=== PATIENT | female | born 1940 | race Caucasian/White ===

== ENCOUNTER 2020-03-17 08:03 | Outpatient (CLI) | payer OTHER, SELFPAY ==
--- NOTE | ~2020-03-17 | XR_ITS ---
EXAMINATION: XR chest 2V EXAM DATE: 03/17/2020 08:25 INDICATION: Shortness of breath. TECHNIQUE: Frontal and lateral projections of the chest obtained and reviewed. There is no prior rohini dy for comparison. FINDINGS: Right middle lobe granuloma. The lungs are otherwise clear. There are no pleural effusion s. The cardiomediastinal silhouette is within normal limits. There is no pneumothorax suspected. P atient has diffuse idiopathic skeletal hyperostosis (DISH). IMPRESSION: No acute cardiopulmonary findings. Reviewed, dictated and finalized at location B.
== END 2020-03-17 08:04 | disposition home or self-care (01) ==
LOC: ANHIMG 08:13
PROVIDERS: PCP Family Medicine; Visit Provider Family Medicine
DX: R06.02 Shortness of breath (principal)
CPT/HCPCS: 71046

== ENCOUNTER 2021-05-06 08:35 | Outpatient (CLI) | payer OTHER, SELFPAY ==
[2021-05-06 09:04] LABS: Anion Gap 8 mmol/L (8-16); Blood Urea Nitrogen 13 mg/dL (7-17); Carbon Dioxide 27 mmol/L (22-30); Chloride 103 mmol/L (98-107); Estimated Glomerular Filt Rate 60; Glucose 112 mg/dL (65-110); Potassium 4.3 mmol/L (3.4-5.0); Sodium 138 mmol/L (137-145)
== END 2021-05-06 08:36 | disposition home or self-care (01) ==
LOC: ANHSURGERY 08:40
PROVIDERS: Anesthesiology; PCP Family Medicine; Visit Provider Surgery
DX: Z79.899 Other long term (current) drug therapy (principal); Z01.818 Encounter for other preprocedural examination
CPT/HCPCS: 36415; 80048

== ENCOUNTER 2021-05-12 01:12 | Day surgery (SDC) | payer OTHER, SELFPAY ==
[2021-05-03 15:22] VITALS: BMI 29.3
--- NOTE | 2021-05-11 13:56 | WPDANESEPPF ---
Anes - Initial Pre Proc Eval Procedure: Operation Date: 05/12/21 10:30 Proposed Procedures p Umbilical Hernia Repair with Mesh - Alexis Rodas MD Date/Time: 05/11/21 13:56 Surgeon: Alexis Rodas MD Pre Op Diagnosis: Umbilical Hernia Patient Data Age: 80 Gender: F Height: 1.55 m Weight: 70.45 kg Allergies Allergy/AdvReac Type Severity Reaction Status Date / Time No Known Allergies Allergy Verified 05/12/21 08:37 Home Medications Medication Instructions Recorded Confirmed Type magnesium 200 mg tablet 200 mg PO DAILY 12/01/20 05/12/21 History cholecalciferol (vitamin D3) 1,250 mcg PO DAILY 05/03/21 05/12/21 History lisinopril-hydrochlorothiazide 1 tablet DAILY 05/03/21 05/12/21 History rosuvastatin 10 mg HS 05/03/21 05/12/21 History onzurxtgwkuu-kvn-cmsz-FA-vit K 1 tab-cap PO DAILY 05/12/21 05/12/21 History [Multi For Her] Patient hx anesthesia problems: none Family hx anesthesia problems: none PMFSH Past Medical History Medical History Combined hyperlipidemia Essential hypertension H/O vaginal delivery x4 Umbilical hernia without obstruction and without gangrene Vitamin D deficiency Surgical History Surgical History S/P cholecystectomy (~1979) Family History Family History Mother Family history of dementia Hypertension Father Hypertension Social History Social History Social History: Retired, . 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 Smoking status: Never smoker Second hand tobacco smoke exposure: No Alcohol intake: current Drinks per week: 3 Substance use: never Substance use type: does not use Living arrangements: with family Spiritual care concerns: No Anes - Eval Final PreProcedure Day of Procedure 05/11/21 13:56 Patient weight: overweight Heart: regular rate and rhythm Lungs: clear to auscultation and normal air movement Airway: Mallampati scale class II Neurological: alert and oriented Last oral intake: >/= 8 hours ASA classification: II Emergent: no Anesthetic plan: proceed Anesthesia type and monitoring: general GIVS and LMA Informed Consent: The patient's anesthetic plan and its attendant risks and benefits were discussed with the patient/family/POA. Questions were solicited and answers provided to the satisfaction of the patient/family/POA.
[2021-05-12] VITALS (7 sets, daily range): BP systolic 117–141; BP diastolic 58–65; PULSE 77–90; RESP 12–20; TEMP 36.3–37.1; O2SAT 98–100
[2021-05-12] MEDS: ACETAMINOPHEN 500 MG TABLET 1000 MG PO (08:49)
[2021-05-12] MEDS: LACTATED RINGERS 1,000 ML 30 ML IV CONT (08:58)
[2021-05-12] MEDS: KETOROLAC 15 MG/ML VIAL (*BKC) IV PUSH (09:00)
--- NOTE | 2021-05-12 10:09 | WPDHPUPDATE1 ---
History and Physical Update Update Date/Time: 05/12/21 10:09 History and Physical has been reviewed, including an updated exam of the patient. There are NO changes in the patient's condition. Risks, benefits, and alternatives have been discussed and questions answered. Patient agrees to proceed with procedure.
[2021-05-12] MEDS: ceFAZolin 2 GM/D5W 50 ML 2 GM/50 ML BAG IVPB (10:18)
--- NOTE | 2021-05-12 11:47 | SUR.PHASEI ---
DR. MORAN AWARE OF PATIENT'S ABNORMAL HEART RHYTHMS. NO SOB. NORMAL HR, BP.
--- NOTE | 2021-05-12 11:47 | W.PM.PROC2 ---
Procedure Note - Detailed Date of Procedure 05/12/21 Pre-op Diagnosis Umbilical Hernia Post-op Diagnosis same Procedure Performed Umbilical hernia repair with 6.6 cm Parietex underlay mesh Surgeon Alexis Rodas MD Associate Teacher Jennie STEWARTA Anesthesia MAC and local (1% lidocaine with epinephrine) Indications Patient has a sizable bulge at the umbilicus which is occasionally painful. She was found to have an umbilical hernia in the office in is taken to surgery now for repair. Findings Umbilical hernia with chronically incarcerated omentum. Defect was about 2 cm. Description of Procedure Patient was taken to surgery and IV sedation was administered. Prep and drape was carried out. The proposed incision was marked along the upper margin of the umbilicus. Local was infiltrated in the area of the anticipated incision and in the deeper subcutaneous tissues. Incision was made dissection was carried down to the hernia sac. The sac was quite large. It was dissected free from the surrounding subcutaneous and the umbilical skin was dissected off the sac. I dissected down to the neck of the hernia sac. Additional local was infiltrated into the neck of the hernia sac as well as to the surrounding fascia. I then divided the hernia sac at its neck and removed the hernia sac. This was discarded. Some of the more chronically incarcerated omentum was then divided using the cautery and this was discarded as well. The remaining omentum was able to be reduced but with some difficulty. Eventually it was completely reduced. I undermined the subcutaneous all around the edges of the hernia defect in anticipation of placement of transfascial sutures. I then infiltrated additional local into the fascia all around the hernia defect. A 6.6 cm Parietex [place] tribe was chosen. It was placed in the defect and centered symmetrically. Cranial and caudal transfascial sutures were then placed. These were placed in such a fashion as to draw the edges of the hernia defect towards 1 another. I then placed right and left lateral transfascial sutures. These were all 0 Ethibond suture. Finally I closed the hernia defect with izjjzi-ks-ysysm mattress sutures of 0 Ethibond. Each of these incorporated a bit of mesh as well. More local was infiltrated all around the area of the repair. I then sutured the umbilical skin to the fascia. The left lateral aspect of the umbilical skin was quite distended from the hernia and was a potential space after repair. I sutured this to some of the subcutaneous trying to obliterate as much space as possible. Once the subcutaneous was adequately closed, I then loosely approximated the skin with interrupted 3 0 and 4 0 Vicryl subcuticular suture. Finally the skin was closed with a running 4-0 Monocryl skin suture. The wound was dressed with Exofin surgical adhesive. Patient was awakened and taken to recovery in good condition. Sponge and needle counts were correct x2. Implants 6.6 cm Parietex [place] tribe Estimated Blood Loss -5.0 Drains No Packing No Pathology none sent Complications No immediate complications Condition stable Disposition PACU
== END 2021-05-12 13:10 | disposition home or self-care (01) ==
PROVIDERS: PCP Family Medicine; Visit Provider Surgery
PROC: (CPT 49585; principal; 2021-05-12 10:30)
DX: K42.9 Umbilical hernia without obstruction or gangrene (principal); E78.2 Mixed hyperlipidemia; I10 Essential (primary) hypertension; E55.9 Vitamin D deficiency, unspecified
CPT/HCPCS: 49585; 36415; 80048; A9270; C1781; J0690; J1100; J1885; J2405; J2704; J3010; J7120

== ENCOUNTER 2023-04-27 14:48 | Outpatient (CLI) | payer OTHER, SELFPAY ==
[2023-04-27 18:32] LABS: Potassium 3.8 mmol/L (3.4-5.0)
[2023-04-27 18:34] LABS: Alanine Aminotransferase 20 U/L (6-35); Albumin Level 3.9 g/dL (3.5-5.1); Alkaline Phosphatase 68 U/L (38-126); Anion Gap 9 mmol/L (8-16); Aspartate Amino Transferase 26 U/L (14-36); Bilirubin,Total 0.5 mg/dL (0.2-1.3); Blood Urea Nitrogen 21 mg/dL (7-17); Calcium 9.8 mg/dL (8.4-10.2); Carbon Dioxide 23 mmol/L (22-30); Chloride 100 mmol/L (98-107); Estimated Glomerular Filt Rate 48; Glucose 97 mg/dL (65-110); Sodium 132 mmol/L (137-145)
== END 2023-04-27 14:49 | disposition home or self-care (01) ==
LOC: ANHGOSHLAB 14:49
PROVIDERS: PCP Family Medicine; Visit Provider Nurse Practitioner Family
DX: Z00.00 Encounter for general adult medical examination without abnormal findings (principal); I10 Essential (primary) hypertension; R63.4 Abnormal weight loss; R63.0 Anorexia
CPT/HCPCS: 36415; 80053

== ENCOUNTER 2023-05-04 14:35 | Outpatient (CLI) | payer OTHER, SELFPAY ==
--- NOTE | ~2023-05-04 | CT_ITS ---
EXAMINATION: CT abdomen w con DATE: 05/04/2023 15:05 INDICATION: Abnormal weight loss. TECHNIQUE: Computed tomography (CT) of the abdomen was performed with 100 mL Omnipaque 350 intravenou s contrast. Automated exposure control and iterative reconstruction technique were employed. The dose -length product was 232.34 mGy-cm. COMPARISON: None. FINDINGS: The visualized portions of the lung bases demonstrate mild atelectasis. A calcified right l juliet nodule and calcified right hilar lymph nodes are consistent with old granulomatous disease. No pl eural effusion. The heart size is normal. There are coronary artery calcifications. No pericardial ef fusion. There is a 5 mm cyst in the liver. There are changes of cholecystectomy. The spleen, pancreas , adrenal glands, and kidneys are normal. Partially visualized is wall thickening of the ascending co karly with surrounding fat stranding. There is mild ileocolic lymphadenopathy. The largest node measure s 11 x 11 mm. There is no free intraperitoneal fluid. There is severe lumbar spondylosis. IMPRESSION: 1. Partially visualized wall thickening of the ascending colon suspicious for primary malignancy. Pel vis CT with contrast is recommended. 2. Mild ileocolic lymphadenopathy suspicious for metastatic disease. Reviewed, dictated and finalized at location A. IMPRESSION: 1. Partially visualized wall thickening of the ascending colon suspicious for p rimary malignancy. Pelvis CT with contrast is recommended. 2. Mild ileocolic lymphadenopathy suspicious for metastatic disease.
== END 2023-05-04 14:36 | disposition home or self-care (01) ==
PROVIDERS: PCP Family Medicine; Visit Provider Nurse Practitioner Family
DX: R63.4 Abnormal weight loss (principal); R63.0 Anorexia
CPT/HCPCS: 74160; Q9967

== ENCOUNTER 2023-06-01 11:20 | Inpatient (IN) | payer OTHER, SELFPAY ==
[2023-06-01] VITALS (13 sets, daily range): BP systolic 94–107; BP diastolic 55–85; PULSE 80–103; RESP 16–18; TEMP 36.2–36.6; O2SAT 99–100; BMI 23.6
--- NOTE | ~2023-06-01 | CT_ITS ---
EXAMINATION: CT diagnostic chest w con DATE: 06/03/2023 16:20 INDICATION: Suspected colon cancer, rule out metastases TECHNIQUE: Computed tomography (CT) of the chest was performed with 75 mL Omnipaque-350 intravenous c ontrast. Additional 3D reconstructions utilizing coronal maximum intensity projection (MIP) were perf ormed. Automated exposure control and iterative reconstruction technique were employed. The dose-jojo th product was 187.87 mGy-cm. COMPARISON: CT abdomen pelvis dated 06/01/2023 FINDINGS: Large calcified nodule right lower lobe and calcified right hilar lymph nodes consistent with old gra nulomatous disease. Scattered mild discoid atelectasis at the lingula and bilateral lower lobes. 2-3 mm pleural-based nodule in the right upper lobe. Additional 2 x 4 mm nodule at the junction of the li ngula and left upper lobe. No other suspicious pulmonary nodules, pneumonia, pulmonary edema or pleur al effusion. Heart size is normal. Atherosclerotic coronary artery calcification. No pericardial effu lu. Thoracic aorta is normal in caliber with no dissection. Small sliding-type hiatal hernia. No pa thologically enlarged thoracic lymphadenopathy. Cholecystectomy clips at the gallbladder fossa. Short segment of dilated small bowel seen in the visualized upper abdomen consistent with previously noted bowel obstruction at the level of the ileocecal valve. Mild thoracic dextrocurvature with mild spond ylosis. There are bridging osteophytes at multiple levels in the spine, consistent with diffuse idiop athic skeletal hyperostosis (DISH). IMPRESSION: 1. A couple <4 mm pulmonary nodules most likely sequela of old granulomatous disease along with calci fied right lower lobe nodule and calcified right hilar lymph nodes. No other lesions suspicious for m etastatic disease. Reviewed, dictated and finalized at location A. IMPRESSION: 1. A couple <4 mm pulmonary nodules most likely sequela of old granulomatous di sease along with calcified right lower lobe nodule and calcified right hilar ly mph nodes. No other lesions suspicious for metastatic disease.
--- NOTE | ~2023-06-01 | CT_ITS ---
CT of the Abdomen and Pelvis: Indication: Nausea, vomiting, diarrhea Technique: 2.5 mm axial scans were obtained through the abdomen and pelvis following intravenous adm inistration of 100 cc of Omnipaque 350. Dose reduction technique was used on this scan by utilizing a utomated exposure control and iterative reconstruction technique. The dose-length product (DLP) was 1 627.47 mGy-cm. COMPARISON: 05/04/2023 Findings: Scans through the lung bases are unremarkable. The liver, spleen, pancreas, adrenals and kidneys are within normal limits. Cholecystectomy clips are present. There are atherosclerotic calcifications of the aorta. No lymphadenopathy. There is masslike wall thickening which appears to be at the ileocecal valve/cecum. There is diffuse dilatation of small bowel proximal to this lesion. There is moderate stool in the distal large bowel. There are several shotty adjacent lymph nodes just superior to the lesion. Images through the pelvis were performed. Urinary bladder unremarkable. No adnexal mass evident. No a scites. Impression: Masslike wall thickening which appears to be at the cecum/ileocecal valve region, suspicious for oscar ocarcinoma, most likely of colonic origin. Associated at least partial small bowel obstruction. Shotty lymph nodes just superior to the lesion, suspicious for small local metastatic lymph nodes. Reviewed, dictated and finalized at location . 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 Associated at least partial small bowel obstruction. Shotty lymph nodes just superior to the lesion, suspicious for small local meta static lymph nodes.
[2023-06-01 12:28] LABS: Basophils Percent Auto 0.3 % (0.2-1.2); Eosinophils Percent Auto 0.1 % (0-4.4); Hematocrit 37.2 % (37.0-47.0); Hemoglobin 12.3 g/dL (12.0-15.0); Immature Granulocyte Absolute 0.04 K/mm3 (0.00-0.031); Immature Granulocyte Percent A 0.4 % (0-0.5); Lymphocytes Absolute Auto 1.82 K/mm3 (0.9-3.2); Lymphocytes Percent Auto 18.8 % (18.3-44.2); Mean Corpuscular HGB Conc 33.1 g/dl (32-36); Mean Corpuscular Hemoglobin 28.9 pg (26-34); Mean Corpuscular Volume 87.5 fl (80-100); Mean Platelet Volume 9.1 fl (7.4-10.4); Monocytes Absolute Auto 0.9 K/mm3 (0.1-0.6); Monocytes Percent Auto 9.2 % (2.6-8.5); Neutrophils Absolute Auto 6.9 K/mm3 (1.3-6.7); Neutrophils Percent Auto 71.2 % (45.5-73.1); Platelet Count Result 430 k/mm3 (150-375); Red Blood Count 4.25 M/mm3 (4.2-5.4); Red Cell Distribution Width 16.3 % (11.5-14.5); White Blood Count 9.7 K/mm3 (4.5-10.0)
[2023-06-01 12:37] LABS: Alanine Aminotransferase 26 U/L (6-35); Albumin Level 4.2 g/dL (3.5-5.1); Alkaline Phosphatase 80 U/L (38-126); Anion Gap 12 mmol/L (8-16); Aspartate Amino Transferase 31 U/L (14-36); Bilirubin,Total 0.6 mg/dL (0.2-1.3); Blood Urea Nitrogen 23 mg/dL (7-17); Calcium 9.3 mg/dL (8.4-10.2); Carbon Dioxide 25 mmol/L (22-30); Chloride 96 mmol/L (98-107); Estimated Glomerular Filt Rate 60; Glucose 102 mg/dL (65-110); Lipase 66 U/L (23-300); Potassium 3.5 mmol/L (3.4-5.0); Sodium 133 mmol/L (137-145)
--- NOTE | 2023-06-01 13:51 | ED.NAVMDI ---
HPI - Nausea/Vomiting/Diarrhea General Chief complaint: Nausea/Vomiting/Diarrhea Stated complaint: nausea and vomiting Time Seen by Provider: 06/01/23 13:12 Source: patient Mode of arrival: ambulatory Limitations: no limitations History of Present Illness HPI Narrative: 82-year-old female history significant for recent abnormal CT of the abdomen showing a liver mass presents the emergency room today with her and daughter with complaints of nausea and vomiting. Per the patient has been she has been vomiting for 3 weeks and unable to keep food down. Patient states she is able to keep water down. Denies any other symptoms at this time. Denies chest pain, dizziness, lightheadedness, back pain, dysuria, urinary frequency, abdominal pain. Per the patient's they were sent to [facility] [place] have not followed up with anybody regarding this mass yet. But states they who do [place] believe at [facility] for this issue. Related Data Home Medications Medication Instructions Recorded Confirmed magnesium 200 mg tablet 200 mg PO DAILY 12/01/20 06/01/23 cholecalciferol (vitamin D3) 1,250 1,250 mcg PO DAILY 05/03/21 06/01/23 mcg (50,000 unit) capsule ntzbbpjbo-ang-dozi fumarate 18 1 tab-cap PO DAILY 05/12/21 06/01/23 mg-FA 600 mcg-vit K 40 mcg capsule (Multi For Her) vit A 300 mcg-C 200 mg-E 27 1 tablet PO HS 06/03/21 06/01/23 mg-lutein 2 mg and minerals tablet (Healthy Eyes) Allergies Allergy/AdvReac Type Severity Reaction Status Date / Time No Known Allergies Allergy Verified 05/10/23 09:03 Review of Systems Review of Systems: All systems reviewed & are unremarkable except as noted in HPI and below PMFSH Past Medical History Medical History Abnormal CT of the abdomen Combined hyperlipidemia Elevated platelet count Essential hypertension H/O vaginal delivery x4 No appetite Umbilical hernia without obstruction and without gangrene Vitamin D deficiency Weight loss, unintentional Surgical History Surgical History H/O umbilical hernia repair Umbilical hernia repair with 6.6 cm Parietex underlay mesh S/P cholecystectomy (~1979) Family History Family History Mother Family history of dementia Hypertension Father Hypertension Social History Social History Social History: Retired, . 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 Smoking status: Never smoker Second hand tobacco smoke exposure: No Alcohol intake: current Drinks per week: 3 Substance use: never Substance use type: does not use Lack of Transportation: No Lack of Food: Never True Current Housing: I Have Housing Concerned About Future Housing: No Difficulty Paying Gas/Electric Bills: No Difficulty Paying for Meds: No Currently Unemployed: No Education: High School Diploma/GED Difficulty w/ Childcare or Family Care: No Living arrangements: with family Spiritual care concerns: No Exam Const: General: cooperative, healthy appearing, comfortable, no acute distress and well developed Orientation/consciousness: patient oriented x3 HENMT: Head: normal to inspection Eyes: General: appearance normal, both eyes and all related structures Resp: Effort & Inspection: normal respiratory effort and able to speak in complete sentences Auscultation: clear to auscultation bilaterally Cardio: Rate: regular rate Rhythm: regular rhythm Heart sounds: S1 normal heart sound present and S2 normal heart sound present GI: Inspection: normal to inspection GI Palp: Yes Soft to palpation and No Tenderness to palpation present (GI) Neuro: Gen
[2023-06-01 15:29] LABS: Add Urine Microscopic? YES; Appearance Urine Clear (Clear); Bacteria Urine None Seen /hpf; Bilirubin Urine Negative (Negative); Blood Urine Negative (Negative); Color Urine Yellow (Yellow); Glucose Urine UA Negative (Negative); Ketones Urine 2+ mg/dL (Negative); Leukocyte Esterase Ur Negative LEU/UL (Negative); Need Manual Microscopic Reviewed; Nitrate Urine Negative (Negative); Protein Urine Trace mg/dL (Negative); RBC Urine 0-2 /hpf (0-2); Specific Grav Ur 1.074 (1.001-1.035); Squamous Epithelial Cell Urine Few /hpf (Few); WBC Urine 0-5 /hpf; pH Urine 5.5 (5.0-9.0)
[2023-06-01] MEDS: PANTOPRAZOLE SODIUM IV 40 MG VIAL IV PUSH (15:39)
--- NOTE | 2023-06-01 16:14 | WPDGICN ---
Assessment and Plan Assessment and plan (1) Abnormal CT of the abdomen: Code(s): R93.5 - Abnormal findings on diagnostic imaging of other abdominal regions, including retroperitoneum Status: Acute Assessment and Plan: CT here today shows: Findings:? Scans through the lung bases are unremarkable. The liver, spleen, pancreas, adrenals and kidneys are within normal limits. Cholecystectomy clips are present. There are atherosclerotic calcifications of the aorta.? No lymphadenopathy. There is masslike wall thickening which appears to be at the ileocecal valve/cecum. There is diffuse dilatation of small bowel proximal to this lesion. There is moderate stool in the distal large bowel. There are several shotty adjacent lymph nodes just superior to the lesion. Images through the pelvis were performed. Urinary bladder unremarkable. No adnexal mass evident. No ascites. 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 Associated at least partial small bowel obstruction. Shotty lymph nodes just superior to the lesion, suspicious for small local metastatic lymph nodes. (2) Weight loss, unintentional: Code(s): R63.4 - Abnormal weight loss Status: Acute Assessment and Plan: she has gradually lost her appetite and because of some nausea has not eaten much in the last week to 10 days. She is able to hold down liquids and boost. (3) Nausea and vomiting: Code(s): R11.2 - Nausea with vomiting, unspecified Status: Acute Assessment and Plan: This began about 10 days ago. Plan She has been admitted and will be placed on liquid diet. We will gradually prep her for colonoscopy to be done on Sunday by Dr. Pettit. GI Consult Note Consult date/time: 06/01/23 16:14 HPI: Loly Duncan is a 82 year old female who presented to the emergency room today with complaints of not being able to eat. She has not been able to get any solid food down for least a week. He has had episodes of vomiting. She can drink liquids but nothing solid. She also has lost about 20 lb since November of this year. She denies abdominal pain. She has had no change in bowel habits, other than having some loose stools just a last couple days. She had CT scan last month showing abnormality in the cecum and ileocecal valve area. Suspecting with malignancy she had been referred to [facility] but had not seen anybody yet. The and then decided to have going to [facility] they want to find somebody here. She had an appointment with our office yesterday but did not show up. she has never had a colonoscopy. Review of Systems Review of Systems: All systems reviewed & are unremarkable except as noted in HPI and below PMFSH Past Medical History Medical History Abnormal CT of the abdomen Combined hyperlipidemia Elevated platelet count Essential hypertension H/O vaginal delivery x4 No appetite Umbilical hernia without obstruction and without gangrene Vitamin D deficiency Weight loss, unintentional Surgical History Surgical History H/O umbilical hernia repair Umbilical hernia repair with 6.6 cm Parietex underlay mesh S/P cholecystectomy (~1979) Family History Family History Mother Family history of dementia Hypertension Father Hypertension Social History Social History Social History: Retired, . 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 Smoking status: Never smoker Second hand tobacco smoke exposure: No Alcohol intake: current Drinks per week: 3 Substance use: never Substance use type: does n
[2023-06-01] MEDS: LACTATED RINGERS 1,000 ML 125 ML IV CONT (17:16)
--- NOTE | 2023-06-01 18:31 | ADMGEN ---
This patient, Loly Duncan, was admitted to Medical Room 260-01 at 1642. Patient/family oriented to hospital policies and general routines including ID bracelet, bed and alarms, visiting hours, pain management, procedures, bathroom and other care routines, personal items, smoking policy, room service/diet, and visiting hours. Information on how to activate the Rapid Response Team has been discussed. Patient/Family are encouraged to report perceived risks to care and to ask questions if they do not understand what they are told or what they should do.
--- NOTE | 2023-06-01 19:42 | PM.IMHP ---
H&P: HPI History of Present Illness Date/Time: 06/01/23 19:42 Chief Complaint: Nausea and Vomiting Narrative: 82 y/o F presents here with persistent nausea with occasional vomiting with PMH of HTN, HLD, and Vitamin D Deficiency. Patient reports she has been persistently nauseous for greater than 1 month, but less than 3 months - unclear start time. Describes poor appetite, nausea with eating, and occasional emesis. Has only been able to tolerate very small meals and has on average can keep most down. However, she reported to the GI corporate health consultant that her PO intake has worsened in the last week. No report of this during my history. No blood in vomit. No dark tarry stools. Reports bowel movements have been normal in consistency, last bowel movement this morning. +Fatigue, +Weakness. Per chart review, patient weighed 73 kgs in November of this year, currently weighs 55 kgs. No complaints at wellness visit on 12/12/22. Patient then saw primary on 04/27/23, at that visit she reported that for the previous 3-4 months she has been having pain in her stomach, poor appetite, and unintentional weight loss. CT scan was ordered of patient's abdomen at this visit, CT showed a partially visualized wall thickening of the ascending colon, suspicious for primary malignancy. No previous colonoscopy. Referred to Oncology ([facility]) and GI. Patient has GI appointment yesterday which was cancelled. Review of Systems Review of Systems: All systems reviewed & are unremarkable except as noted in HPI and below PMFSH Past Medical History Medical History Abnormal CT of the abdomen Combined hyperlipidemia Elevated platelet count Essential hypertension H/O vaginal delivery x4 No appetite Umbilical hernia without obstruction and without gangrene Vitamin D deficiency Weight loss, unintentional Surgical History Surgical History H/O umbilical hernia repair Umbilical hernia repair with 6.6 cm Parietex underlay mesh S/P cholecystectomy (~1979) Family History Family History Mother Family history of dementia Hypertension Father Hypertension Social History Social History (Updated 06/01/23 @ 20:31 by Dot Salomon APRN) Social History: Retired, . Lives at home with her . 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 Smoking status: Never smoker Second hand tobacco smoke exposure: No Alcohol intake: current Alcohol use details: Occasional, at holidays. Substance use: never Substance use type: does not use Lack of Transportation: No Lack of Food: Never True Current Housing: I Have Housing Concerned About Future Housing: No Difficulty Paying Gas/Electric Bills: No Difficulty Paying for Meds: No Currently Unemployed: No Education: High School Diploma/GED Difficulty w/ Childcare or Family Care: No Living arrangements: with family Occupation/Education: retired Spiritual care concerns: No Meds Home Medications and Allergies Home Medications Medication Instructions Recorded Confirmed Type magnesium 200 mg tablet 200 mg PO DAILY 12/01/20 06/01/23 History cholecalciferol (vitamin D3) 1,250 1,250 mcg PO DAILY 05/03/21 06/01/23 History mcg (50,000 unit) capsule nzrxbiocp-uas-qdgn fumarate 18 1 tab-cap PO DAILY 05/12/21 06/01/23 History mg-FA 600 mcg-vit K 40 mcg capsule (Multi For Her) vit A 300 mcg-C 200 mg-E 27 1 tablet PO HS 06/03/21 06/01/23 History mg-lutein 2 mg and minerals tablet (Healthy Eyes) lisinopril 20 1 tablet PO DAILY #30 tabs 01/29/23 06/01/23 Rx mg-hydrochlorothiazide 12.5 mg tablet rosuvastatin 10 mg tablet 10 mg PO HS #30 tabs 01/29/23 06/01/23 Rx Sleep Aid (diphenhydramine) 25 mg PO HS PRN Sleep 06/01/23 06/01/23 History Allergies Aller
[2023-06-01] MEDS: OPTI-GEN TAB 1 TABLET PO (23:22)
[2023-06-01] MEDS: diphenhydrAMINE HCl CAP 25 MG CAPSULE PO (23:22)
[2023-06-01] MEDS: ROSUVASTATIN 10 MG TABLET PO (23:22)
[2023-06-02] VITALS: BP 102/52; PULSE 75; RESP 20; TEMP 36.8; O2SAT 99
[2023-06-02] MEDS: LACTATED RINGERS 1,000 ML 125 ML IV CONT ×3 (01:26→15:17)
[2023-06-02 04:00] VITALS: BP 104/60; PULSE 72; RESP 20; TEMP 36.8; O2SAT 100
[2023-06-02 05:55] LABS: Basophils Absolute Auto 0.1 K/mm3 (0.0-0.1); Basophils Percent Auto 0.9 % (0.2-1.2); Eosinophils Absolute Auto 0.1 K/mm3 (0-0.3); Eosinophils Percent Auto 0.9 % (0-4.4); Hematocrit 31.6 % (37.0-47.0); Hemoglobin 10.3 g/dL (12.0-15.0); Immature Granulocyte Absolute 0.04 K/mm3 (0.00-0.031); Immature Granulocyte Percent A 0.5 % (0-0.5); Lymphocytes Absolute Auto 1.63 K/mm3 (0.9-3.2); Lymphocytes Percent Auto 21.8 % (18.3-44.2); Mean Corpuscular HGB Conc 32.6 g/dl (32-36); Mean Corpuscular Hemoglobin 29.1 pg (26-34); Mean Corpuscular Volume 89.3 fl (80-100); Mean Platelet Volume 9.4 fl (7.4-10.4); Monocytes Absolute Auto 0.8 K/mm3 (0.1-0.6); Neutrophils Absolute Auto 4.9 K/mm3 (1.3-6.7); Neutrophils Percent Auto 64.9 % (45.5-73.1); Platelet Count Result 316 k/mm3 (150-375); Red Blood Count 3.54 M/mm3 (4.2-5.4); Red Cell Distribution Width 16.1 % (11.5-14.5); White Blood Count 7.5 K/mm3 (4.5-10.0)
[2023-06-02 06:07] LABS: Anion Gap 8 mmol/L (8-16); Blood Urea Nitrogen 17 mg/dL (7-17); Calcium 8.8 mg/dL (8.4-10.2); Carbon Dioxide 26 mmol/L (22-30); Chloride 101 mmol/L (98-107); Estimated CRCL calculation 36 ml/min; Estimated Glomerular Filt Rate > 60; Glucose 72 mg/dL (65-110); Potassium 3.7 mmol/L (3.4-5.0); Sodium 135 mmol/L (137-145)
[2023-06-02] MEDS: PANTOPRAZOLE SODIUM IV 40 MG VIAL IV PUSH (08:01)
[2023-06-02] MEDS: MAGNESIUM OXIDE 200 MG TABLET PO (08:01)
[2023-06-02] MEDS: lisinopriL 20 MG TABLET PO (08:01)
[2023-06-02] MEDS: hydroCHLOROthiazide 12.5 MG CAPSULE PO (08:01)
[2023-06-02] MEDS: THERAPEUTIC MULTIVITAMINS/MINERALS TAB (*BKC) 1 TABLET PO (08:01)
--- NOTE | 2023-06-02 08:43 | WPDGIPROGNO ---
Progress Note: A&P Assessment and Plan (1) Abnormal CT of the abdomen: Code(s): R93.5 - Abnormal findings on diagnostic imaging of other abdominal regions, including retroperitoneum Status: Acute Assessment and Plan: CT here today shows: Findings:? Scans through the lung bases are unremarkable. The liver, spleen, pancreas, adrenals and kidneys are within normal limits. Cholecystectomy clips are present. There are atherosclerotic calcifications of the aorta.? No lymphadenopathy. There is masslike wall thickening which appears to be at the ileocecal valve/cecum. There is diffuse dilatation of small bowel proximal to this lesion. There is moderate stool in the distal large bowel. There are several shotty adjacent lymph nodes just superior to the lesion. Images through the pelvis were performed. Urinary bladder unremarkable. No adnexal mass evident. No ascites. 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 Associated at least partial small bowel obstruction. Shotty lymph nodes just superior to the lesion, suspicious for small local metastatic lymph nodes. (2) Weight loss, unintentional: Code(s): R63.4 - Abnormal weight loss Status: Acute Assessment and Plan: she has gradually lost her appetite and because of some nausea has not eaten much in the last week to 10 days. She is able to hold down liquids and boost. (3) Nausea and vomiting: Code(s): R11.2 - Nausea with vomiting, unspecified Status: Acute Assessment and Plan: This began about 10 days ago. Plan She has been admitted and will be placed on liquid diet. We will gradually prep her for colonoscopy to be done on Sunday by Dr. Pettit. Subjective Date/time seen: 06/02/23 08:43 she is tolerating liquids. She has only had some water in gel so far but is willing to try supplements or pudding today. I discussed with her and her son that we will begin her bowel prep this afternoon. Dr. Pettit will be doing her procedure Sunday morning as I will be out of town. Exam Const: General: cooperative, healthy appearing and thin Nutritional Appearance: thin Orientation/consciousness: patient oriented x3 HENMT: Head: normal to inspection Ears: hearing grossly normal bilaterally Mouth: Yes Normal oral and palatal mucosa present Eyes: General: appearance normal, both eyes and all related structures Neck: Neck: normal visual inspection Chest: Chest palpation & inspection: normal inspection of the chest Resp: Effort & Inspection: normal respiratory effort Auscultation: clear to auscultation bilaterally Cardio: Rate: regular rate Rhythm: regular rhythm GI: Inspection: normal to inspection Auscultation: normal bowel sounds Skin: General skin exam: normal color and no jaundice Neuro: General: patient oriented x3 Speech: normal speech Objective Data Vital Signs Vital Signs: Vital Signs - 24 hr 06/01/23 11:45 06/01/23 14:51 06/01/23 13:48 Temperature 36.2 C L 36.5 C Pulse Rate 103 H 84 Respiratory Rate 16 17 Blood Pressure 100/64 Pulse Oximetry 100 100 Oxygen Delivery Room Air 06/01/23 14:03 06/01/23 14:37 06/01/23 15:05 Temperature Pulse Rate 90 84 84 Respiratory Rate 16 Blood Pressure Pulse Oximetry 100 99 100 Oxygen Delivery 06/01/23 15:09 06/01/23 15:15 06/01/23 15:48 Temperature Pulse Rate 90 84 98 Respiratory Rate 18 Blood Pressure 101/74 Pulse Oximetry 100 100 Oxygen Delivery 06/01/23 16:36 06/01/23 17:11 06/01/23 16:55 Temperature 36.2 C L 36.6 C Pulse Rate 91 80 Respiratory Rate 16 18 Blood Pressure 107/85 102/55 L Pulse Oximetry 100 100 Oxygen Delivery Room Air 06/01/23 20:26 06/01/23 20:00 06/02/23 00:00 Temperature 36.5 C 36.8 C Pulse Rate 83 83 75 Respiratory Rate 18 18 20 Blood Pressure 94/56 L 10
--- NOTE | 2023-06-02 10:32 | PC.NURSE ---
spoke with about vit D dose. stated when he goes back home he will look at the bottle and let staff know due to unsure the exact dose now.
--- NOTE | 2023-06-02 11:27 | PM.IMPN ---
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 Associated at least partial small bowel obstruction. Shotty lymph nodes just superior to the lesion, suspicious for small local metastatic lymph nodes. Patient has been evaluated by GI and General surgery. She will undergo colonoscopy in 2 days and be on a liquid diet until then. (2) Weight loss, unintentional: Code(s): R63.4 - Abnormal weight loss Status: Acute Assessment and Plan: 30 lb weight loss and no appetite recently with associated findings of concern for colonic mass. Full liquid diet with dietary supplements until after colonoscopy (3) Nausea and vomiting: Code(s): R11.2 - Nausea with vomiting, unspecified Status: Acute Assessment and Plan: ER visit that led to admission was due to nausea and vomiting. Patient denies nausea at this time. She is tolerating full liquid diet. (4) Essential hypertension: Code(s): I10 - Essential (primary) hypertension Status: Chronic Assessment and Plan: Blood pressures have been soft. Patient is on IV fluids 125 per hour. Will hold lisinopril/ HCTZ for now. (5) No appetite: Code(s): R63.0 - Anorexia Status: Acute Assessment and Plan: See 1 and 2 Time Spent With Patient Time with patient: 25 - 35 minutes Subjective Date/time seen: 06/02/23 11:27 Interval history: From Surgery consultation note: This is an 82-year-old woman who presented to the emergency department on 06/01/2023 with reports of nausea and vomiting.? Patient states that she has not had any bowel issues and states that her bowels have been moving.? She also states that she does not see any blood in her stool or complain of black tarry stools.? She has not had an appetite and has been losing weight.? She denies any bloating associated with this.? She was seen in her PCP office on 04/27/2023 for weight loss.? She had lost about 30 lb unintentionally.? Her PCPs note says that she has had some abdominal pain for 3-4 months.? When asked her symptoms today she says she is not experiencing any abdominal pain.? A CT abdomen with contrast was obtained on 05/04/2023 by her PCP and this showed evidence of partial visualization of thickening of the ascending colon and mild ileocolic lymphadenopathy suspicious for primary malignancy.? She was also noted to have a 5 mm cyst in the liver without any definite signs of distant metastases.? Her PCPs office discuss the CT results and was in the process of arranging oncology and GI referral.? She presented back to the emergency department yesterday with ongoing worsening symptoms of poor appetite.? CT in the emergency department showed evidence of masslike wall thickening at the cecum/ileocecal valve region suspicious for adenocarcinoma.? There were signs of at least partial small bowel obstruction and enlarged lymph nodes just superior to the lesion.? No evidence of liver metastases.? Patient was admitted for further treatment and is currently on a liquid diet.? GI has seen the patient and is planning for colonoscopy on Sunday.? Patient has never had a colonoscopy before.? She does believe that her mother had colon cancer. Patient denies any symptoms at this time. Patient notes some memory problems and recent weight loss/decreased appetite. Family adds that patient was vomiting solid foods but tolerating liquids. Review of Systems Review of Systems: All systems reviewed & are unremarkable except as noted in HPI and below Exam Narrative: GENERAL: Generally well appearing, alert and oriented but forgetful, in no apparent distress. She is pleasant and conversant in full sentences. HEENT: Pupils are equally
--- NOTE | 2023-06-02 12:42 | PM.CNGS ---
Assessment and Plan Assessment and plan (1) Abnormal CT of the abdomen: Code(s): R93.5 - Abnormal findings on diagnostic imaging of other abdominal regions, including retroperitoneum Status: Acute Assessment and Plan: I reviewed the CT and discussed the findings with the patient and her family. She has evidence of a mass at the cecum which on imaging appears to be causing at least a partial small bowel obstruction. I interrogated patient thoroughly about any signs of obstruction, but she denies bloating, nausea, vomiting. She states that she just does not feel like eating and does not have an appetite. She has been having bowel movements. I agree with further evaluation by GI with colonoscopy. Will await those results to discuss further treatment options. If she is tolerating a diet and does not have findings suspicious for bowel obstruction, then further intervention could be delayed until after reviewing the biopsy results. I discussed that this is likely colon cancer but there does not appear to be any clear evidence of distant metastases. Will check CEA level and CT chest tomorrow for further workup. Patient may be a surgical candidate for right hemicolectomy, but timing of this will depend partially on the further workup and biopsy results. Will continue to follow along with patient. (2) Weight loss, unintentional: Code(s): R63.4 - Abnormal weight loss Status: Acute (3) Essential hypertension: Code(s): I10 - Essential (primary) hypertension Status: Chronic History of Present Illness Consult details Consult date: 06/02/23 Reason for consult: other (Cecal mass) Requesting physician: Patty Ricardo APRN Narrative: This is an 82-year-old woman who I am asked to see for a suspected colon mass on CT. She presented to the emergency department on 06/01/2023 with reports of nausea and vomiting. Patient states that she has not had any bowel issues and states that her bowels have been moving. She also states that she does not see any blood in her stool or complain of black tarry stools. She has not had an appetite and has been losing weight. She denies any bloating associated with this. She was seen in her PCP office on 04/27/2023 for weight loss. She had lost about 30 lb unintentionally. Her PCPs note says that she has had some abdominal pain for 3-4 months. When asked her symptoms today she says she is not experiencing any abdominal pain. A CT abdomen with contrast was obtained on 05/04/2023 by her PCP and this showed evidence of partial visualization of thickening of the ascending colon and mild ileocolic lymphadenopathy suspicious for primary malignancy. She was also noted to have a 5 mm cyst in the liver without any definite signs of distant metastases. Her PCPs office discuss the CT results and was in the process of arranging oncology and GI referral. She presented back to the emergency department yesterday with ongoing worsening symptoms of poor appetite. CT in the emergency department showed evidence of masslike wall thickening at the cecum/ileocecal valve region suspicious for adenocarcinoma. There were signs of at least partial small bowel obstruction and enlarged lymph nodes just superior to the lesion. No evidence of liver metastases. Patient was admitted for further treatment and is currently on a liquid diet. GI has seen the patient and is planning for colonoscopy on Sunday. Patient has never had a colonoscopy before. She does believe that her mother had colon cancer. Review of Systems Review of Systems: All systems reviewed & are unremarkable except as noted in HPI and below Constitutional: Constitutional: Reports as per HPI, Reports fatigue, Reports poor appetite and Reports weight loss Eyes: Eyes: Denies change in vision ENT: Denies hearing loss, Denies neck pain and Denies sore throat Cardiovascular: Cardiovascular: Denies chest pain and Denies dyspnea Respiratory: Resp
[2023-06-02 14:00] VITALS: BP 104/60; PULSE 74; RESP 16; TEMP 36.4; O2SAT 100
[2023-06-02] MEDS: MAGNESIUM CITRATE 300 ML BTL 180 ML PO (15:13)
[2023-06-02 20:00] VITALS: PULSE 74; RESP 16; O2SAT 100
[2023-06-02 20:54] VITALS: BP 127/63; PULSE 82; RESP 16; TEMP 36.4; O2SAT 100
[2023-06-02] MEDS: OPTI-GEN TAB 1 TABLET PO (20:55)
[2023-06-02] MEDS: traZODone HCL 50 MG TABLET PO (20:56)
[2023-06-02] MEDS: ROSUVASTATIN 10 MG TABLET PO (20:56)
[2023-06-03] MEDS: LACTATED RINGERS 1,000 ML 125 ML IV CONT ×2 (03:10→21:51)
[2023-06-03 05:21] LABS: Hematocrit 29.8 % (37.0-47.0); Hemoglobin 10.1 g/dL (12.0-15.0); Mean Corpuscular HGB Conc 33.9 g/dl (32-36); Mean Corpuscular Hemoglobin 29.7 pg (26-34); Mean Corpuscular Volume 87.6 fl (80-100); Mean Platelet Volume 9.3 fl (7.4-10.4); Platelet Count Result 298 k/mm3 (150-375); Red Cell Distribution Width 16.3 % (11.5-14.5); White Blood Count 7.3 K/mm3 (4.5-10.0)
[2023-06-03 05:33] VITALS: BP 108/54; PULSE 73; RESP 16; TEMP 36.9; O2SAT 98
[2023-06-03 05:34] LABS: Anion Gap 3 mmol/L (8-16); Blood Urea Nitrogen 12 mg/dL (7-17); Calcium 8.6 mg/dL (8.4-10.2); Carbon Dioxide 32 mmol/L (22-30); Chloride 101 mmol/L (98-107); Estimated CRCL calculation 36 ml/min; Estimated Glomerular Filt Rate > 60; Glucose 86 mg/dL (65-110); Potassium 3.1 mmol/L (3.4-5.0); Sodium 136 mmol/L (137-145)
[2023-06-03 06:02] LABS: Carcinoembryonic Antigen 4.1 ng/mL (0.0-3.0)
[2023-06-03] MEDS: MAGNESIUM OXIDE 200 MG TABLET PO (08:30)
[2023-06-03] MEDS: THERAPEUTIC MULTIVITAMINS/MINERALS TAB (*BKC) 1 TABLET PO (08:30)
[2023-06-03] MEDS: POTASSIUM CHLORIDE 20 MEQ ER TABLET 40 MEQ PO (08:30)
[2023-06-03] MEDS: PANTOPRAZOLE SODIUM IV 40 MG VIAL IV PUSH (08:30)
[2023-06-03] MEDS: BISACODYL 5 MG TABLET EC 10 MG PO ×3 (12:02→21:59)
--- NOTE | 2023-06-03 12:03 | PM.PNGS ---
Progress Note: A&P Assessment and Plan (1) Abnormal CT of the abdomen: Code(s): R93.5 - Abnormal findings on diagnostic imaging of other abdominal regions, including retroperitoneum Status: Acute Assessment and Plan: Awaiting further workup with colonoscopy and CT chest. Will determine surgery based on these findings. Discussed proceeding during this hospitalization vs discharging and planning in the next couple weeks. Much of this will be based on colonoscopy findings. (2) Colonic mass: Code(s): K63.89 - Other specified diseases of intestine Status: Acute (3) Weight loss, unintentional: Code(s): R63.4 - Abnormal weight loss Status: Acute (4) Essential hypertension: Code(s): I10 - Essential (primary) hypertension Status: Chronic Subjective Subjective Date/Time Seen: 06/03/23 12:03 Interval history: Tolerating liquids. No bloating or nausea. Bowels moving. Denies abdominal pain. Exam GI: Inspection: non-distended GI Palp: Yes Soft to palpation, No Tenderness to palpation present (GI) and No Guarding due to palpation present (GI) Auscultation: normal bowel sounds Objective Data Vital Signs Vital Signs: Vital Signs - 24 hr 06/02/23 14:00 06/02/23 20:00 06/02/23 20:54 Temperature 36.4 C L 36.4 C Pulse Rate 74 74 82 Respiratory Rate 16 16 16 Blood Pressure 104/60 127/63 Pulse Oximetry 100 100 100 Oxygen Delivery Room Air 06/03/23 05:33 06/03/23 08:00 Temperature 36.9 C Pulse Rate 73 Respiratory Rate 16 Blood Pressure 108/54 L Pulse Oximetry 98 Oxygen Delivery Room Air Intake/Output Intake/Output: Intake & Output 05/31/23 06/01/23 06/02/23 06/03/23 23:59 23:59 23:59 23:59 Intake Total 5100 410 Output Total 50 Balance -50 5100 410 Meds/Results Medications: Active Medications Generic Name Dose Route Start Last Admin Trade Name Freq PRN Reason Stop Dose Admin Acetaminophen 650 mg 06/01/23 20:56 Acetaminophen 325 Mg Tablet PO Q4H PRN Mild Pain (1-3) or Fever Bisacodyl 10 mg 06/03/23 12:00 06/03/23 12:02 Bisacodyl 5 Mg Tablet Ec PO 06/03/23 21:01 10 mg 1200,1500,2100 REGINO Administration Hydrochlorothiazide 12.5 mg 06/02/23 09:00 06/02/23 08:01 Hydrochlorothiazide 12.5 Mg Capsule PO 12.5 mg QAM REGINO Administration Lactated Ringer's 1,000 mls @ 125 mls/hr 06/01/23 15:25 06/03/23 11:18 Lr - Lactated Ringers Iv IV CONT 0 mls/hr .Q8H REGINO Infusion Lisinopril 20 mg 06/02/23 09:00 06/02/23 08:01 Lisinopril 20 Mg Tablet PO 20 mg QAM REGINO Administration Magnesium Oxide 200 mg 06/02/23 09:00 06/03/23 08:30 Magnesium Oxide 200 Mg Tablet PO 200 mg DAILY REGINO Administration Morphine Sulfate 2 mg 06/01/23 15:25 Morphine Sulfate (*Crx) 2 Mg/Ml Inj IV PUSH Q2H PRN Pain Rated 7-10 Multivitamins/Calcium 1 tablet 06/02/23 09:00 06/03/23 08:30 Therapeutic Multivitamins/Minerals Tab (*Bkc) PO 1 tablet DAILY REGINO Administration Multivitamins/Minerals 1 tablet 06/01/23 21:00 06/02/23 20:55 Opti-Gen Tab PO 1 tablet HS REGINO Administration Ondansetron HCl 4 mg 06/01/23 15:25 Ondansetron Inj 4 Mg/2 Ml Vial IV PUSH Q4H PRN Nausea Pantoprazole Sodium 40 mg 06/01/23 15:30 06/03/23 08:30 Pantoprazole Sodium Iv 40 Mg Vial IV PUSH 40 mg QAM REGINO Administration Polyethylene Glycol 238 gm 06/03/23 14:00 Polyethylene Glycol 3350 238 Gm Bottle PO 06/03/23 14:01 ONCE ONE Rosuvastatin Calcium 10 mg 06/01/23 21:00 06/02/23 20:56 Rosuvastatin 10 Mg Tablet PO 10 mg HS REGINO Administration Trazodone HCl 50 mg 06/02/23 21:00 06/02/23 20:56 Trazodone Hcl 50 Mg Tablet PO 50 mg HS REGINO Administration Radiology Results: ITS Impressions Abdomen/Pelvis CT 06/01/23 14:40 Impression: Masslike wall thickening which appears to be at the cecum/ileocecal valve region, suspicious f
[2023-06-03] MEDS: POTASSIUM CHLORIDE INJ 40 MEQ in SODIUM CHLORIDE 0.9% IV 500 ML 130 MEQ IVPB (12:31)
--- NOTE | 2023-06-03 12:33 | PM.IMPN ---
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 Associated at least partial small bowel obstruction. Shotty lymph nodes just superior to the lesion, suspicious for small local metastatic lymph nodes. Patient has been evaluated by GI and General surgery. She will undergo colonoscopy in 2 days and be on a liquid diet until then. 06/03: bowel prep today and colonoscopy tomorrow. (2) Weight loss, unintentional: Code(s): R63.4 - Abnormal weight loss Status: Acute Assessment and Plan: 30 lb weight loss and no appetite recently with associated findings of concern for colonic mass. Full liquid diet with dietary supplements until after colonoscopy (3) Nausea and vomiting: Code(s): R11.2 - Nausea with vomiting, unspecified Status: Acute Assessment and Plan: ER visit that led to admission was due to nausea and vomiting. Patient denies nausea at this time. She is tolerating full liquid diet. (4) Essential hypertension: Code(s): I10 - Essential (primary) hypertension Status: Chronic Assessment and Plan: Blood pressures have been soft. Patient is on IV fluids 125 per hour. Will hold lisinopril/ HCTZ for now. 06/03: Blood pressure reviewed. Continue IV fluids and hold home antihypertensives. (5) No appetite: Code(s): R63.0 - Anorexia Status: Acute Assessment and Plan: See 1 and 2 Plan Clear liquid diet today Bowel prep this evening. Colonoscopy tomorrow. Continue IV fluids and IV potassium replacement. New IV established by this provider in left hand today. Decision on surgical intervention will happen after colonoscopy. Time Spent With Patient Time: Had to establish IV access as nursing was unable to do so Time with patient: Greater than 35 minutes Subjective Date/time seen: 06/03/23 12:33 Interval history: Patient reports passing stool x3 without difficulty. She denies nausea or vomiting. She is able to tolerate clear liquid diet with supplements. Plan is for colonoscopy tomorrow. Patient denies any complaints at all. Nursing staff advised that patient lost IV access and numerous nurses had looked for additional access without success. I established IV in left hand with 22 gauge so patient could resume her IV fluids. Review of Systems Review of Systems: All systems reviewed & are unremarkable except as noted in HPI and below Exam Narrative: GENERAL: Generally well appearing, alert and oriented but forgetful, in no apparent distress. She is pleasant and conversant in full sentences. HEENT: Pupils are equally round and briskly reactive to light. Extraocular muscles are intact. Oral mucous membranes are moist without lesions. NECK: The patient has no noted JVD. No adenopathy is appreciated. CHEST/LUNGS: Lungs are clear bilaterally without rhonchi, rales, or wheezes. There is no subcutaneous air appreciated. There is no tenderness to the chest wall. HEART: The patient has a regular rate and rhythm. No murmurs, rubs, or gallops are appreciated. Distal pulses are 2+. No carotid bruits appreciated. ABDOMEN: The patient's abdomen is soft, nontender, and nondistended. Bowel sounds are positive. No peritoneal signs. EXTREMITIES: The patient has no peripheral edema. There is no focal long bone tenderness or deformity. Scattered bruises to bilateral upper extremities from failed IV attempts. Mild swelling to the left upper arm from IV fluid infiltration SKIN: The patient's skin is warm and dry, without rashes or lesions. PSYCHIATRIC: The patient has normal mental status and has an appropriate affect. Forgetfulness noted. NEUROLOGIC: There are no gross deficits to the cranial nerves.
[2023-06-03] MEDS: polyethylene glycoL 3350 238 GM BOTTLE PO (13:28)
[2023-06-03 14:00] VITALS: BP 135/74; PULSE 85; RESP 16; TEMP 36.9; O2SAT 92
[2023-06-03 19:43] VITALS: BP 120/77; PULSE 86; RESP 18; TEMP 36.4; O2SAT 95
[2023-06-03] MEDS: traZODone HCL 50 MG TABLET PO (21:54)
[2023-06-03] MEDS: ROSUVASTATIN 10 MG TABLET PO (21:54)
[2023-06-03] MEDS: OPTI-GEN TAB 1 TABLET PO (21:54)
[2023-06-04] VITALS (8 sets, daily range): BP systolic 76–188; BP diastolic 46–68; PULSE 64–101; RESP 16–24; TEMP 36.2–36.9; O2SAT 97–100; BMI 23.6
[2023-06-04] MEDS: LACTATED RINGERS 1,000 ML 125 ML IV CONT ×2 (06:10→20:01)
--- NOTE | 2023-06-04 06:43 | PC.NURSE ---
I reviewed the License RN's documentation and agree with the findings.
[2023-06-04] MEDS: ACETAMINOPHEN 325 MG TABLET 650 MG PO (06:48)
[2023-06-04] MEDS: MAGNESIUM CITRATE 300 ML BTL PO (08:10)
[2023-06-04] MEDS: PANTOPRAZOLE SODIUM IV 40 MG VIAL IV PUSH (08:10)
--- NOTE | 2023-06-04 11:42 | PM.PNGS ---
Progress Note: A&P Assessment and Plan (1) Abnormal CT of the abdomen: Code(s): R93.5 - Abnormal findings on diagnostic imaging of other abdominal regions, including retroperitoneum Status: Acute Assessment and Plan: CT chest showed no evidence of metastatic disease. Awaiting colonoscopy today for further workup. We will decide further plan for surgery depending on colonoscopy results. (2) Colonic mass: Code(s): K63.89 - Other specified diseases of intestine Status: Acute (3) Weight loss, unintentional: Code(s): R63.4 - Abnormal weight loss Status: Acute (4) Essential hypertension: Code(s): I10 - Essential (primary) hypertension Status: Chronic Plan I have discussed the patient's case and plan of care with Dr. East. Subjective Subjective Date/Time Seen: 06/04/23 10:42 Patient reports: no new complaints, flatus, bowel movement and vomiting (One episode of vomiting last night) Interval history: This is an 82-year-old woman who was admitted for CT evidence of possible colon mass near the cecum with partial small bowel obstruction secondary to cecal mass. Chart reviewed. patient doing well today. Was able the tolerate the bowel prep, but did have an episode of vomiting last night. Plan for colonoscopy today. No other new complaints at this time. Review of Systems Review of Systems: All systems reviewed & are unremarkable except as noted in HPI and below Exam Const: General: alert; No acute distress GI: Inspection: non-distended GI Palp: Yes Soft to palpation, No Tenderness to palpation present (GI), No Guarding due to palpation present (GI) and No Rebound tenderness present Auscultation: normal bowel sounds Objective Data Vital Signs Vital Signs: Vital Signs - 24 hr 06/03/23 14:00 06/03/23 19:43 06/03/23 20:00 Temperature 98.4 F 97.5 F L Pulse Rate 85 86 Respiratory Rate 16 18 Blood Pressure 135/74 120/77 Pulse Oximetry 92 95 Oxygen Delivery Room Air 06/04/23 04:40 Temperature 97.2 F L Pulse Rate 84 Respiratory Rate 18 Blood Pressure 112/68 Pulse Oximetry 100 Oxygen Delivery Intake/Output Intake/Output: Intake & Output 06/01/23 06/02/23 06/03/23 06/04/23 23:59 23:59 23:59 23:59 Intake Total 5100 2350 1120 Output Total 50 Balance -50 5100 2350 1120 Meds/Results Medications: Active Medications Generic Name Dose Route Start Last Admin Trade Name Freq PRN Reason Stop Dose Admin Acetaminophen 650 mg 06/01/23 20:56 06/04/23 06:48 Acetaminophen 325 Mg Tablet PO 650 mg Q4H PRN Administration Mild Pain (1-3) or Fever Hydrochlorothiazide 12.5 mg 06/02/23 09:00 06/02/23 08:01 Hydrochlorothiazide 12.5 Mg Capsule PO 12.5 mg QAM REGINO Administration Lactated Ringer's 1,000 mls @ 125 mls/hr 06/01/23 15:25 06/04/23 06:10 Lr - Lactated Ringers Iv IV CONT 125 mls/hr .Q8H REGINO Administration Lisinopril 20 mg 06/02/23 09:00 06/02/23 08:01 Lisinopril 20 Mg Tablet PO 20 mg QAM REGINO Administration Magnesium Oxide 200 mg 06/02/23 09:00 06/03/23 08:30 Magnesium Oxide 200 Mg Tablet PO 200 mg DAILY REGINO Administration Morphine Sulfate 2 mg 06/01/23 15:25 Morphine Sulfate (*Crx) 2 Mg/Ml Inj IV PUSH Q2H PRN Pain Rated 7-10 Multivitamins/Calcium 1 tablet 06/02/23 09:00 06/03/23 08:30 Therapeutic Multivitamins/Minerals Tab (*Bkc) PO 1 tablet DAILY REGINO Administration Multivitamins/Minerals 1 tablet 06/01/23 21:00 06/03/23 21:54 Opti-Gen Tab PO 1 tablet HS REGINO Administration Ondansetron HCl 4 mg 06/01/23 15:25 Ondansetron Inj 4 Mg/2 Ml Vial IV PUSH Q4H PRN Nausea Pantoprazole Sodium 40 mg 06/01/23 15:30 06/04/23 08:10 Pantoprazole Sodium Iv 40 Mg Vial IV PUSH 40 mg QAM REGINO Administration Rosuvastatin Calcium 10 mg 06/01/23 21:00 06/03/23 21:54 Rosuvastatin 10 Mg Tablet PO 10 mg HS REGINO Admini
--- NOTE | 2023-06-04 12:26 | PC.NURSE ---
Addendum entered by Donna Blair RN 06/04/23 12:27: To GI lab per robbie IV left wrist. Report given to Jennifer BRISENO. Original Note: To GI Lab per [ ], IV [ ]. Report given to [ ].
[2023-06-04] MEDS: LACTATED RINGERS 1,000 ML 150 ML IV CONT (12:44)
--- NOTE | 2023-06-04 13:37 | WPDANESEPPF ---
Anes - Initial Pre Proc Eval Procedure: Operation Date: 06/04/23 14:15 Proposed Procedures p Screening Colonoscopy - Demetris Smith MD Date/Time: 06/04/23 13:37 Surgeon: Maureen Lux MD Pre Op Diagnosis: Partial Small Bowel Obstruction Patient Data Age: 82 Gender: F Height: 1.55 m Weight: 56.6 kg Last Vital Signs Temp 97.7 F 06/04/23 12:41 Pulse 78 06/04/23 12:41 Resp 16 06/04/23 12:41 BP 188/63 H 06/04/23 12:41 Pulse Ox 99 06/04/23 12:41 O2 Del Method Room Air 06/04/23 12:41 Allergies Allergy/AdvReac Type Severity Reaction Status Date / Time No Known Allergies Allergy Verified 06/04/23 12:39 Home Medications Medication Instructions Recorded Confirmed Type magnesium 200 mg tablet 200 mg PO DAILY 12/01/20 06/01/23 History cholecalciferol (vitamin D3) 1,250 1,250 mcg PO DAILY 05/03/21 06/01/23 History mcg (50,000 unit) capsule [id number] fumarate 18 1 tab-cap PO DAILY 05/12/21 06/01/23 History mg-FA 600 mcg-vit K 40 mcg capsule (Multi For Her) vit A 300 mcg-C 200 mg-E 27 1 tablet PO HS 06/03/21 06/01/23 History mg-lutein 2 mg and minerals tablet (Healthy Eyes) lisinopril 20 1 tablet PO DAILY #30 tabs 01/29/23 06/01/23 Rx mg-hydrochlorothiazide 12.5 mg tablet rosuvastatin 10 mg tablet 10 mg PO HS #30 tabs 01/29/23 06/01/23 Rx Sleep Aid (diphenhydramine) 25 mg PO HS PRN Sleep 06/01/23 06/01/23 History Patient hx anesthesia problems: none Family hx anesthesia problems: none Results Review: All pre-operative results and documents have been reviewed as part of the pre-operative evaluation. FORMERLY [facility] Past Medical History Medical History Abnormal CT of the abdomen Combined hyperlipidemia Elevated platelet count Essential hypertension H/O vaginal delivery x4 No appetite Umbilical hernia without obstruction and without gangrene Vitamin D deficiency Weight loss, unintentional Surgical History Surgical History H/O umbilical hernia repair Umbilical hernia repair with 6.6 cm Parietex underlay mesh S/P cholecystectomy (~1979) Family History Family History (Updated 06/02/23 @ 12:50 by Boby East DO) Mother Family history of dementia Hypertension Carcinoma of colon Father Hypertension Social History Social History (Updated 06/01/23 @ 20:31 by Dot Salomon, REGULO) Social History: Retired, . Lives at home with her . 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 Smoking status: Never smoker Second hand tobacco smoke exposure: No Alcohol intake: current Alcohol use details: Occasional, at holidays. Substance use: never Substance use type: does not use Lack of Transportation: No Lack of Food: Never True Current Housing: I Have Housing Concerned About Future Housing: No Difficulty Paying Gas/Electric Bills: No Difficulty Paying for Meds: No Currently Unemployed: No Education: High School Diploma/GED Difficulty w/ Childcare or Family Care: No Living arrangements: with family Occupation/Education: retired Spiritual care concerns: No Anes - Eval Final PreProcedure Day of Procedure 06/04/23 13:37 Patient weight: normal Heart: regular rate and rhythm Lungs: clear to auscultation Airway: Mallampati scale class II Neurological: alert and oriented Last oral intake: >/= 8 hours ASA classification: III Emergent: no Anesthetic plan: proceed Anesthesia type and monitoring: general GIVS and standard monitoring Results Review: All pre-operative results and documents have been reviewed as part of the pre-operative evaluation. Informed Consent: The patient's anesthetic plan and its attendant risks and benefits were discussed with the patient/family/POA. Questions were solicited and answers provided to the satis
--- NOTE | 2023-06-04 15:11 | PM.IMPN ---
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 Associated at least partial small bowel obstruction. Shotty lymph nodes just superior to the lesion, suspicious for small local metastatic lymph nodes. Patient has been evaluated by GI and General surgery. She will undergo colonoscopy in 2 days and be on a liquid diet until then. 06/03: bowel prep today and colonoscopy tomorrow. 06/04: colonoscopy reports malignant-appearing masses in the ascending colon and cecum, Oncology to be notified by GI and surgery already on the case (2) Weight loss, unintentional: Code(s): R63.4 - Abnormal weight loss Status: Acute Assessment and Plan: 30 lb weight loss and no appetite recently with associated findings of concern for colonic mass. Full liquid diet with dietary supplements until after colonoscopy, clear liquid after colonoscopy (3) Nausea and vomiting: Code(s): R11.2 - Nausea with vomiting, unspecified Status: Acute Assessment and Plan: ER visit that led to admission was due to nausea and vomiting. Patient denies nausea at this time. She is tolerating full liquid diet. 06/04: One episode vomiting overnight, tolerated bowel prep (4) Essential hypertension: Code(s): I10 - Essential (primary) hypertension Status: Chronic Assessment and Plan: Blood pressures have been soft. Patient is on IV fluids 125 per hour. Will hold lisinopril/ HCTZ for now. 06/04: Blood pressure reviewed. Continue IV fluids and hold home antihypertensives. (5) No appetite: Code(s): R63.0 - Anorexia Status: Acute Assessment and Plan: See 1 and 2 Plan colonoscopy completed. Clear liquid diet to follow. Continue IV fluids IV/PO potassium replacement PRN Decision on surgical intervention will happen after colonoscopy. Time Spent With Patient Time with patient: 25 - 35 minutes Subjective Date/time seen: 06/04/23 15:11 Interval history: Patient reported an episode of vomiting overnight. She was able to tolerate bowel prep. Patient underwent colonoscopy or multiple biopsies were taken, 2 polyps removed and a large malignant-appearing mass was noted. Gastroenterology notes that he will notify Oncology and surgery is already on the case. Before procedure patient had no pain, no real complaints. Review of Systems Review of Systems: All systems reviewed & are unremarkable except as noted in HPI and below Exam Narrative: GENERAL: Generally well appearing, alert and oriented but forgetful, in no apparent distress. She is pleasant and conversant in full sentences. HEENT: Pupils are equally round and briskly reactive to light. Extraocular muscles are intact. Oral mucous membranes are moist without lesions. NECK: The patient has no noted JVD. No adenopathy is appreciated. CHEST/LUNGS: Lungs are clear bilaterally without rhonchi, rales, or wheezes. There is no subcutaneous air appreciated. There is no tenderness to the chest wall. HEART: The patient has a regular rate and rhythm. No murmurs, rubs, or gallops are appreciated. Distal pulses are 2+. No carotid bruits appreciated. ABDOMEN: The patient's abdomen is soft, nontender, and nondistended. Bowel sounds are positive. No peritoneal signs. EXTREMITIES: The patient has no peripheral edema. There is no focal long bone tenderness or deformity. Scattered bruises to bilateral upper extremities from failed IV attempts. Mild swelling to the left upper arm from IV fluid infiltration SKIN: The patient's skin is warm and dry, without rashes or lesions. PSYCHIATRIC: The patient has normal mental status and has an appropriate affect. Forgetfulness noted. NEUROLOGIC: There are no gross
[2023-06-04] MEDS: ONDANSETRON INJ 4 MG/2 ML VIAL IV PUSH (15:12)
--- NOTE | 2023-06-04 15:22 | PC.NURSE ---
Returned from GI Lab. Report received from Dena BRISENO.
[2023-06-04] MEDS: THERAPEUTIC MULTIVITAMINS/MINERALS TAB (*BKC) 1 TABLET PO (16:36)
[2023-06-04] MEDS: MAGNESIUM OXIDE 200 MG TABLET PO (16:37)
--- NOTE | 2023-06-04 19:01 | PDONCCN ---
HPI - Date of Consult Date/Time: 06/04/23 19:01 Requesting Physician: Maureen Lux MD Primary Care Provider: Denia Kincaid MD - Consult Narrative Reason for consult: Colon mass Narrative: Loly Duncan is a 82 year old female with family history of colon cancer in the mother came into the hospital with lower abdominal pain off and on for more than 1 month duration along with some nausea. She has irregular bowel movement without tentative diarrhea and constipation without any melena hematochezia. She never had previous colonoscopy done. CT scan was performed that showed thickening of the ascending colon with shotty lymph node just superior to the lesion. There was at least partial small-bowel obstruction. No evidence of liver metastasis. CEA came back slightly elevated at 4.1. CT chest showed less than 4 mm pulmonary nodules likely oral granulomatous disease. Colonoscopy done on June 04 showed malignant appearing colonic mass at the cecum. Pathology is pending. Review of Systems - Review of Systems All systems reviewed & are unremarkable except as noted in [facility] and [facility] Medical History: Medical History (Last Reviewed 06/01/23 @ 20:30 by Dot Salomon APRN) Abnormal CT of the abdomen Combined hyperlipidemia Elevated platelet count Essential hypertension H/O vaginal delivery x4 No appetite Umbilical hernia without obstruction and without gangrene Vitamin D deficiency Weight loss, unintentional Surgical History: Surgical History (Last Reviewed 06/01/23 @ 20:30 by Dot Salomon APRN) H/O umbilical hernia repair Umbilical hernia repair with 6.6 cm Parietex underlay mesh S/P cholecystectomy Onset Date: ~1979 Family History: Family History (Last Updated 06/02/23 @ 12:50 by Boby East DO) Mother Family history of dementia Hypertension Carcinoma of colon Father Hypertension - Social History Social History: Social History (Last Updated 06/01/23 @ 20:31 by Dot Salomon APRN) Alcohol Use: Alcohol intake: current Alcohol use details: Occasional, at holidays. Substance Use: Substance use: never Substance use type: does not use Others: Spiritual care concerns: No Living Arrangements: Living arrangements: with family Oppucation/Education: Occupation/Education: retired Smoking Status: Smoking status: Never smoker Second hand tobacco smoke exposure: No Social Determinants of Health: Has the Lack of Transportation Kept You From Medical Appointments or From Getting Medications?: No Within the Past 12 Months, Were You Worried Whether Your Food Would Run Out Before You Got Money to Buy More?: Never True What is Your Housing Situation Today?: I Have Housing Are You Worried That in the Next 2 Months, You May Not Have Your Own Housing to Live In?: No Do You Have Trouble Paying Your Heating Or Electricity Bill?: No Do You Have Trouble Paying For Medicines?: No Are You Currently Unemployed and Looking for Work?: No Highest Level of Education Completed: High School Diploma/GED Do You Have Trouble With Childcare or the Care of a Family Member?: No Exam - Vital Signs Vital Signs - 24 hr 06/03/23 19:43 06/03/23 20:00 06/04/23 04:40 Temperature 36.4 C L 36.2 C L Pulse Rate 86 84 Respiratory Rate 18 18 Blood Pressure 120/77 112/68 Pulse Oximetry 95 100 Oxygen Delivery Room Air 06/04/23 12:41 06/04/23 14:16 06/04/23 14:26 Temperature 36.5 C Pulse Rate 78 69 64 Respiratory Rate 16 24 H 19 Blood Pressure 188/63 H 76/46 L 85/54 L Pulse Oximetry 99 98 98 Oxygen Delivery Room Air Room Air Room Air 06/04/23 14:36 06/04/23 14:56 06/04/23 11:46 Temperature Pulse Rate 66 65 78 Respiratory Rate 18 20 21 H Blood Pressure 99/61 L 113/52 L 87/59 L Pulse Oximetry 98 97 98 Oxygen Delivery Room Air Room Air Room Air - Exam HEENT: [place]
[2023-06-04] MEDS: OPTI-GEN TAB 1 TABLET PO (20:06)
[2023-06-04] MEDS: traZODone HCL 50 MG TABLET PO (20:06)
[2023-06-04] MEDS: ROSUVASTATIN 10 MG TABLET PO (20:06)
[2023-06-05] MEDS: LACTATED RINGERS 1,000 ML 125 ML IV CONT ×2 (04:30→13:04)
[2023-06-05 05:04] VITALS: BP 98/50; PULSE 87; RESP 20; TEMP 36.3; O2SAT 97
--- NOTE | 2023-06-05 06:06 | PC.NURSE ---
I reviewed the License Pending RN's documentation and agree with the findings.
--- NOTE | 2023-06-05 08:07 | WPDANESPN ---
Anes - Prog Note Post-Op Date/Time: 06/05/23 08:07 Cardiovascular status: normal Respiratory status: normal Airway patency: baseline Mental status: baseline Post-Op hydration status: normal Vital Signs: Last Vital Signs Temp 36.3 C L 06/05/23 05:04 Pulse 87 06/05/23 05:04 Resp 20 06/05/23 05:04 BP 98/50 L 06/05/23 05:04 Pulse Ox 97 06/05/23 05:04 O2 Del Method Room Air 06/04/23 20:00 Pain Score (VAS): 09/26 I/O: Intake & Output 06/04/23 06/05/23 06/05/23 23:59 07:59 15:59 Intake Total 1100 1240 Output Total 1 Balance 1100 1239 Laboratory Tests 06/03/23 04:58 06/03/23 04:58 Post-procedural complaints: none Patient Feedback: Patient satisfied with anesthetic care.
[2023-06-05] MEDS: THERAPEUTIC MULTIVITAMINS/MINERALS TAB (*BKC) 1 TABLET PO (08:23)
[2023-06-05] MEDS: PANTOPRAZOLE SODIUM IV 40 MG VIAL IV PUSH (08:23)
[2023-06-05] MEDS: MAGNESIUM OXIDE 200 MG TABLET PO (08:23)
--- NOTE | 2023-06-05 08:55 | P.CDI_ITS ---
CDI Query Clarification Request BMI 23.6 Nutritional Diagnostic Statement Severe malnutrition related to chronic nausea, vomiting, loss of appetite as evidenced by -26% weight loss/ 6 months; intakes < 50% needs > 1 month. Please refer to the comprehensive nutrition assessment for further information. Please clarify severity of protein calorie malnutrition if known: * Mild * Moderate * Severe * Other/Unspecified <Liza Hartley RN - Last Filed: 06/05/23 09:05> Clarified Diagnosis Clarified Diagnosis: Severe protein calorie malnutrition Severe malnutrition related to chronic nausea, vomiting, loss of appetite as evidenced by -26% weight loss/ 6 months; intakes < 50% needs > 1 month. <Edmund Garland APRN - Last Filed: 06/05/23 09:16>
--- NOTE | 2023-06-05 10:08 | PM.PNGS ---
Progress Note: A&P Assessment and Plan (1) Abnormal CT of the abdomen: Code(s): R93.5 - Abnormal findings on diagnostic imaging of other abdominal regions, including retroperitoneum Status: Acute Assessment and Plan: Colonoscopy shows a large malignant-appearing cecal mass. Biopsies pending. No evidence of distant metastatic disease on workup. Discussed options of proceeding with surgery during this hospitalization versus coming back as an outpatient. Patient did have some vomiting after the colonoscopy, but the mass did not appear to be completely obstructing. Patient wishes to proceed with surgery during this hospitalization. Discussed this with Dr. East and we will work on planning surgery depending on the surgery schedule. Continue clear liquids (2) Colonic mass: Code(s): K63.89 - Other specified diseases of intestine Status: Acute Assessment and Plan: Large malignant appearing mass on colonoscopy, biopsies pending (3) Weight loss, unintentional: Code(s): R63.4 - Abnormal weight loss Status: Acute (4) Essential hypertension: Code(s): I10 - Essential (primary) hypertension Status: Chronic Plan I have discussed the patient's case and plan of care with Dr. East. Subjective Subjective Date/Time Seen: 06/05/23 09:08 Patient reports: nausea and vomiting Interval history: Patient seen this morning. She had a colonoscopy yesterday and shortly after returning to her room from the colonoscopy, she had multiple episodes of vomiting. Through the night and this morning, she has not had any more nausea or vomiting. She has had some clear liquids this morning without vomiting. Does not have much of an appetite. No abdominal pain today. Patient does have some confusion in regards to events from yesterday, and defers answers to her daughter. Review of Systems Review of Systems: ROS unchanged Exam Const: General: No acute distress Orientation/consciousness: patient oriented x3 GI: Inspection: non-distended GI Palp: Yes Soft to palpation, No Tenderness to palpation present (GI), No Guarding due to palpation present (GI) and No Rebound tenderness present Auscultation: normal bowel sounds Objective Data Vital Signs Vital Signs: Vital Signs - 24 hr 06/04/23 12:41 06/04/23 14:16 06/04/23 14:26 Temperature 97.7 F Pulse Rate 78 69 64 Respiratory Rate 16 24 H 19 Blood Pressure 188/63 H 76/46 L 85/54 L Pulse Oximetry 99 98 98 Oxygen Delivery Room Air Room Air Room Air 06/04/23 14:36 06/04/23 14:56 06/04/23 11:46 Temperature Pulse Rate 66 65 78 Respiratory Rate 18 20 21 H Blood Pressure 99/61 L 113/52 L 87/59 L Pulse Oximetry 98 97 98 Oxygen Delivery Room Air Room Air Room Air 06/04/23 20:47 06/04/23 20:00 06/05/23 05:04 Temperature 98.4 F 97.3 F L Pulse Rate 101 H 87 Respiratory Rate 18 20 Blood Pressure 92/58 L 98/50 L Pulse Oximetry 99 97 Oxygen Delivery Room Air Intake/Output Intake/Output: Intake & Output 06/02/23 06/03/23 06/04/23 06/05/23 23:59 23:59 23:59 23:59 Intake Total 5100 2350 2420 1720 Output Total 600 1 Balance 5100 2350 1820 1719 Meds/Results Medications: Active Medications Generic Name Dose Route Start Last Admin Trade Name Hanyq PRN Reason Stop Dose Admin Acetaminophen 650 mg 06/01/23 20:56 06/04/23 06:48 Acetaminophen 325 Mg Tablet PO 650 mg Q4H PRN Administration Mild Pain (1-3) or Fever Lactated Ringer's 1,000 mls @ 125 mls/hr 06/01/23 15:25 06/05/23 04:32 Lr - Lactated Ringers Iv IV CONT Not Given .Q8H REGINO Lisinopril 20 mg 06/02/23 09:00 06/02/23 08:01 Lisinopril 20 Mg Tablet PO 20 mg QAM REGINO Administration Magnesium Oxide 200 mg 06/02/23 09:00 06/05/23 08:23 Magnesium Oxide 200 Mg Tablet PO 200 mg DAILY REGINO Administration Morphine Sulfate 2 mg 06/01/23 15:25 Morphine Sulfate (*Crx) 2 Mg/Ml Inj IV PUSH Q
--- NOTE | 2023-06-05 10:40 | PM.IMPN ---
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 Associated at least partial small bowel obstruction. Shotty lymph nodes just superior to the lesion, suspicious for small local metastatic lymph nodes. Patient has been evaluated by GI and General surgery. She will undergo colonoscopy in 2 days and be on a liquid diet until then. 06/03: bowel prep today and colonoscopy tomorrow. 06/04: colonoscopy reports malignant-appearing masses in the ascending colon and cecum, Oncology to be notified by GI and surgery already on the case 06/05: patient plans to stay for surgical intervention (2) Weight loss, unintentional: Code(s): R63.4 - Abnormal weight loss Status: Acute Assessment and Plan: 30 lb weight loss and no appetite recently with associated findings of concern for colonic mass. Full liquid diet with dietary supplements until after colonoscopy, clear liquid after colonoscopy (3) Nausea and vomiting: Code(s): R11.2 - Nausea with vomiting, unspecified Status: Acute Assessment and Plan: ER visit that led to admission was due to nausea and vomiting. Patient denies nausea at this time. She is tolerating full liquid diet. 06/04: One episode vomiting overnight, tolerated bowel prep (4) Essential hypertension: Code(s): I10 - Essential (primary) hypertension Status: Chronic Assessment and Plan: Blood pressures have been soft. Patient is on IV fluids 125 per hour. Will hold lisinopril/ HCTZ for now. 06/05: Blood pressure reviewed. Continue IV fluids and hold home antihypertensives. (5) No appetite: Code(s): R63.0 - Anorexia Status: Acute Assessment and Plan: See 1 and 2 Plan patient plans to stay for surgical mass removal, blood pressure borderline low. IV fluids continue and antihypertensives from home are on hold Time Spent With Patient Time with patient: 25 - 35 minutes Subjective Date/time seen: 06/05/23 10:40 Interval history: Discussion with surgery, patient now planning to stay for right hemicolectomy due to presumed adenocarcinoma mass of the cecum and ascending colon. On a clear liquid diet currently, schedule is being reviewed for available OR time. Patient denies any new or worsening symptoms Review of Systems Review of Systems: All systems reviewed & are unremarkable except as noted in HPI and below Exam Narrative: GENERAL: Generally well appearing, alert and oriented but mildly forgetful, in no apparent distress. She is pleasant and conversant in full sentences. HEENT: Pupils are equally round and briskly reactive to light. Extraocular muscles are intact. Oral mucous membranes are moist without lesions. NECK: The patient has no noted JVD. No adenopathy is appreciated. CHEST/LUNGS: Lungs are clear bilaterally without rhonchi, rales, or wheezes. There is no subcutaneous air appreciated. There is no tenderness to the chest wall. HEART: The patient has a regular rate and rhythm. No murmurs, rubs, or gallops are appreciated. Distal pulses are 2+. No carotid bruits appreciated. ABDOMEN: The patient's abdomen is soft, nontender, and nondistended. Bowel sounds are positive. No peritoneal signs. EXTREMITIES: The patient has no peripheral edema. There is no focal long bone tenderness or deformity. Scattered bruises to bilateral upper extremities from failed IV attempts. SKIN: The patient's skin is warm and dry, without rashes or lesions. PSYCHIATRIC: The patient has normal mental status and has an appropriate affect. Forgetfulness noted. NEUROLOGIC: There are no gross deficits to the cranial nerves. Patient ambulates with steady gait. Objective Data Vital Signs Vital Signs: Taylor
[2023-06-05] MEDS: ACETAMINOPHEN 325 MG TABLET 650 MG PO (12:24)
--- NOTE | 2023-06-05 13:39 | WPDGIPROGNO ---
Progress Note: A&P Assessment and Plan (1) Colon cancer: Code(s): C18.9 - Malignant neoplasm of colon, unspecified Status: Acute Assessment and Plan: diagnosed yesterday, reviewed biopsies surgery soon oncology on board (2) Nausea and vomiting: Code(s): R11.2 - Nausea with vomiting, unspecified Status: Acute Assessment and Plan: resolved, tolerating liquid diet (3) Weight loss, unintentional: Code(s): R63.4 - Abnormal weight loss Status: Acute Subjective Date/time seen: 06/05/23 13:39 Interval history: colonoscopy found mass in right colon she denies any more nausea and tolerating liquid diet Review of Systems Review of Systems: All systems reviewed & are unremarkable except as noted in HPI and below Exam Const: General: comfortable and no acute distress HENMT: Face/Nose/Sinus: Normal nares present Eyes: General: appearance normal, both eyes and all related structures Neck: Neck: no JVD Resp: Auscultation: clear to auscultation bilaterally Cardio: Rate: regular rate Rhythm: regular rhythm GI: Inspection: non-distended GI Palp: Yes Soft to palpation and No Guarding due to palpation present (GI) Auscultation: normal bowel sounds Skin: General skin exam: normal color Neuro: Speech: normal speech Motor exam (neuro): 5/5 motor strength present throughout Extrem: General: normal to inspection Psych: Mental Status: mental status grossly normal Objective Data Vital Signs Vital Signs: Vital Signs - 24 hr 06/04/23 14:16 06/04/23 14:26 06/04/23 14:36 Temperature Pulse Rate 69 64 66 Respiratory Rate 24 H 19 18 Blood Pressure 76/46 L 85/54 L 99/61 L Pulse Oximetry 98 98 98 Oxygen Delivery Room Air Room Air Room Air 06/04/23 14:56 06/04/23 20:47 06/04/23 20:00 Temperature 98.4 F Pulse Rate 65 101 H Respiratory Rate 20 18 Blood Pressure 113/52 L 92/58 L Pulse Oximetry 97 99 Oxygen Delivery Room Air Room Air 06/05/23 05:04 06/05/23 08:25 Temperature 97.3 F L Pulse Rate 87 Respiratory Rate 20 Blood Pressure 98/50 L Pulse Oximetry 97 Oxygen Delivery Room Air Intake/Output Intake/Output: Intake & Output 09/16/23 06/03/23 06/04/23 06/05/23 23:59 23:59 23:59 23:59 Intake Total 5100 2350 2420 2480 Output Total 600 1 Balance 5100 2350 1820 2479 Meds/Results Medications: Active Medications Generic Name Dose Route Start Last Admin Trade Name Freq PRN Reason Stop Dose Admin Acetaminophen 650 mg 06/01/23 20:56 06/05/23 12:24 Acetaminophen 325 Mg Tablet PO 650 mg Q4H PRN Administration Mild Pain (1-3) or Fever Lactated Ringer's 1,000 mls @ 125 mls/hr 06/01/23 15:25 06/05/23 13:04 Lr - Lactated Ringers Iv IV CONT 125 mls/hr .Q8H REGINO Administration Magnesium Oxide 200 mg 06/02/23 09:00 06/05/23 08:23 Magnesium Oxide 200 Mg Tablet PO 200 mg DAILY REGINO Administration Morphine Sulfate 2 mg 06/01/23 15:25 Morphine Sulfate (*Crx) 2 Mg/Ml Inj IV PUSH Q2H PRN Pain Rated 7-10 Multivitamins/Calcium 1 tablet 06/02/23 09:00 06/05/23 08:23 Therapeutic Multivitamins/Minerals Tab (*Bkc) PO 1 tablet DAILY REGINO Administration Multivitamins/Minerals 1 tablet 06/01/23 21:00 06/04/23 20:06 Opti-Gen Tab PO 1 tablet HS REGINO Administration Ondansetron HCl 4 mg 06/01/23 15:25 06/04/23 15:12 Ondansetron Inj 4 Mg/2 Ml Vial IV PUSH 4 mg Q4H PRN Administration Nausea Pantoprazole Sodium 40 mg 06/01/23 15:30 06/05/23 08:23 Pantoprazole Sodium Iv 40 Mg Vial IV PUSH 40 mg QAM REGINO Administration Rosuvastatin Calcium 10 mg 06/01/23 21:00 06/04/23 20:06 Rosuvastatin 10 Mg Tablet PO 10 mg HS REGINO Administration Trazodone HCl 50 mg 06/02/23 21:00 06/04/23 20:06 Trazodone Hcl 50 Mg Tablet PO 50 mg HS REGINO Administration Radiology Results: ITS Impressions Abdomen/Pelvis CT 06/01/23 14:40 Impression:
[2023-06-05 14:00] VITALS: BP 98/52; PULSE 74; RESP 20; TEMP 36.6; O2SAT 100
--- NOTE | 2023-06-05 19:52 | PC.NURSE ---
ADDED DAUGHTER ALEX TO CONTACT LIST [phone]
[2023-06-05 20:27] VITALS: BP 107/59; PULSE 73; RESP 18; TEMP 36.3; O2SAT 100
[2023-06-05] MEDS: traZODone HCL 50 MG TABLET PO (20:28)
[2023-06-05] MEDS: ROSUVASTATIN 10 MG TABLET PO (20:28)
[2023-06-05] MEDS: OPTI-GEN TAB 1 TABLET PO (20:28)
[2023-06-05] MEDS: LACTATED RINGERS 1,000 ML 75 ML IV CONT (20:31)
[2023-06-06 05:23] VITALS: BP 114/48; PULSE 83; RESP 18; TEMP 36.8; O2SAT 99
--- NOTE | 2023-06-06 08:09 | PM.IMPN ---
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 Associated at least partial small bowel obstruction. Shotty lymph nodes just superior to the lesion, suspicious for small local metastatic lymph nodes. Patient has been evaluated by GI and General surgery. She will undergo colonoscopy in 2 days and be on a liquid diet until then. 06/03: bowel prep today and colonoscopy tomorrow. 06/04: colonoscopy reports malignant-appearing masses in the ascending colon and cecum, Oncology to be notified by GI and surgery already on the case 06/05: patient plans to stay for surgical intervention (2) Weight loss, unintentional: Code(s): R63.4 - Abnormal weight loss Status: Acute Assessment and Plan: 30 lb weight loss and no appetite recently with associated findings of concern for colonic mass. Full liquid diet with dietary supplements until after colonoscopy, clear liquid after colonoscopy (3) Nausea and vomiting: Code(s): R11.2 - Nausea with vomiting, unspecified Status: Acute Assessment and Plan: ER visit that led to admission was due to nausea and vomiting. Patient denies nausea at this time. She is tolerating full liquid diet. (4) Essential hypertension: Code(s): I10 - Essential (primary) hypertension Status: Chronic Assessment and Plan: Blood pressures have been soft. Will hold lisinopril/ HCTZ for now. Blood pressure reviewed. Plan Right hemicolectomy with Dr Booth scheduled 06/07 at 0900 Subjective Date/time seen: 06/06/23 08:09 Interval history: HPI obtained from the chart, 82 y/o F presents here with persistent nausea with occasional vomiting with PMH of HTN, HLD, and Vitamin D Deficiency. Patient reports she has been persistently nauseous for greater than 1 month, but less than 3 months - unclear start time.? Describes poor appetite, nausea with eating, and occasional emesis.? Has only been able to tolerate very small meals and has on average can keep most down. However, she reported to the GI architecture consultant that her PO intake has worsened in the last week. No report of this during my history. No blood in vomit. No dark tarry stools. Reports bowel movements have been normal in consistency, last bowel movement this morning. +Fatigue, +Weakness.? Per chart review, patient weighed 73 kgs in November of this year, currently weighs 55 kgs. No complaints at wellness visit on 12/12/22. Patient then saw primary on 04/27/23,? at that visit she reported that for the previous 3-4 months she has been having pain in her stomach, poor appetite, and unintentional weight loss. ? CT scan was ordered of patient's abdomen at this visit, CT showed? a partially visualized wall thickening of the ascending colon, suspicious for primary malignancy. No previous colonoscopy. Referred to Oncology ([facility]) and GI. Patient has GI appointment yesterday which was cancelled. Interval history: 06/06: Patient is seen today at bedside with her . She is anticipating surgery tomorrow. She denies pain, n/v at this time. No complaints currently. Plan for OR tomorrow at 0900. Review of Systems Review of Systems: All systems reviewed & are unremarkable except as noted in HPI and below Exam Narrative: General: well appearing, well developed, well nourished, appears stated age. HEENT: normocephalic, atraumatic. Mucous membranes moist. EOMI, PERRLA, bilateral sclera anicteric, no conjunctival injection. Neck supple without JVD, lymphadenopathy, or bruit. Respiratory: clear to auscultation bilaterally. No rales/rhonic/wheezes. Cardiovascular: Regular rate and rhythm, normal S1-S2 upon auscultation. No murmurs, rubs, or clicks. PMI is nondisplace
[2023-06-06 08:31] LABS: Basophils Percent Auto 0.4 % (0.2-1.2); Eosinophils Absolute Auto 0.1 K/mm3 (0-0.3); Eosinophils Percent Auto 1.6 % (0-4.4); Hematocrit 32.4 % (37.0-47.0); Hemoglobin 10.4 g/dL (12.0-15.0); Immature Granulocyte Absolute 0.04 K/mm3 (0.00-0.031); Immature Granulocyte Percent A 0.5 % (0-0.5); Lymphocytes Absolute Auto 1.44 K/mm3 (0.9-3.2); Lymphocytes Percent Auto 19.5 % (18.3-44.2); Mean Corpuscular HGB Conc 32.1 g/dl (32-36); Mean Corpuscular Hemoglobin 29.4 pg (26-34); Mean Corpuscular Volume 91.5 fl (80-100); Mean Platelet Volume 9.9 fl (7.4-10.4); Monocytes Absolute Auto 0.6 K/mm3 (0.1-0.6); Monocytes Percent Auto 7.4 % (2.6-8.5); Neutrophils Absolute Auto 5.2 K/mm3 (1.3-6.7); Neutrophils Percent Auto 70.6 % (45.5-73.1); Platelet Count Result 254 k/mm3 (150-375); Red Blood Count 3.54 M/mm3 (4.2-5.4); Red Cell Distribution Width 16.9 % (11.5-14.5); White Blood Count 7.4 K/mm3 (4.5-10.0)
[2023-06-06] MEDS: PANTOPRAZOLE SODIUM IV 40 MG VIAL IV PUSH (08:34)
[2023-06-06] MEDS: MAGNESIUM OXIDE 200 MG TABLET PO (08:34)
[2023-06-06] MEDS: THERAPEUTIC MULTIVITAMINS/MINERALS TAB (*BKC) 1 TABLET PO (08:34)
[2023-06-06 08:53] LABS: Alanine Aminotransferase 20 U/L (6-35); Albumin Level 2.8 g/dL (3.5-5.1); Alkaline Phosphatase 71 U/L (38-126); Anion Gap 2 mmol/L (8-16); Aspartate Amino Transferase 28 U/L (14-36); Bilirubin,Total 0.4 mg/dL (0.2-1.3); Blood Urea Nitrogen 14 mg/dL (7-17); Calcium 8.4 mg/dL (8.4-10.2); Carbon Dioxide 28 mmol/L (22-30); Chloride 105 mmol/L (98-107); Estimated CRCL calculation 36 ml/min; Estimated Glomerular Filt Rate > 60; Glucose 96 mg/dL (65-110); Magnesium 2.4 mg/dL (1.6-2.3); Potassium 3.5 mmol/L (3.4-5.0); Sodium 135 mmol/L (137-145)
[2023-06-06] MEDS: LACTATED RINGERS 1,000 ML 75 ML IV CONT (10:04)
[2023-06-06 14:00] VITALS: BP 129/74; PULSE 77; RESP 18; TEMP 36.6; O2SAT 99
--- NOTE | 2023-06-06 14:08 | PM.PNGS ---
Progress Note: A&P Assessment and Plan (1) Colonic mass: Code(s): K63.89 - Other specified diseases of intestine Status: Acute Assessment and Plan: Large malignant appearing cecal mass on colonoscopy. No evidence of distant metastatic disease on workup. Plan to proceed with robotic assisted right hemicolectomy tomorrow by Dr. East Continue clear liquids today and prepare for surgery (2) Weight loss, unintentional: Code(s): R63.4 - Abnormal weight loss Status: Acute (3) Essential hypertension: Code(s): I10 - Essential (primary) hypertension Status: Chronic Plan I have discussed the patient's case and plan of care with Dr. East. Subjective Subjective Date/Time Seen: 06/06/23 09:08 Patient reports: no new complaints, tolerating liquids well, flatus, bowel movement and afebrile Interval history: Patient doing well today. No more nausea or vomiting. Denies any abdominal pain. Tolerating clear liquids. No acute events overnight. Exam Const: General: alert; No acute distress Orientation/consciousness: patient oriented x3 GI: Inspection: non-distended GI Palp: Yes Soft to palpation, No Tenderness to palpation present (GI) and No Guarding due to palpation present (GI) Auscultation: normal bowel sounds Objective Data Vital Signs Vital Signs: Vital Signs - 24 hr 06/05/23 20:27 06/05/23 20:00 06/06/23 05:23 Temperature 97.4 F L 98.3 F Pulse Rate 73 83 Respiratory Rate 18 18 Blood Pressure 107/59 L 114/48 L Pulse Oximetry 100 99 Oxygen Delivery Room Air 06/06/23 08:30 Temperature Pulse Rate Respiratory Rate Blood Pressure Pulse Oximetry Oxygen Delivery Room Air Intake/Output Intake/Output: Intake & Output 06/03/23 06/04/23 06/05/23 06/06/23 23:59 23:59 23:59 23:59 Intake Total 2350 2420 3720 1902 Output Total 600 2 Balance 2350 1820 3718 1902 Meds/Results Medications: Active Medications Generic Name Dose Route Start Last Admin Trade Name Freq PRN Reason Stop Dose Admin Acetaminophen 650 mg 06/01/23 20:56 06/05/23 12:24 Acetaminophen 325 Mg Tablet PO 650 mg Q4H PRN Administration Mild Pain (1-3) or Fever Erythromycin 1,000 mg 06/06/23 20:00 Erythromycin 250 Mg Tablet PO 06/07/23 00:01 DAILY@0000,1999,2099 [facility] Magnesium Oxide 200 mg 06/02/23 09:00 06/06/23 08:34 Magnesium Oxide 200 Mg Tablet PO 200 mg DAILY REGINO Administration Morphine Sulfate 2 mg 06/01/23 15:25 Morphine Sulfate (*Crx) 2 Mg/Ml Inj IV PUSH Q2H PRN Pain Rated 7-10 Multivitamins/Calcium 1 tablet 06/02/23 09:00 06/06/23 08:34 Therapeutic Multivitamins/Minerals Tab (*Bkc) PO 1 tablet DAILY REGINO Administration Multivitamins/Minerals 1 tablet 06/01/23 21:00 06/05/23 20:28 Opti-Gen Tab PO 1 tablet HS REGINO Administration Neomycin Sulfate 1,000 mg 06/06/23 20:00 Neomycin Sulfate 500 Mg Tab PO 06/07/23 00:01 DAILY@0000,1999,2099 [facility] Ondansetron HCl 4 mg 06/01/23 15:25 06/04/23 15:12 Ondansetron Inj 4 Mg/2 Ml Vial IV PUSH 4 mg Q4H PRN Administration Nausea Pantoprazole Sodium 40 mg 06/01/23 15:30 06/06/23 08:34 Pantoprazole Sodium Iv 40 Mg Vial IV PUSH 40 mg QAM REGINO Administration Rosuvastatin Calcium 10 mg 06/01/23 21:00 06/05/23 20:28 Rosuvastatin 10 Mg Tablet PO 10 mg HS REGINO Administration Trazodone HCl 50 mg 06/02/23 21:00 06/05/23 20:28 Trazodone Hcl 50 Mg Tablet PO 50 mg HS REGINO Administration Radiology Results: ITS Impressions Abdomen/Pelvis CT 06/01/23 14:40 Impression: Masslike wall thickening which appears to be at the cecum/ileocecal valve region, suspicious for adenocarcinoma, most likely of colonic origin. Associated at least partial small bowel obstruction. Shotty lymph nodes just superior to the lesion, suspicious for small local metastatic lymph nodes. Chest CT 06/03/23 16:42 IMPRESSI
[2023-06-06] MEDS: NEOMYCIN SULFATE 500 MG TAB 1000 MG PO ×2 (20:06→21:02)
[2023-06-06] MEDS: ERYTHROMYCIN 250 MG TABLET 1000 MG PO ×2 (20:06→21:03)
[2023-06-06] MEDS: traZODone HCL 50 MG TABLET PO (20:07)
[2023-06-06] MEDS: OPTI-GEN TAB 1 TABLET PO (20:07)
[2023-06-06] MEDS: ROSUVASTATIN 10 MG TABLET PO (20:07)
[2023-06-06 20:16] VITALS: BP 122/84; PULSE 91; RESP 17; TEMP 36.7; O2SAT 99
[2023-06-07] VITALS (12 sets, daily range): BP systolic 96–131; BP diastolic 53–74; PULSE 75–92; RESP 14–17; TEMP 36.4–36.8; O2SAT 96–100
[2023-06-07] MEDS: NEOMYCIN SULFATE 500 MG TAB 1000 MG PO (00:17)
[2023-06-07] MEDS: ERYTHROMYCIN 250 MG TABLET 1000 MG PO (00:17)
[2023-06-07] MEDS: LACTATED RINGERS 1,000 ML 75 ML IV CONT (00:19)
--- NOTE | 2023-06-07 06:06 | ECG_ITS ---
Measurements Intervals [place] Rate: 83 P: 47 UT: 136 QRS: -37 QRSD: 88 T: 75 QT: 376 QTc: 443 Interpretive Statements SINUS RHYTHM LEFT AXIS DEVIATION LOW QRS VOLTAGE IN PRECORDIAL LEADS BORDERLINE R WAVE PROGRESSION, ANTERIOR LEADS INFERIOR INFARCT, AGE INDETERMINATE BORDERLINE ST-T WAVE ABNORMALITY- HIGH LATERAL LEADS ABNORMAL ECG NO PREVIOUS ECG AVAILABLE FOR COMPARISON Electronically Signed On 06-07-2023 6:43:54 CDT by Todd Fang D.O.
[2023-06-07] MEDS: ONDANSETRON INJ 4 MG/2 ML VIAL IV PUSH (06:12)
--- NOTE | 2023-06-07 06:27 | PC.NURSE ---
Kwasi RN in pre-op aware that patient had about a 300ml emesis around midnight and 400mls this AM around 0600. He will let Cassandra RN her nurse for today in pre-op know and will make a note on the chart to notify anesthesia. Aware we did notify Dr. Nobles and no new orders at this time.
--- NOTE | 2023-06-07 06:38 | PC.NURSE ---
On 06/06/23-06/07/2023, the RN license pending, Ramon Alejo, provided care and completed [facility] documentation on this patient. I have reviewed the RN's documentation and agree with the findings.
[2023-06-07 06:45] LABS: Basophils Percent Auto 0.4 % (0.2-1.2); Eosinophils Absolute Auto 0.1 K/mm3 (0-0.3); Eosinophils Percent Auto 0.9 % (0-4.4); Hematocrit 33.4 % (37.0-47.0); Hemoglobin 10.9 g/dL (12.0-15.0); Immature Granulocyte Absolute 0.03 K/mm3 (0.00-0.031); Immature Granulocyte Percent A 0.4 % (0-0.5); Lymphocytes Absolute Auto 1.31 K/mm3 (0.9-3.2); Lymphocytes Percent Auto 16.1 % (18.3-44.2); Mean Corpuscular HGB Conc 32.6 g/dl (32-36); Mean Corpuscular Hemoglobin 29.2 pg (26-34); Mean Corpuscular Volume 89.5 fl (80-100); Mean Platelet Volume 10.1 fl (7.4-10.4); Monocytes Absolute Auto 0.6 K/mm3 (0.1-0.6); Monocytes Percent Auto 7.7 % (2.6-8.5); Neutrophils Absolute Auto 6.1 K/mm3 (1.3-6.7); Neutrophils Percent Auto 74.5 % (45.5-73.1); Platelet Count Result 311 k/mm3 (150-375); Red Blood Count 3.73 M/mm3 (4.2-5.4); Red Cell Distribution Width 16.4 % (11.5-14.5); White Blood Count 8.1 K/mm3 (4.5-10.0)
[2023-06-07 06:52] LABS: INR 1.2; Prothrombin Time 15.6 Seconds (11.1-14.7)
[2023-06-07 06:53] LABS: Partial Thromboplastin Time 31.5 SECONDS (22.3-36.8)
[2023-06-07 06:54] LABS: Alanine Aminotransferase 38 U/L (6-35); Albumin Level 2.8 g/dL (3.5-5.1); Alkaline Phosphatase 74 U/L (38-126); Anion Gap 3 mmol/L (8-16); Aspartate Amino Transferase 70 U/L (14-36); Bilirubin,Total 0.5 mg/dL (0.2-1.3); Blood Urea Nitrogen 11 mg/dL (7-17); Calcium 8.4 mg/dL (8.4-10.2); Carbon Dioxide 27 mmol/L (22-30); Chloride 106 mmol/L (98-107); Estimated CRCL calculation 40 ml/min; Estimated Glomerular Filt Rate > 60; Glucose 102 mg/dL (65-110); Magnesium 2.3 mg/dL (1.6-2.3); Phosphorus 3.6 mg/dL (2.5-4.5); Potassium 3.4 mmol/L (3.4-5.0); Sodium 136 mmol/L (137-145)
--- NOTE | 2023-06-07 07:30 | PC.NURSE ---
To OR per bed, IV right arm. Report given to Cassandra BRISENO.
--- NOTE | 2023-06-07 07:41 | PM.IMPN ---
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 Associated at least partial small bowel obstruction. Shotty lymph nodes just superior to the lesion, suspicious for small local metastatic lymph nodes. Patient has been evaluated by GI and General surgery. She will undergo colonoscopy in 2 days and be on a liquid diet until then. 06/03: bowel prep today and colonoscopy tomorrow. 06/04: colonoscopy reports malignant-appearing masses in the ascending colon and cecum, Oncology to be notified by GI and surgery already on the case 06/05: patient plans to stay for surgical intervention POD 0 for laparoscopic right hemicolectomy Clear liquid diet tonight with ensures DVT prophylaxis per surgery, currently SCD and lovenox Activity up to the chair as tolerated Incentive spirometry. Pain control with scheduled Tylenol, prn oxycodone 2.5-5mg Q 4 hours, with morphine 2-4 mg for breakthrough for pain. (2) Essential hypertension: Code(s): I10 - Essential (primary) hypertension Status: Chronic Assessment and Plan: Blood pressures have been soft. Will hold lisinopril/ HCTZ for now. Blood pressure reviewed. Plan POD [address]omy with Dr Booth Subjective Date/time seen: 06/07/23 07:41 Interval history: HPI obtained from the chart, 82 y/o F presents here with persistent nausea with occasional vomiting with PMH of HTN, HLD, and Vitamin D Deficiency. Patient reports she has been persistently nauseous for greater than 1 month, but less than 3 months - unclear start time.? Describes poor appetite, nausea with eating, and occasional emesis.? Has only been able to tolerate very small meals and has on average can keep most down. However, she reported to the GI wound care center consultant that her PO intake has worsened in the last week. No report of this during my history. No blood in vomit. No dark tarry stools. Reports bowel movements have been normal in consistency, last bowel movement this morning. +Fatigue, +Weakness.? Per chart review, patient weighed 73 kgs in November of this year, currently weighs 55 kgs. No complaints at wellness visit on 12/12/22. Patient then saw primary on 04/27/23,? at that visit she reported that for the previous 3-4 months she has been having pain in her stomach, poor appetite, and unintentional weight loss. ? CT scan was ordered of patient's abdomen at this visit, CT showed? a partially visualized wall thickening of the ascending colon, suspicious for primary malignancy. No previous colonoscopy. Referred to Oncology (Dionic[facility]) and GI. Patient has GI appointment yesterday which was cancelled. Interval history: 06/06: Patient is seen today at bedside with her . She is anticipating surgery tomorrow. She denies pain, n/v at this time. No complaints currently. Plan for OR tomorrow at 0900. 06/07: To OR with Dr Booth for laparoscopic right hemicolectomy with ileocolic anastomosis. Review of Systems Review of Systems: All systems reviewed & are unremarkable except as noted in HPI and below Exam Narrative: General: well appearing, well developed, well nourished, appears stated age. HEENT: normocephalic, atraumatic. Mucous membranes moist. EOMI, PERRLA, bilateral sclera anicteric, no conjunctival injection. Neck supple without JVD, lymphadenopathy, or bruit. Respiratory: clear to auscultation bilaterally. No rales/rhonic/wheezes. Cardiovascular: Regular rate and rhythm, normal S1-S2 upon auscultation. No murmurs, rubs, or clicks. PMI is nondisplaced, capillary re-fill less than 3 second. Abdomen: Soft, flat, no pulsatile masses, non-distended and non-tender. No rebound, no guarding. No CVA tenderness, no hepatosplenomegaly. Bowel sounds pres
[2023-06-07] MEDS: LACTATED RINGERS 1,000 ML 30 ML IV CONT ×2 (08:00→13:23)
[2023-06-07] MEDS: ACETAMINOPHEN 500 MG TABLET 1000 MG PO ×2 (08:00→18:49)
[2023-06-07] MEDS: KETOROLAC 15 MG/ML VIAL (*BKC) IV PUSH (08:18)
--- NOTE | 2023-06-07 09:04 | WPDANESEPPF ---
Anes - Initial Pre Proc Eval Procedure: Operation Date: 06/04/23 14:15 Proposed Procedures p Screening Colonoscopy - Demetris Smith MD Operation Date: 06/07/23 09:00 Proposed Procedures p Robotic Assisted Right Hemicolectomy - Boby East DO Date/Time: 06/07/23 09:04 Surgeon: Maureen Lux MD Pre Op Diagnosis: Partial Small Bowel Obstruction Patient Data Age: 82 Gender: F Height: 1.55 m Weight: 56.6 kg Last Vital Signs Temp 36.7 C 06/07/23 08:14 Pulse 76 06/07/23 08:14 Resp 16 06/07/23 08:14 BP 113/74 06/07/23 08:14 Pulse Ox 96 06/07/23 08:14 O2 Del Method Room Air 06/07/23 08:14 Allergies Allergy/AdvReac Type Severity Reaction Status Date / Time No Known Allergies Allergy Verified 06/07/23 08:09 Home Medications Medication Instructions Recorded Confirmed Type magnesium 200 mg tablet 200 mg PO DAILY 12/01/20 06/01/23 History cholecalciferol (vitamin D3) 1,250 1,250 mcg PO DAILY 05/03/21 06/01/23 History mcg (50,000 unit) capsule [id number] fumarate 18 1 tab-cap PO DAILY 05/12/21 06/01/23 History mg-FA 600 mcg-vit K 40 mcg capsule (Multi For Her) vit A 300 mcg-C 200 mg-E 27 1 tablet PO HS 06/03/21 06/01/23 History mg-lutein 2 mg and minerals tablet (Healthy Eyes) lisinopril 20 1 tablet PO DAILY #30 tabs 01/29/23 06/01/23 Rx mg-hydrochlorothiazide 12.5 mg tablet rosuvastatin 10 mg tablet 10 mg PO HS #30 tabs 01/29/23 06/01/23 Rx Sleep Aid (diphenhydramine) 25 mg PO HS PRN Sleep 06/01/23 06/01/23 History Laboratory Tests 06/07/23 05:53 WBC 8.1 K/mm3 (4.5-10.0) RBC 3.73 L M/mm3 (4.2-5.4) Hgb 10.9 L g/dL (12.0-15.0) Hct 33.4 L % (37.0-47.0) MCV 89.5 fl (80-100) MCH 29.2 pg (26-34) MCHC 32.6 g/dl (32-36) RDW 16.4 H % (11.5-14.5) Plt Count 311 k/mm3 (150-375) MPV 10.1 fl (7.4-10.4) Immature Gran % (Auto) 0.4 % (0-0.5) Neut % (Auto) 74.5 H % (45.5-73.1) Lymph % (Auto) 16.1 L % (18.3-44.2) [place] % (Auto) 7.7 % (2.6-8.5) Eos % (Auto) 0.9 % (0-4.4) Baso % (Auto) 0.4 % (0.2-1.2) Lymph # (Auto) 1.31 K/mm3 (0.9-3.2) [place] # (Auto) 0.6 K/mm3 (0.1-0.6) Eos # (Auto) 0.1 K/mm3 (0-0.3) Baso # (Auto) 0.0 K/mm3 (0.0-0.1) Abs Immat Gran (auto) 0.03 K/mm3 (0.00-0.031) Absolute Neuts (auto) 6.1 K/mm3 (1.3-6.7) Absolute Nucleated RBC 0.0 K/mm3 (0.0-0.012) Nucleated RBC % 0.0 % (0.0-0.2) PT 15.6 H Seconds (11.1-14.7) INR 1.2 APTT 31.5 SECONDS (22.3-36.8) Sodium 136 L mmol/L (137-145) Potassium 3.4 mmol/L (3.4-5.0) Chloride 106 mmol/L (98-107) Carbon Dioxide 27 mmol/L (22-30) Anion Gap 3 L mmol/L (8-16) BUN 11 mg/dL (7-17) Creatinine 0.70 mg/dL (0.7-1.0) Estim Creat Clear Calc 40 ml/min Estimated GFR > 60 (59 - ) Glucose 102 mg/dL (65-110) Calcium 8.4 mg/dL (8.4-10.2) Phosphorus 3.6 mg/dL (2.5-4.5) Magnesium 2.3 mg/dL (1.6-2.3) Total Bilirubin 0.5 mg/dL (0.2-1.3) AST 70 H U/L (14-36) ALT 38 H U/L (6-35) Alkaline Phosphatase 74 U/L (38-126) Total Protein 6.0 L g/dL (6.3-8.2) Albumin 2.8 L g/dL (3.5-5.1) Blood Type A Positive Antibody Screen Negative Patient hx anesthesia problems: none Family hx anesthesia problems: none Results Review: All pre-operative results and documents have been reviewed as part of the pre-operative evaluation. [facility] Past Medical History Medical History Abnormal CT of the abdomen Colon cancer Combined hyperlipidemia Elevated platelet count Essential hypertension H/O vaginal delivery x4 No appetite Umbilical hernia without obstruction and without gangrene Vitamin D deficiency Weight loss, unintentional Surgical History Surgical History (Reviewed
--- NOTE | 2023-06-07 09:35 | WPDHPUPDATE1 ---
History and Physical Update Update Date/Time: 06/07/23 09:35 History and Physical has been reviewed, including an updated exam of the patient. There are NO changes in the patient's condition. Risks, benefits, and alternatives have been discussed and questions answered. Patient agrees to proceed with procedure.
[2023-06-07] MEDS: ceFAZolin 2 GM/D5W 50 ML 2 GM/50 ML BAG IVPB (10:08)
[2023-06-07] MEDS: metroNIDAZOLE 500 MG/ISO 100ML 500 MG/100 ML BAG 100 MG IVPB (10:25)
[2023-06-07] MEDS: BUPIVACAINE/EPINEPHRINE 0.5% 50 ML VIAL 30 ML INFILTRATE (11:02)
--- NOTE | 2023-06-07 11:24 | PCNFU ---
Nutrition Follow-Up Complete: Severe malnutrition related to chronic nausea, vomiting, loss of appetite as evidenced by -26% weight loss/6 months; intakes <50% needs >1 month. goal: Diet advancement Patient has limited progress towards goal. We will continue current goal. Pt current nutrition is NPO. Nutrition recommendation: advance diet as tolerated per MD orders Last recorded weight is 56.6 kg, up from 55 kg on admit . Bowel Motility:+Bm reported 06/05 Labs Reviewed:Na 136, Hct 33.4,Hgb 10.9 Meds Noted:Protonix, MVI, Crestor, Mag ox,LR Skin: WNL Additional Notes: Patient NPO for right hemicolectomy today. Recommending diet advancement as tolerated per MD orders with diet supplements on trays. Agree with diet orders at this time. Monitor diet order, plan of care, weights, labs Follow up in 5 days
[2023-06-07] MEDS: INDOCYANINE GREEN 25 MG VIAL WITH DILUENT 7.5 MG IV PUSH (12:13)
--- NOTE | 2023-06-07 13:30 | W.PM.PROC2 ---
Procedure Note - Detailed Date of Procedure 06/07/23 Pre-op Diagnosis Cecal mass, partial bowel obstruction Post-op Diagnosis Same Procedure Performed Laparoscopic right hemicolectomy with ileocolic anastomosis, da Sterling assisted Surgeon Boby East, DO Anesthesia General and Local (0.5% bupivacaine with epinephrine) Indications This is an 82-year-old woman who presented to the hospital with fatigue and weight loss. She was worked up in the emergency department and CT showed evidence of a mass in her cecum and ascending colon causing at least a partial small bowel obstruction. She was moving her bowels and was able to tolerate a bowel prep. She underwent colonoscopy on 06/04/2023 which showed evidence of a malignant-appearing mass in her cecum. Biopsies were concerning for adenocarcinoma. She had no evidence of distant metastases, therefore surgical resection was discussed. Decision was made to proceed with robotic assisted laparoscopic right hemicolectomy. Findings Laparoscopic right hemicolectomy was performed. The patient was found to have some slightly dilated small bowel. The mass was identified at the cecum. There were a couple slightly enlarged lymph nodes identified along the mesocolon but no other significant abnormalities seen. A high ligation of the ileocolic pedicle was performed. Right hemicolectomy was performed with a atlm-[id number] isoperistaltic stapled anastomosis. Indocyanine green was used to confirm adequate perfusion to the proximal and distal points of resection. Description of Procedure Procedure as well as risks, benefits, and alternatives were discussed with the patient.? Written consent was obtained and placed in chart prior to procedure.? Patient was brought back to surgical suite.? She was placed supine on operating table.? Time-out was done to confirm patient and procedure.? She was then intubated by the anesthesia department.? Her abdomen was prepped and draped in sterile fashion using chlorhexidine prep.? An 8 mm incision was made in the left upper quadrant and a 5 mm Optiview trocar was advanced through the abdominal layers under direct visualization.? Once inside the abdominal cavity, carbon dioxide insufflation was used to create a pneumoperitoneum.? Camera was inserted in the abdomen was inspected.? The patient was placed in 5 degree Trendelenburg and 10? rotated left. An 8 mm incision was made in the suprapubic region in midline and an 8 mm trocar was inserted under direct visualization another 8 mm incision was made in the umbilical region just inferior into the left of the umbilicus and an 8 mm trocar was inserted under direct visualization.? A 12 mm incision was made in the left lateral abdomen and a 12 mm trocar was inserted under direct visualization.? An 8 mm incision was made in the left lower quadrant and an 8 mm assist port was placed under direct visualization.? The 5 mm port was then removed and exchanged for an 8 mm port.? The robotic arms were then brought up to the patient's bedside and secured to the ports.? The camera and instruments were then inserted.? I then moved over to the robotic console and took control of the camera and instruments.? Thorough inspection was made around the abdominal cavity.? The omentum was then reflected cephalad over the transverse colon.? The area near the ileocecal valve was grasped and retracted anterior and laterally to tent up the ileocolic pedicle.? Scissors with electrocautery were then used to perform the medial to lateral dissection.? I entered into the avascular plane just inferior to the ileocolic pedicle and carefully dissected cephalad to identify the duodenum.? Once the duodenum was identified and then continued sweeping the retroperitoneal structures posteriorly and then isolated the ileocolic pedicle.? A high ligation of the ileocolic vessels was then performed using the vessel sealer.? Hemostasis appeared adequate.? The medial to lateral dissection was then continued
--- NOTE | 2023-06-07 14:40 | PC.NURSE ---
Returned from OR per bed. Report received from Melisa BRISENO.
[2023-06-07] MEDS: oxyCODONE HCL (*CRX) 2.5 MG TAB IR PO (15:06)
[2023-06-07] MEDS: ROSUVASTATIN 10 MG TABLET PO (21:56)
[2023-06-07] MEDS: traZODone HCL 50 MG TABLET PO (21:56)
[2023-06-08] MEDS: ACETAMINOPHEN 500 MG TABLET 1000 MG PO ×5 (00:03→23:01)
[2023-06-08 00:12] VITALS: BP 100/55; PULSE 79; RESP 16; TEMP 36.7; O2SAT 98
[2023-06-08 05:35] VITALS: BP 112/65; PULSE 84; RESP 16; TEMP 36.4; O2SAT 96
[2023-06-08 06:02] LABS: Basophils Percent Auto 0.2 % (0.2-1.2); Hemoglobin 9.4 g/dL (12.0-15.0); Immature Granulocyte Absolute 0.05 K/mm3 (0.00-0.031); Immature Granulocyte Percent A 0.4 % (0-0.5); Lymphocytes Absolute Auto 0.81 K/mm3 (0.9-3.2); Lymphocytes Percent Auto 6.4 % (18.3-44.2); Mean Corpuscular HGB Conc 32.4 g/dl (32-36); Mean Corpuscular Hemoglobin 29.2 pg (26-34); Mean Corpuscular Volume 90.1 fl (80-100); Mean Platelet Volume 9.8 fl (7.4-10.4); Monocytes Absolute Auto 0.7 K/mm3 (0.1-0.6); Monocytes Percent Auto 5.6 % (2.6-8.5); Neutrophils Percent Auto 87.4 % (45.5-73.1); Platelet Count Result 274 k/mm3 (150-375); Red Blood Count 3.22 M/mm3 (4.2-5.4); Red Cell Distribution Width 16.6 % (11.5-14.5); White Blood Count 12.6 K/mm3 (4.5-10.0)
[2023-06-08 06:14] LABS: Anion Gap 4 mmol/L (8-16); Blood Urea Nitrogen 15 mg/dL (7-17); Calcium 7.9 mg/dL (8.4-10.2); Carbon Dioxide 25 mmol/L (22-30); Chloride 105 mmol/L (98-107); Estimated CRCL calculation 36 ml/min; Estimated Glomerular Filt Rate > 60; Glucose 143 mg/dL (65-110); Potassium 4.1 mmol/L (3.4-5.0); Sodium 134 mmol/L (137-145)
--- NOTE | 2023-06-08 07:59 | PM.IMPN ---
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 Associated at least partial small bowel obstruction. Shotty lymph nodes just superior to the lesion, suspicious for small local metastatic lymph nodes. Patient has been evaluated by GI and General surgery. She will undergo colonoscopy in 2 days and be on a liquid diet until then. 06/03: bowel prep today and colonoscopy tomorrow. 06/04: colonoscopy reports malignant-appearing masses in the ascending colon and cecum, Oncology to be notified by GI and surgery already on the case 06/05: patient plans to stay for surgical intervention POD 1 for laparoscopic right hemicolectomy Advanced to full liquid diet DVT prophylaxis per surgery, currently SCD and lovenox Activity up to the chair as tolerated Incentive spirometry. Pain control with scheduled Tylenol, prn oxycodone 2.5-5mg Q 4 hours, with morphine 2-4 mg for breakthrough for pain. (2) Essential hypertension: Code(s): I10 - Essential (primary) hypertension Status: Chronic Assessment and Plan: Blood pressures have been soft. Will hold lisinopril/ HCTZ for now. Blood pressure reviewed. Plan POD [address] Booth Subjective Date/time seen: 06/08/23 07:59 Interval history: HPI obtained from the chart, 82 y/o F presents here with persistent nausea with occasional vomiting with PMH of HTN, HLD, and Vitamin D Deficiency. Patient reports she has been persistently nauseous for greater than 1 month, but less than 3 months - unclear start time.? Describes poor appetite, nausea with eating, and occasional emesis.? Has only been able to tolerate very small meals and has on average can keep most down. However, she reported to the GI polymer materials consultant that her PO intake has worsened in the last week. No report of this during my history. No blood in vomit. No dark tarry stools. Reports bowel movements have been normal in consistency, last bowel movement this morning. +Fatigue, +Weakness.? Per chart review, patient weighed 73 kgs in November of this year, currently weighs 55 kgs. No complaints at wellness visit on 12/12/22. Patient then saw primary on 04/27/23,? at that visit she reported that for the previous 3-4 months she has been having pain in her stomach, poor appetite, and unintentional weight loss. ? CT scan was ordered of patient's abdomen at this visit, CT showed? a partially visualized wall thickening of the ascending colon, suspicious for primary malignancy. No previous colonoscopy. Referred to Oncology ([facility]) and GI. Patient has GI appointment yesterday which was cancelled. Interval history: 06/06: Patient is seen today at bedside with her . She is anticipating surgery tomorrow. She denies pain, n/v at this time. No complaints currently. Plan for OR tomorrow at 0900. 06/07: To OR with Dr Booth for laparoscopic right hemicolectomy with ileocolic anastomosis. 06/08: Patient seen today sitting up in chair having lunch. Multiple family members present at bedside. She appears well. She says she walks 3 laps around the unit today. She has some abdominal tenderness at her incisions but otherwise she does not have any real abdominal pain. She is taking her p.r.n. pain medication as needed and is helping to keep her pain tolerable. She is tolerating a clear liquid diet with no nausea or vomiting. She is not passing any gas yet. Awaiting to see if surgery will advance her diet for dinner tonight. Hopefully she will be able to tolerate regular food tomorrow, have return of bowel function, and possibly discharge in the next 1-2 days. Review of Systems Review of Systems: All systems reviewed & are unremarkable except as noted in HPI and b
--- NOTE | 2023-06-08 08:10 | P.PNAN_ITS ---
Anes - Prog Note Post-Op Date/Time: 06/08/23 08:10 Cardiovascular status: normal Respiratory status: normal Airway patency: baseline Mental status: baseline Post-Op hydration status: normal Vital Signs: Last Vital Signs Temp 36.4 C 06/08/23 05:35 Pulse 84 06/08/23 05:35 Resp 16 06/08/23 05:35 BP 112/65 06/08/23 05:35 Pulse Ox 96 06/08/23 05:35 O2 Del Method Room Air 06/07/23 19:54 O2 Flow Rate 6 06/07/23 13:50 Pain Score (VAS): 09/26 I/O: Intake & Output 06/07/23 06/08/23 06/08/23 23:59 07:59 15:59 Intake Total 360 350 Output Total 150 400 Balance 210 -50 Laboratory Tests 06/08/23 05:26 06/08/23 05:26 06/08/23 05:26 WBC 12.6 H RBC 3.22 L Hgb 9.4 L Hct 29.0 L MCV 90.1 MCH 29.2 MCHC 32.4 RDW 16.6 H Plt Count 274 MPV 9.8 Immature Gran % (Auto) 0.4 Neut % (Auto) 87.4 H Lymph % (Auto) 6.4 L [place] % (Auto) 5.6 Eos % (Auto) 0.0 Baso % (Auto) 0.2 Lymph # (Auto) 0.81 L [place] # (Auto) 0.7 H Eos # (Auto) 0.0 Baso # (Auto) 0.0 Abs Immat Gran (auto) 0.05 H Absolute Neuts (auto) 11.0 H Absolute Nucleated RBC 0.0 Nucleated RBC % 0.0 Sodium 134 L Potassium 4.1 Chloride 105 Carbon Dioxide 25 Anion Gap 4 L BUN 15 Creatinine 0.80 Estim Creat Clear Calc 36 Estimated GFR > 60 Glucose 143 H Calcium 7.9 L Post-procedural complaints: none Patient Feedback: Patient satisfied with anesthetic care.
[2023-06-08 08:12] VITALS: BP 129/97; PULSE 77; RESP 17; TEMP 36.1; O2SAT 100
[2023-06-08] MEDS: ENOXAPARIN 40 MG/0.4 ML SYRINGE SUB-Q (08:44)
[2023-06-08] MEDS: PANTOPRAZOLE 40 MG TABLET PO (08:44)
[2023-06-08 12:12] VITALS: BP 131/81; PULSE 71; RESP 16; TEMP 36.4; O2SAT 100
--- NOTE | 2023-06-08 16:33 | PM.PNGS ---
Progress Note: A&P Assessment and Plan (1) Colonic mass: Code(s): K63.89 - Other specified diseases of intestine Status: Acute Assessment and Plan: Advanced to full liquid diet today, await return of bowel function Increase activity Final pathology pending Subjective Subjective Date/Time Seen: 06/08/23 16:33 Interval history: Doing well on postop day 1. Passing flatus, but no BM yet. Pain controlled. Tolerating clear liquids. Exam GI: Inspection: non-distended and incision (Intact with glue) GI Palp: Yes Soft to palpation, Yes Tenderness to palpation present (GI) (Incisional) and No Guarding due to palpation present (GI) Auscultation: normal bowel sounds Objective Data Vital Signs Vital Signs: Vital Signs - 24 hr 06/07/23 16:45 06/07/23 19:54 06/07/23 20:44 Temperature 36.4 C L 36.4 C Pulse Rate 80 92 Respiratory Rate 16 16 Blood Pressure 101/58 L 96/63 L Pulse Oximetry 99 98 Oxygen Delivery Room Air 06/08/23 00:12 06/08/23 05:35 06/08/23 08:12 Temperature 36.7 C 36.4 C 36.1 C L Pulse Rate 79 84 77 Respiratory Rate 16 16 17 Blood Pressure 100/55 L 112/65 129/97 H Pulse Oximetry 98 96 100 Oxygen Delivery 06/08/23 08:20 06/08/23 12:12 Temperature 36.4 C Pulse Rate 71 Respiratory Rate 16 Blood Pressure 131/81 Pulse Oximetry 100 Oxygen Delivery Room Air Intake/Output Intake/Output: Intake & Output 06/05/23 06/06/23 06/07/23 06/08/23 23:59 23:59 23:59 23:59 Intake Total 3720 1992 810 470 Output Total 2 600 580 600 Balance 3718 1392 230 -130 Meds/Results Medications: Active Medications Generic Name Dose Route Start Last Admin Trade Name Freq PRN Reason Stop Dose Admin Acetaminophen 1,000 mg 06/07/23 18:00 06/08/23 12:00 Acetaminophen 500 Mg Tablet PO 1,000 mg Q6HR REGINO Administration Enoxaparin Sodium 40 mg 06/08/23 09:00 06/08/23 08:44 Enoxaparin 40 Mg/0.4 Ml Syringe SUB-Q 40 mg DAILY REGINO Administration Morphine Sulfate 2 mg 06/07/23 14:27 Morphine Sulfate (*Crx) 2 Mg/Ml Inj IV PUSH Q2H PRN Pain Rated 4-6 Morphine Sulfate 4 mg 06/07/23 14:27 Morphine Sulfate (*Crx) 4 Mg/Ml Inj IV PUSH Q2H PRN Pain Rated 7-10 Ondansetron HCl 4 mg 06/01/23 15:25 06/07/23 06:12 Ondansetron Inj 4 Mg/2 Ml Vial IV PUSH 4 mg Q4H PRN Administration Nausea Oxycodone HCl 2.5 mg 06/07/23 14:27 06/07/23 15:06 Oxycodone Hcl (*Crx) 2.5 Mg Tab Ir PO 2.5 mg Q4H PRN Administration Pain Rated 4-6 Oxycodone HCl 5 mg 06/07/23 14:27 Oxycodone Hcl (*Crx) 5 Mg Tab Ir PO Q4H PRN Pain Rated 7-10 Pantoprazole Sodium 40 mg 06/08/23 09:00 06/08/23 08:44 Pantoprazole 40 Mg Tablet PO 40 mg QAM REGINO Administration Rosuvastatin Calcium 10 mg 06/01/23 21:00 06/07/23 21:56 Rosuvastatin 10 Mg Tablet PO 10 mg HS REGINO Administration Trazodone HCl 50 mg 06/02/23 21:00 06/07/23 21:56 Trazodone Hcl 50 Mg Tablet PO 50 mg HS REGINO Administration Radiology Results: ITS Impressions Abdomen/Pelvis CT 06/01/23 14:40 Impression: Masslike wall thickening which appears to be at the cecum/ileocecal valve region, suspicious for adenocarcinoma, most likely of colonic origin. Associated at least partial small bowel obstruction. Shotty lymph nodes just superior to the lesion, suspicious for small local metastatic lymph nodes. Chest CT 06/03/23 16:42 IMPRESSION: 1. A couple <4 mm pulmonary nodules most likely sequela of old granulomatous disease along with calcified right lower lobe nodule and calcified right hilar lymph nodes. No other lesions suspicious for metastatic disease. Labs Labs: Laboratory Results - last 24 hr 06/08/23 05:26 WBC 12.6 H RBC 3.22 L Hgb 9.4 L Hct 29.0 L MCV 90.1 MCH 29.2 MCHC 32.4 RDW 16.6 H Plt Count 274 MPV 9.8 Immature Gran % (Auto) 0.4 Neut % (Auto) 87.4 H Lymph % (Auto) 6.4 L
[2023-06-08 20:20] VITALS: BP 140/69; PULSE 77; RESP 18; TEMP 36.6; O2SAT 98
[2023-06-08] MEDS: traZODone HCL 50 MG TABLET PO (21:48)
[2023-06-08] MEDS: ROSUVASTATIN 10 MG TABLET PO (21:48)
[2023-06-09 04:43] LABS: Hemoglobin 8.1 g/dL (12.0-15.0); Mean Corpuscular HGB Conc 33.8 g/dl (32-36); Mean Corpuscular Volume 88.9 fl (80-100); Platelet Count Result 244 k/mm3 (150-375); Red Cell Distribution Width 16.6 % (11.5-14.5); White Blood Count 12.3 K/mm3 (4.5-10.0)
[2023-06-09 04:59] LABS: Anion Gap 1 mmol/L (8-16); Blood Urea Nitrogen 14 mg/dL (7-17); Calcium 8.1 mg/dL (8.4-10.2); Carbon Dioxide 29 mmol/L (22-30); Chloride 107 mmol/L (98-107); Estimated CRCL calculation 36 ml/min; Estimated Glomerular Filt Rate > 60; Glucose 95 mg/dL (65-110); Potassium 3.8 mmol/L (3.4-5.0); Sodium 137 mmol/L (137-145)
[2023-06-09] MEDS: ACETAMINOPHEN 500 MG TABLET 1000 MG PO ×2 (05:46→12:14)
[2023-06-09 06:00] VITALS: BP 117/62; PULSE 87; RESP 18; TEMP 36.8; O2SAT 98
--- NOTE | 2023-06-09 07:22 | PM.IMPN ---
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 Associated at least partial small bowel obstruction. Shotty lymph nodes just superior to the lesion, suspicious for small local metastatic lymph nodes. Patient has been evaluated by GI and General surgery. She will undergo colonoscopy in 2 days and be on a liquid diet until then. 06/03: bowel prep today and colonoscopy tomorrow. 06/04: colonoscopy reports malignant-appearing masses in the ascending colon and cecum, Oncology to be notified by GI and surgery already on the case 06/05: patient plans to stay for surgical intervention POD 2 for laparoscopic right hemicolectomy Advanced to full liquid diet DVT prophylaxis per surgery, currently SCD and lovenox Activity up to the chair as tolerated Incentive spirometry. Pain control with scheduled Tylenol, prn oxycodone 2.5-5mg Q 4 hours, with morphine 2-4 mg for breakthrough for pain. 06/08 walked three laps around the nurses station. (2) Essential hypertension: Code(s): I10 - Essential (primary) hypertension Status: Chronic Assessment and Plan: Blood pressures have been soft. Will hold lisinopril/ HCTZ for now. Blood pressure reviewed. Plan POD [address] Booth Awaiting return of bowel function Advance diet when appropriate per surgery Subjective Date/time seen: 06/09/23 07:22 Interval history: HPI obtained from the chart, 82 y/o F presents here with persistent nausea with occasional vomiting with PMH of HTN, HLD, and Vitamin D Deficiency. Patient reports she has been persistently nauseous for greater than 1 month, but less than 3 months - unclear start time.? Describes poor appetite, nausea with eating, and occasional emesis.? Has only been able to tolerate very small meals and has on average can keep most down. However, she reported to the GI sales development consultant that her PO intake has worsened in the last week. No report of this during my history. No blood in vomit. No dark tarry stools. Reports bowel movements have been normal in consistency, last bowel movement this morning. +Fatigue, +Weakness.? Per chart review, patient weighed 73 kgs in November of this year, currently weighs 55 kgs. No complaints at wellness visit on 12/12/22. Patient then saw primary on 04/27/23,? at that visit she reported that for the previous 3-4 months she has been having pain in her stomach, poor appetite, and unintentional weight loss. ? CT scan was ordered of patient's abdomen at this visit, CT showed? a partially visualized wall thickening of the ascending colon, suspicious for primary malignancy. No previous colonoscopy. Referred to Oncology ([facility]) and GI. Patient has GI appointment yesterday which was cancelled. Interval history: 06/06: Patient is seen today at bedside with her . She is anticipating surgery tomorrow. She denies pain, n/v at this time. No complaints currently. Plan for OR tomorrow at 0900. 06/07: To OR with Dr Booth for laparoscopic right hemicolectomy with ileocolic anastomosis. 06/08: Patient seen today sitting up in chair having lunch. Multiple family members present at bedside. She appears well. She says she walks 3 laps around the unit today. She has some abdominal tenderness at her incisions but otherwise she does not have any real abdominal pain. She is taking her p.r.n. pain medication as needed and is helping to keep her pain tolerable. She is tolerating a clear liquid diet with no nausea or vomiting. She is not passing any gas yet. Awaiting to see if surgery will advance her diet for dinner tonight. Hopefully she will be able to tolerate regular food tomorrow after return of bowel function, and possibly discharge i
[2023-06-09] MEDS: ENOXAPARIN 40 MG/0.4 ML SYRINGE SUB-Q (08:03)
[2023-06-09] MEDS: PANTOPRAZOLE 40 MG TABLET PO (08:03)
[2023-06-09 13:40] VITALS: BP 111/51; PULSE 72; RESP 18; TEMP 36.9; O2SAT 100
--- NOTE | 2023-06-09 16:07 | PM.PNGS ---
Progress Note: A&P Assessment and Plan (1) Colon cancer: Qualifiers: Colon location: ascending Qualified Code(s): C18.2 - Malignant neoplasm of ascending colon Code(s): C18.9 - Malignant neoplasm of colon, unspecified Status: Acute Assessment and Plan: Doing great postop day 2. Patient would very much like to go home today. She has good family support. Okay to discharge on solid food. I did write some discharge instructions. She needs to follow-up with Dr. East in about 2 weeks. 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 Repeat CBC on Sunday. Subjective Subjective Date/Time Seen: 06/09/23 16:07 Post Op day: 2 Patient reports: no new complaints, feels better, tolerating liquids well, flatus, no bowel movement and afebrile Exam Const: General: comfortable and no acute distress Orientation/consciousness: patient oriented x3 GI: Inspection: non-distended, incision (Incisions all healing well) and no visible herniation GI Palp: Yes Soft to palpation, No Tenderness to palpation present (GI), No Guarding due to palpation present (GI), No Hernia present, No Palpable mass present, No Ascites present and No Rebound tenderness present Neuro: General: patient oriented x3 and no focal motor deficits Extrem: General: no calf tenderness and no edema Psych: Affect: normal affect Insight: Good insight present (Psych) Judgement: Good judgement present (Psych) Objective Data Vital Signs Vital Signs: Vital Signs - 24 hr 06/08/23 20:20 06/08/23 20:00 06/09/23 06:00 Temperature 36.6 C 36.8 C Pulse Rate 77 87 Respiratory Rate 18 18 Blood Pressure 140/69 117/62 Pulse Oximetry 98 98 Oxygen Delivery Room Air 06/09/23 08:10 06/09/23 13:40 Temperature 36.9 C Pulse Rate 72 Respiratory Rate 18 Blood Pressure 111/51 L Pulse Oximetry 100 Oxygen Delivery Room Air Intake/Output Intake/Output: Intake & Output 06/06/23 06/07/23 06/08/23 06/09/23 23:59 23:59 23:59 23:59 Intake Total 0353 213 4953 660 Output Total 683 176 5417 400 Balance 1392 230 -160 260 Meds/Results Medications: Active Medications Generic Name Dose Route Start Last Admin Trade Name Freq PRN Reason Stop Dose Admin Acetaminophen 1,000 mg 06/07/23 18:00 06/09/23 12:14 Acetaminophen 500 Mg Tablet PO 1,000 mg Q6HR REGINO Administration Enoxaparin Sodium 40 mg 06/08/23 09:00 06/09/23 08:03 Enoxaparin 40 Mg/0.4 Ml Syringe SUB-Q 40 mg DAILY REGINO Administration Morphine Sulfate 2 mg 06/07/23 14:27 Morphine Sulfate (*Crx) 2 Mg/Ml Inj IV PUSH Q2H PRN Pain Rated 4-6 Morphine Sulfate 4 mg 06/07/23 14:27 Morphine Sulfate (*Crx) 4 Mg/Ml Inj IV PUSH Q2H PRN Pain Rated 7-10 Ondansetron HCl 4 mg 06/01/23 15:25 06/07/23 06:12 Ondansetron Inj 4 Mg/2 Ml Vial IV PUSH 4 mg Q4H PRN Administration Nausea Oxycodone HCl 2.5 mg 06/07/23 14:27 06/07/23 15:06 Oxycodone Hcl (*Crx) 2.5 Mg Tab Ir PO 2.5 mg Q4H PRN Administration Pain Rated 4-6 Oxycodone HCl 5 mg 06/07/23 14:27 Oxycodone Hcl (*Crx) 5 Mg Tab Ir PO Q4H PRN Pain Rated 7-10 Pantoprazole Sodium 40 mg 06/08/23 09:00 06/09/23 08:03 Pantoprazole 40 Mg Tablet PO 40 mg QAM REGINO Administration Rosuvastatin Calcium 10 mg 06/01/23 21:00 06/08/23 21:48 Rosuvastatin 10 Mg Tablet PO 10 mg HS REGINO Administration Trazodone HCl 50 mg 06/02/23 21:00 06/08/23 21:48 Trazodone Hcl 50 Mg Tablet PO 50 mg HS REGINO Administration Radiology Results: ITS Impressions Abdomen/Pelvis CT 06/01/23 14:40 Impression: Masslike wall thickening which appears to be at the cecum/ileocecal valve region, suspicious for adenocarcinoma, most likely of colonic jared
--- NOTE | 2023-06-09 16:40 | PM.DS ---
DS: Admitting Diagnosis Discharge Date 06/09/23 Admitting Diagnosis nausea and vomiting DS: Discharge Diagnosis Discharge Diagnosis (1) Colonic mass: Code(s): K63.89 - Other specified diseases of intestine Status: Acute Assessment and Plan: Masslike wall thickening which appears to be at the cecum/ileocecal valve region, suspicious for adenocarcinoma, most likely of colonic origin. Associated at least partial small bowel obstruction. Shotty lymph nodes just superior to the lesion, suspicious for small local metastatic lymph nodes. Patient has been evaluated by GI and General surgery. She will undergo colonoscopy in 2 days and be on a liquid diet until then. 06/03: bowel prep today and colonoscopy tomorrow. 06/04: colonoscopy reports malignant-appearing masses in the ascending colon and cecum, Oncology to be notified by GI and surgery already on the case 06/05: patient plans to stay for surgical intervention POD 2 for laparoscopic right hemicolectomy Advanced to full liquid diet DVT prophylaxis per surgery, currently SCD and lovenox Activity up to the chair as tolerated Incentive spirometry. Pain control with scheduled Tylenol, prn oxycodone 2.5-5mg Q 4 hours, with morphine 2-4 mg for breakthrough for pain. 06/08 walked three laps around the nurses station. (2) Essential hypertension: Code(s): I10 - Essential (primary) hypertension Status: Chronic Assessment and Plan: Blood pressures have been soft. Will hold lisinopril/ HCTZ for now. Blood pressure reviewed. Plan POD [address] Booth Awaiting return of bowel function Advance diet when appropriate per surgery DS: Summary Hospital Course Hospital Course: Interval history: HPI obtained from the chart, 82 y/o F presents here with persistent nausea with occasional vomiting with PMH of HTN, HLD, and Vitamin D Deficiency. Patient reports she has been persistently nauseous for greater than 1 month, but less than 3 months - unclear start time.? Describes poor appetite, nausea with eating, and occasional emesis.? Has only been able to tolerate very small meals and has on average can keep most down. However, she reported to the GI consultant internship that her PO intake has worsened in the last week. No report of this during my history. No blood in vomit. No dark tarry stools. Reports bowel movements have been normal in consistency, last bowel movement this morning. +Fatigue, +Weakness.? Per chart review, patient weighed 73 kgs in November of this year, currently weighs 55 kgs. No complaints at wellness visit on 12/12/22. Patient then saw primary on 04/27/23,? at that visit she reported that for the previous 3-4 months she has been having pain in her stomach, poor appetite, and unintentional weight loss. ? CT scan was ordered of patient's abdomen at this visit, CT showed? a partially visualized wall thickening of the ascending colon, suspicious for primary malignancy. No previous colonoscopy. Referred to Oncology ([facility]) and GI. Patient has GI appointment yesterday which was cancelled. Interval history: 06/06: Patient is seen today at bedside with her . She is anticipating surgery tomorrow. She denies pain, n/v at this time. No complaints currently. Plan for OR tomorrow at 0900. 06/07: To OR with Dr Booth for laparoscopic right hemicolectomy with ileocolic anastomosis. 06/08:? Patient seen today sitting up in chair having lunch.? Multiple family members present at bedside.? She appears well.? She says she walks 3 laps around the unit today.? She has some abdominal tenderness at her incisions but otherwise she does not have any real abdominal pain.? She is taking her p.r.n. pain medication as needed and is helping to keep her pain tolerable.? She is tolerating a clear liquid diet with no nausea or vomiting.? She is not passing any gas yet.? Awaiting to see if surgery will advance her diet for dinner tonight.? Hopefully she will be
== END 2023-06-09 17:05 | disposition home or self-care (01) | DRG 329 ==
LOC: ANHED 16:38 → ANH2MED 17:04
PROVIDERS: Internal Medicine Gastroenterology; Preventive Medicine Aerospace Medicine; Surgery; Admitting Provider General Practice; Emergency Provider Nurse Practitioner Family; PCP Family Medicine; Visit Provider Nurse Practitioner Acute Care
PROC: 0DJD8ZZ Inspection of Lower Intestinal Tract, Via Natural or Artificial Opening Endoscopic (ICD-10-PCS; CPT 45378; principal; 2023-06-04 14:15)
PROC: 0DTF4ZZ Resection of Right Large Intestine, Percutaneous Endoscopic Approach (ICD-10-PCS; principal; 2023-06-07 09:00)
DX: C18.0 Malignant neoplasm of cecum (principal); E43 Unspecified severe protein-calorie malnutrition; C77.2 Secondary and unspecified malignant neoplasm of intra-abdominal lymph nodes; D50.0 Iron deficiency anemia secondary to blood loss (chronic); I10 Essential (primary) hypertension; E55.9 Vitamin D deficiency, unspecified; E78.2 Mixed hyperlipidemia; R63.4 Abnormal weight loss; R63.0 Anorexia; Z80.0 Family history of malignant neoplasm of digestive organs; Z68.23 Body mass index [BMI] 23.0-23.9, adult
CPT/HCPCS: 36415; 71260; 74177; 80048; 80053; 81001; 82378; 83690; 83735; 84100; 85025; 85027; 85610; 85730; 86850; 86900; 86901; 88305; 88309; 93005; 99285; A9270; C9113; J0330; J0690; J1100; J1170; J1650; J1836; J1885; J2001; J2371; J2405; J2704; J3010; J3480; J7040; J7120; Q9967

== ENCOUNTER 2023-06-12 08:26 | Outpatient (CLI) | payer OTHER, SELFPAY ==
[2023-06-12 09:34] LABS: Hematocrit 31.2 % (37.0-47.0); Hemoglobin 10.3 g/dL (12.0-15.0); Mean Corpuscular Hemoglobin 29.6 pg (26-34); Mean Corpuscular Volume 89.7 fl (80-100); Mean Platelet Volume 9.1 fl (7.4-10.4); Platelet Count Result 357 k/mm3 (150-375); Red Blood Count 3.48 M/mm3 (4.2-5.4); Red Cell Distribution Width 16.1 % (11.5-14.5); White Blood Count 7.2 K/mm3 (4.5-10.0)
== END 2023-06-12 08:27 | disposition home or self-care (01) ==
LOC: ANHLAB 08:27
PROVIDERS: PCP Family Medicine; Visit Provider Surgery
DX: D50.0 Iron deficiency anemia secondary to blood loss (chronic) (principal)
CPT/HCPCS: 36415; 85027

== ENCOUNTER 2023-07-28 10:01 | Inpatient (IN) | payer OTHER, SELFPAY ==
[2023-07-28] VITALS (10 sets, daily range): BP systolic 102–118; BP diastolic 43–82; PULSE 66–94; RESP 16–22; TEMP 36.4–36.9; O2SAT 99–100; BMI 23.8
--- NOTE | ~2023-07-28 | CT_ITS ---
EXAMINATION: CT chest abdomen pelvis w con DATE: 07/30/2023 13:27 INDICATION: Colon cancer with dysphagia. TECHNIQUE: Computed tomography (CT) of the chest, abdomen, and pelvis was performed with 100 L Omnipa que 350 intravenous contrast. Automated exposure control and iterative reconstruction technique were employed. The dose-length product was 387.92 mGy-cm. COMPARISON: CT abdomen and pelvis 06/01/2023 FINDINGS: CHEST CT: The visualized portions of the lung bases demonstrate mild atelectasis. A calcified right lung nodule and calcified right hilar lymph nodes are consistent with old granulomatous disease. No pleural effu lu. The heart size is normal. There are coronary artery calcifications. No pericardial effusion. Th ere is a 5 mm nodule in the thyroid, likely not clinically significant. Aortic atherosclerosis is not ed. There is a small sliding hiatal hernia. There are bridging endplate osteophytes at multiple level s in the spine, consistent with diffuse idiopathic skeletal hyperostosis (DISH). ABDOMEN/PELVIS CT: The liver is normal. There are changes of cholecystectomy. There is a 5 mm cyst in the spleen. The pa ncreas, adrenal glands, and kidneys are normal. There is a left inguinal hernia containing fat. There is liquid stool in the colon suggesting diarrhea. There are changes of right hemicolectomy. There is wall thickening of the distal ileum with mesenteric edema. There is wall thickening of the rectosigm oid. There is mucosal hyperemia in the colon. There is a left inguinal hernia containing fat. There a re no pathologically enlarged lymph nodes. There is no free intraperitoneal fluid. There is severe magi mbar spondylosis. IMPRESSION: 1. Enterocolitis. 2. Small sliding hiatal hernia. Reviewed, dictated and finalized at location A. UP HELPER
--- NOTE | ~2023-07-28 | XR_ITS ---
EXAM: XR abdomen/kub 1V DATE: 07/28/2023 17:16 HISTORY: persistant nausea, no appetite . COMPARISON: None available. FINDINGS: Clear lung bases. Normal bowel gas pattern. No organomegaly. Multiple suture lines over th e right abdomen. Cholecystectomy clips. Lumbar degenerative disc disease.. IMPRESSION: No radiographic evidence of obstruction or ileus. Reviewed, dictated and finalized at location K. OLOGY PHYSICIAN ASSISTANT
--- NOTE | 2023-07-28 10:51 | ED.WEAKNESS ---
HPI - Weakness General Chief complaint: Weakness Stated complaint: weakness/ on chemo Time Seen by Provider: 07/28/23 10:19 History of Present Illness HPI Narrative: Patient has diagnosis of colon cancer and was started on chemotherapy about a week ago, since then she has not had an appetite, will not eat or drink, and has become progressively weaker. Denies nausea or abdominal pain, she reports the reason she does not eat is because she just does not have an appetite. Related Data Home Medications Medication Instructions Recorded Confirmed magnesium 200 mg tablet 200 mg PO DAILY 12/01/20 07/20/23 cholecalciferol (vitamin D3) 1,250 1,250 mcg PO DAILY 05/03/21 07/20/23 mcg (50,000 unit) capsule [id number] fumarate 18 1 tab-cap PO DAILY 05/12/21 07/20/23 mg-FA 600 mcg-vit K 40 mcg capsule (Multi For Her) vit A 300 mcg-C 200 mg-E 27 1 tablet PO HS 06/03/21 07/20/23 mg-lutein 2 mg and minerals tablet (Healthy Eyes) Sleep Aid (diphenhydramine) 25 mg PO HS PRN Sleep 06/01/23 07/20/23 Allergies Allergy/AdvReac Type Severity Reaction Status Date / Time No Known Allergies Allergy Verified 07/20/23 08:53 Review of Systems Review of Systems: CONST: No fever. HEENT: No sore throat C/V: No chest pain RESP: No cough GI: No appetite : No dysuria. M/S: No joint pain. SKIN: No rash. 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 Essential hypertension Hyperlipidemia Vitamin D deficiency Surgical History Surgical History (Updated 07/28/23 @ 14:07 by Vivi Martin PA-C) History of bilateral cataract extraction History of cholecystectomy History of right hemicolectomy (06/07/23) History of umbilical hernia repair Umbilical hernia repair with 6.6 cm Parietex underlay mesh Family History Family History Mother Family history of dementia Hypertension Carcinoma of colon Father Hypertension Social History Social History (Updated 07/28/23 @ 14:07 by Vivi Martin PA-C) Social History: Surrogate medical decision maker: Code status: Full code. Smoking status: Never smoker Second hand tobacco smoke exposure: No Alcohol intake: current Alcohol use details: Occasional, at holidays. Substance use: never Substance use type: does not use Lack of Transportation: No Lack of Food: Never True Current Housing: I Have Housing Concerned About Future Housing: No Difficulty Paying Gas/Electric Bills: No Difficulty Paying for Meds: No Currently Unemployed: No Education: High School Diploma/GED Difficulty w/ Childcare or Family Care: No Living arrangements: with family Additional living arrangements comments: . Lives with spouse in [place]. 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 Occupation/Education: retired Spiritual care concerns: No Exam Narrative: EXAMINATION OF ORGAN SYSTEMS/BODY AREAS: Constitutional: Vital signs per nursing GENERAL: Appears tired HEAD: Normal with no signs of head trauma. EYES: EOMI, conjunctiva normal ENT: Hearing grossly intact LUNGS: Nonlabored breathing. HEART: [Regular rate and rhythm] ABD: [Soft], [nontender to palpation] EXT: Normal range of motion SKIN: [No rashes or lesions.] NEURO: [Alert and oriented x 3. No gross focal sensory or strength deficits.] PSYCH: Normal affect Course Vital Signs Vital signs: Vital Signs Temperature 97.6 F 07/28/23 10:08 Pulse Rate 66 07/28/23 10:08 Respiratory Rate 18 07/28/23 10:08 Blood Pressure 102/72 07/28/23 10:08 Pulse Oximetry 99 07/28/23 10:08 Oxygen Delivery Room Air 07/28/23 10:08 Temperature 97.6 F 1
[2023-07-28 11:00] LABS: Basophils Absolute Auto 0.1 K/mm3 (0.0-0.1); Basophils Percent Auto 0.9 % (0.2-1.2); Eosinophils Percent Auto 0.5 % (0-4.4); Hematocrit 37.8 % (37.0-47.0); Hemoglobin 12.5 g/dL (12.0-15.0); Immature Granulocyte Absolute 0.05 K/mm3 (0.00-0.031); Immature Granulocyte Percent A 0.7 % (0-0.5); Lymphocytes Absolute Auto 1.19 K/mm3 (0.9-3.2); Mean Corpuscular HGB Conc 33.1 g/dl (32-36); Mean Corpuscular Hemoglobin 30.6 pg (26-34); Mean Corpuscular Volume 92.4 fl (80-100); Mean Platelet Volume 8.8 fl (7.4-10.4); Neutrophils Absolute Auto 4.1 K/mm3 (1.3-6.7); Neutrophils Percent Auto 54.9 % (45.5-73.1); Platelet Count Result 392 k/mm3 (150-375); Red Blood Count 4.09 M/mm3 (4.2-5.4); Red Cell Distribution Width 15.3 % (11.5-14.5); White Blood Count 7.4 K/mm3 (4.5-10.0)
[2023-07-28] MEDS: LACTATED RINGERS 1,000 ML 999 ML IV CONT ×2 (11:06→13:51)
[2023-07-28 11:10] LABS: Alanine Aminotransferase 14 U/L (6-35); Albumin Level 3.1 g/dL (3.5-5.1); Alkaline Phosphatase 55 U/L (38-126); Anion Gap 15 mmol/L (8-16); Aspartate Amino Transferase 21 U/L (14-36); Bilirubin,Total 0.4 mg/dL (0.2-1.3); Blood Urea Nitrogen 22 mg/dL (7-17); Calcium 8.8 mg/dL (8.4-10.2); Carbon Dioxide 19 mmol/L (22-30); Chloride 99 mmol/L (98-107); Estimated CRCL calculation 36 ml/min; Estimated Glomerular Filt Rate > 60; Glucose 98 mg/dL (65-110); Potassium 3.1 mmol/L (3.4-5.0); Sodium 133 mmol/L (137-145)
[2023-07-28 11:26] LABS: Lipase 56 U/L (23-300)
[2023-07-28] MEDS: POTASSIUM CHLORIDE 20 MEQ PACKET (FOR LIQUID) 40 MEQ PO (11:49)
[2023-07-28 12:51] LABS: Appearance Urine Cloudy (Clear); Bacteria Urine None Seen /hpf; Bilirubin Urine Negative (Negative); Blood Urine Negative (Negative); Color Urine Dark Yellow (Yellow); Glucose Urine UA Negative (Negative); Ketones Urine 4+ mg/dL (Negative); Leukocyte Esterase Ur Negative LEU/UL (Negative); Need Manual Microscopic Reviewed; Nitrate Urine Negative (Negative); Protein Urine 1+ mg/dL (Negative); Squamous Epithelial Cell Urine Occasional /hpf (Few); WBC Urine 0-5 /hpf; pH Urine 5.5 (5.0-9.0)
[2023-07-28 12:52] LABS: Add Urine Microscopic? YES; Specific Grav Ur 1.037 (1.001-1.035)
--- NOTE | 2023-07-28 14:03 | PM.IMHP ---
H&P: HPI History of Present Illness Date/Time: 07/28/23 14:30 Chief Complaint: Generalized weakness. 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 Essential hypertension Hyperlipidemia Vitamin D deficiency Surgical History Surgical History (Updated 07/28/23 @ 14:07 by Vivi Martin PA-C) History of bilateral cataract extraction History of cholecystectomy History of right hemicolectomy (06/07/23) History of umbilical hernia repair Umbilical hernia repair with 6.6 cm Parietex underlay mesh Family History Family History Mother Family history of dementia Hypertension Carcinoma of colon Father Hypertension Social History Social History (Updated 07/28/23 @ 14:07 by Vivi Martin PA-C) Social History: Surrogate medical decision maker: Code status: Full code. Smoking status: Never smoker Second hand tobacco smoke exposure: No Alcohol intake: current Alcohol use details: Occasional, at holidays. Substance use: never Substance use type: does not use Lack of Transportation: No Lack of Food: Never True Current Housing: I Have Housing Concerned About Future Housing: No Difficulty Paying Gas/Electric Bills: No Difficulty Paying for Meds: No Currently Unemployed: No Education: High School Diploma/GED Difficulty w/ Childcare or Family Care: No Living arrangements: with family Additional living arrangements comments: . Lives with spouse in [place]. 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 Occupation/Education: retired Spiritual care concerns: No Meds Home Medications and Allergies Home Medications Medication Instructions Recorded Confirmed Type magnesium 200 mg tablet 200 mg PO DAILY 12/01/20 07/20/23 History cholecalciferol (vitamin D3) 1,250 1,250 mcg PO DAILY 05/03/21 07/20/23 History mcg (50,000 unit) capsule vebuoyyoh-[id number] fumarate 18 1 tab-cap PO DAILY 05/12/21 07/20/23 History mg-FA 600 mcg-vit K 40 mcg capsule (Multi For Her) vit A 300 mcg-C 200 mg-E 27 1 tablet PO HS 06/03/21 07/20/23 History mg-lutein 2 mg and minerals tablet (Healthy Eyes) rosuvastatin 10 mg tablet 10 mg PO HS #30 tabs 01/29/23 07/20/23 Rx Sleep Aid (diphenhydramine) 25 mg PO HS PRN Sleep 06/01/23 07/20/23 History ferrous sulfate 325 mg (65 mg 325 mg PO BID #60 tabs 06/09/23 07/20/23 Rx iron) tablet Allergies Allergy/AdvReac Type Severity Reaction Status Date / Time No Known Allergies Allergy Verified 07/20/23 08:53 Vital Signs Vital Signs - 24 hr 07/28/23 10:08 07/28/23 10:41 07/28/23 11:56 Temperature 97.6 F Pulse Rate 66 94 85 Respiratory Rate 18 22 H 22 H Blood Pressure 102/72 118/82 113/61 Pulse Oximetry 99 100 100 Oxygen Delivery Room Air 07/28/23 12:44 07/28/23 13:27 Temperature Pulse Rate 86 86 Respiratory Rate 20 16 Blood Pressure 102/60 105/64 Pulse Oximetry 100 100 Oxygen Delivery H&P: Results Labs Labs: Short CBC 07/28/23 Range/Units 10:53 WBC 7.4 (4.5-10.0) K/mm3 Hgb 12.5 (12.0-15.0) g/dL Hct 37.8 (37.0-47.0) % Plt Count 392 H (150-375) k/mm3 BMP 07/28/23 10:53 Sodium 133 L Potassium 3.1 L Chloride 99 Carbon Dioxide 19 L BUN 22 H Creatinine 0.80 Glucose 98 Calcium 8.8 Liver Function 07/28/23 Range/Units 10:53 Total Bilirubin 0.4 (0.2-1.3) mg/dL AST 21 (14-36) U/L ALT 14 (6-35) U/L Alkaline Phosphatase 55 (38-126) U/L Albumin 3.1 L (3.5-5.1) g/dL Urine 07/28/23 Range/Uni
--- NOTE | 2023-07-28 16:08 | ADMGEN ---
This patient, Loly Duncan, was admitted to Medical Room 341-01. Patient/family oriented to hospital policies and general routines including ID bracelet, bed and alarms, visiting hours, pain management, procedures, bathroom and other care routines, personal items, smoking policy, room service/diet, and visiting hours. Information on how to activate the Rapid Response Team has been discussed. Patient/Family are encouraged to report perceived risks to care and to ask questions if they do not understand what they are told or what they should do.
[2023-07-28] MEDS: ONDANSETRON INJ 4 MG/2 ML VIAL IV PUSH (16:46)
[2023-07-28] MEDS: DEXTROSE 5%/0.9% SOD CHL 1,000 ML 100 ML IV CONT (16:58)
[2023-07-28] MEDS: ENOXAPARIN 40 MG/0.4 ML SYRINGE SUB-Q (16:59)
[2023-07-28] MEDS: diphenhydrAMINE HCl CAP 25 MG CAPSULE PO (23:07)
[2023-07-29] MEDS: DEXTROSE 5%/0.9% SOD CHL 1,000 ML 100 ML IV CONT (03:03)
[2023-07-29 06:00] VITALS: BP 110/51; PULSE 73; RESP 16; TEMP 37.2; O2SAT 100
[2023-07-29 06:05] LABS: Basophils Absolute Auto 0.1 K/mm3 (0.0-0.1); Eosinophils Absolute Auto 0.1 K/mm3 (0-0.3); Eosinophils Percent Auto 0.9 % (0-4.4); Hematocrit 33.2 % (37.0-47.0); Hemoglobin 11.2 g/dL (12.0-15.0); Immature Granulocyte Absolute 0.04 K/mm3 (0.00-0.031); Immature Granulocyte Percent A 0.7 % (0-0.5); Lymphocytes Absolute Auto 0.86 K/mm3 (0.9-3.2); Lymphocytes Percent Auto 14.6 % (18.3-44.2); Mean Corpuscular HGB Conc 33.7 g/dl (32-36); Mean Corpuscular Hemoglobin 30.6 pg (26-34); Mean Corpuscular Volume 90.7 fl (80-100); Mean Platelet Volume 8.8 fl (7.4-10.4); Monocytes Absolute Auto 1.6 K/mm3 (0.1-0.6); Monocytes Percent Auto 26.4 % (2.6-8.5); Neutrophils Absolute Auto 3.3 K/mm3 (1.3-6.7); Neutrophils Percent Auto 56.4 % (45.5-73.1); Platelet Count Result 331 k/mm3 (150-375); Red Blood Count 3.66 M/mm3 (4.2-5.4); White Blood Count 5.9 K/mm3 (4.5-10.0)
[2023-07-29 06:17] LABS: Anion Gap 5 mmol/L (8-16); Blood Urea Nitrogen 16 mg/dL (7-17); Calcium 7.9 mg/dL (8.4-10.2); Carbon Dioxide 24 mmol/L (22-30); Chloride 105 mmol/L (98-107); Estimated CRCL calculation 40 ml/min; Estimated Glomerular Filt Rate > 60; Glucose 150 mg/dL (65-110); Potassium 3.1 mmol/L (3.4-5.0); Sodium 134 mmol/L (137-145)
[2023-07-29 07:39] LABS: Giant Platelets Present; Platelet Estimate Adequate (Adequate); Schistocytes None Seen (NORMAL)
[2023-07-29] MEDS: MAGNESIUM OXIDE 200 MG TABLET PO (08:27)
[2023-07-29] MEDS: FERROUS SULFATE 325 MG TABLET DR PO ×2 (08:27→17:00)
[2023-07-29] MEDS: ENOXAPARIN 40 MG/0.4 ML SYRINGE SUB-Q (08:27)
[2023-07-29] MEDS: ACETAMINOPHEN 325 MG TABLET 650 MG PO (08:35)
[2023-07-29] MEDS: POTASSIUM CHLORIDE INJ 40 MEQ in SODIUM CHLORIDE 0.9% IV 500 ML 130 MEQ IVPB (09:37)
[2023-07-29] MEDS: ONDANSETRON INJ 4 MG/2 ML VIAL IV PUSH (13:05)
[2023-07-29 14:00] VITALS: BP 115/73; PULSE 82; RESP 18; TEMP 36.8; O2SAT 100
--- NOTE | 2023-07-29 14:20 | PM.IMPN ---
Progress Note: A&P Assessment and Plan (1) Dehydration: Code(s): E86.0 - Dehydration Status: Acute Assessment and Plan: She endorses poor appetite with limited oral intake since receiving chemotherapy on 07/11/2023. Family members have encouraged her to drink protein shakes though she only consumes very small amounts. Concentrated urine with 4+ ketones. D5 normal saline for continued hydration. (2) Electrolyte abnormality: Code(s): E87.8 - Other disorders of electrolyte and fluid balance, not elsewhere classified Status: Acute Assessment and Plan: Sodium and potassium are low. Replace potassium and monitor. Continue IV fluid rehydration. (3) Colon cancer: Qualifiers: Colon location: ascending Qualified Code(s): C18.2 - Malignant neoplasm of ascending colon Code(s): C18.9 - Malignant neoplasm of colon, unspecified Status: Acute Assessment and Plan: She received her 1st chemotherapy infusion on 07/11/2023 at which time she was also started on oral chemotherapy pills. Both of these have been placed on hold per Dr. Greenberg given her profound weakness, fatigue, and lack of appetite/oral intake. (4) Malnutrition: Code(s): E46 - Unspecified protein-calorie malnutrition Status: Acute Assessment and Plan: Severe malnutrition diagnosed back in May 2023. Will get another dietary evaluation. Discussed with family that if patient cannot sustain life with her current diet and feeding tube will be the next step. She is on appetite stimulant, Megace Continue Megace 20 mg b.i.d.. Await further instruction from dietitian. Subjective Date/time seen: 07/29/23 14:20 Interval history: Discussed patient's nutrition status with both her daughter and at bedside. They understand the ramifications of not getting adequate nutrition. Patient does not have any complaints at this time. She does have follow-up appointment with Dr. Greenberg on Sunday. Exam Narrative: GENERAL: Comfortable, no acute distress, frail HENMT: moist mucous membranes EYES: EOM intact b/l NECK: no lymphadenopathy RESPIRATORY: clear to auscultation CARDIO: RRR GI: soft, nontender, bowel sounds present SKIN: no rashes EXTREMITIES: no edema, redness or tenderness Objective Data Vital Signs Vital Signs: Vital Signs - 24 hr 07/28/23 14:50 07/28/23 15:32 07/28/23 15:55 Temperature 98.0 F Pulse Rate 71 85 88 Respiratory Rate 19 16 16 Blood Pressure 112/65 109/66 103/53 L Pulse Oximetry 100 99 100 Oxygen Delivery 07/28/23 21:25 07/28/23 20:00 07/28/23 23:08 Temperature 98.5 F Pulse Rate 84 Respiratory Rate 16 Blood Pressure 104/43 L 112/62 Pulse Oximetry 100 Oxygen Delivery Room Air 07/29/23 06:00 Temperature 98.9 F Pulse Rate 73 Respiratory Rate 16 Blood Pressure 110/51 L Pulse Oximetry 100 Oxygen Delivery Intake/Output Intake/Output: Intake & Output 07/26/23 07/27/23 07/28/23 07/29/23 23:59 23:59 23:59 23:59 Intake Total 2400 1240 Output Total 50 400 Balance 2350 840 Meds/Results Medications: Active Medications Generic Name Dose Route Start Last Admin Trade Name Freq PRN Reason Stop Dose Admin Acetaminophen 650 mg 07/28/23 14:13 07/29/23 08:35 Acetaminophen 325 Mg Tablet PO 650 mg Q6H PRN Administration Mild Pain (1-3) or Fever Diphenhydramine HCl 25 mg 07/28/23 17:37 07/28/23 23:07 Diphenhydramine Hcl Cap 25 Mg Capsule PO 25 mg HS PRN Administration Sleep Enoxaparin Sodium 40 mg 07/28/23 14:35 07/29/23 08:27 Enoxaparin 40 Mg/0.4 Ml Syringe SUB-Q 40 mg DAILY REGINO Administration Ergocalciferol units 07/29/23 09:00 Ergocalciferol 50,000 Units Capsule PO DAILY REGINO Ferrous Sulfate 325 mg 07/29/23 09:00 07/29/23 08:27 Ferrous Sulfate [address] PO 08/28/23 08:59 325 mg BID REGINO Administration Dextrose/Sodium Chlo
[2023-07-29] MEDS: ONDANSETRON HCL ODT 4 MG TABLET PO (16:02)
--- NOTE | 2023-07-29 16:17 | PC.NURSE ---
No IV hospitalist aware
[2023-07-29] MEDS: MEGESTROL ACETATE (*CHEMO) 20 MG TABLET PO (17:00)
[2023-07-29 20:00] VITALS: PULSE 83; RESP 18; O2SAT 99
[2023-07-29 21:25] VITALS: BP 110/64; PULSE 83; RESP 18; TEMP 36.4; O2SAT 99
[2023-07-30 05:49] VITALS: BP 116/59; PULSE 81; RESP 18; TEMP 36.8; O2SAT 100
[2023-07-30 08:00] VITALS: O2SAT 100
[2023-07-30] MEDS: ERGOCALCIFEROL 50,000 UNITS CAPSULE 50000 UNITS PO (08:17)
[2023-07-30] MEDS: FERROUS SULFATE 325 MG TABLET DR PO ×2 (08:18→16:37)
[2023-07-30] MEDS: MEGESTROL ACETATE (*CHEMO) 20 MG TABLET PO ×2 (08:18→16:37)
[2023-07-30] MEDS: ENOXAPARIN 40 MG/0.4 ML SYRINGE SUB-Q (08:18)
[2023-07-30] MEDS: MAGNESIUM OXIDE 200 MG TABLET PO (08:18)
[2023-07-30 09:39] LABS: Anion Gap 9 mmol/L (8-16); Blood Urea Nitrogen 20 mg/dL (7-17); Calcium 8.3 mg/dL (8.4-10.2); Carbon Dioxide 19 mmol/L (22-30); Chloride 106 mmol/L (98-107); Estimated CRCL calculation 55 ml/min; Estimated Glomerular Filt Rate > 60; Glucose 91 mg/dL (65-110); Potassium 4.1 mmol/L (3.4-5.0); Sodium 134 mmol/L (137-145)
--- NOTE | 2023-07-30 13:09 | PM.IMPN ---
Progress Note: A&P Assessment and Plan (1) Dehydration: Code(s): E86.0 - Dehydration Status: Chronic Assessment and Plan: She endorses poor appetite with limited oral intake since receiving chemotherapy on 07/11/2023. Family members have encouraged her to drink protein shakes though she only consumes very small amounts. Concentrated urine with 4+ ketones. D5 normal saline discontinued and patient's labs stabilized. (2) Electrolyte abnormality: Code(s): E87.8 - Other disorders of electrolyte and fluid balance, not elsewhere classified Status: Acute Assessment and Plan: Sodium and potassium are low. Replace potassium and monitor. IV fluids discontinued. (3) Colon cancer: Qualifiers: Colon location: ascending Qualified Code(s): C18.2 - Malignant neoplasm of ascending colon Code(s): C18.9 - Malignant neoplasm of colon, unspecified Status: Acute Assessment and Plan: She received her 1st chemotherapy infusion on 07/11/2023 at which time she was also started on oral chemotherapy pills. Both of these have been placed on hold per Dr. Greenberg given her profound weakness, fatigue, and lack of appetite/oral intake. Oncology consulted. CT abdomen and pelvis ordered due to lack of appetite and revealed enterocolitis. Is likely related to patient's cancer due to her not having any abdominal pain, a white blood cell count or diarrhea. Oncology recommended GI consult due to nutrition status. (4) Malnutrition: Code(s): E46 - Unspecified protein-calorie malnutrition Status: Acute Assessment and Plan: Severe malnutrition diagnosed back in May 2023. Will get another dietary evaluation. Discussed with family that if patient cannot sustain life with her current diet and feeding tube will be the next step. She is on appetite stimulant, Megace Continue Megace 20 mg b.i.d.. Await further instruction from dietitian. Subjective Date/time seen: 07/30/23 13:09 Interval history: Patient has had a 50 lb weight loss since March. Discussed with dietary about options for the patient. Patient has been on appetite stimulants as well as appetite supplements. Oncology also saw patient recommended a GI consult. Patient may be considered for G-tube if she cannot keep up with her calorie intake. Patient family air discuss with how they would like to proceed. CT abdomen pelvis performed showing enterocolitis. This is likely due to cancer changes in the colon. Patient does not have a white count nor did she have any abdominal pain or diarrhea. Will await further instruction from GI. Exam Narrative: GENERAL: Comfortable, no acute distress, frail HENMT: moist mucous membranes EYES: EOM intact b/l NECK: no lymphadenopathy RESPIRATORY: clear to auscultation CARDIO: RRR GI: soft, nontender, bowel sounds present SKIN: no rashes EXTREMITIES: no edema, redness or tenderness Objective Data Vital Signs Vital Signs: Vital Signs - 24 hr 07/29/23 14:00 07/29/23 21:25 07/29/23 20:00 Temperature 98.2 F 97.6 F Pulse Rate 82 83 83 Respiratory Rate 18 18 18 Blood Pressure 115/73 110/64 Pulse Oximetry 100 99 99 Oxygen Delivery Room Air 07/30/23 05:49 07/30/23 08:00 Temperature 98.3 F Pulse Rate 81 Respiratory Rate 18 Blood Pressure 116/59 L Pulse Oximetry 100 100 Oxygen Delivery Room Air Intake/Output Intake/Output: Intake & Output 07/27/23 07/28/23 07/29/23 07/30/23 23:59 23:59 23:59 23:59 Intake Total 2400 1480 440 Output Total 50 500 Balance 2350 980 440 Meds/Results Medications: Active Medications Generic Name Dose Route Start Last Admin Trade Name Freq PRN Reason Stop Dose Admin Acetaminophen 650 mg 07/28/23 14:13 07/29/23 08:35 Acetaminophen 325 Mg Tablet PO 650 mg Q6H PRN Administration Mild Pain (1-3) or Fever Diphenhydramine HCl 25 mg 07/28/23 17:37
[2023-07-30 13:38] VITALS: BMI 21.2
[2023-07-30 14:00] VITALS: BP 103/52; PULSE 80; RESP 18; TEMP 36.8; O2SAT 100
--- NOTE | 2023-07-30 15:37 | WPDGICN ---
Assessment and Plan Assessment and plan (1) Nausea and vomiting: Code(s): R11.2 - Nausea with vomiting, unspecified Status: Acute Assessment and Plan: probably this is multifactorial from colon cancer with recent chemotherapy continue supportive care, fluids and encourage to eat, also supplements egd tomorrow to rule out any organic component (2) Dehydration: Code(s): E86.0 - Dehydration Status: Acute Assessment and Plan: treated now (3) Malnutrition: Code(s): E46 - Unspecified protein-calorie malnutrition Status: Acute (4) Adult failure to thrive: Code(s): R62.7 - Adult failure to thrive Status: Acute (5) Malignant neoplasm of right colon: Code(s): C18.2 - Malignant neoplasm of ascending colon Status: Acute Assessment and Plan: treatment by oncology she is post rt hemicolectomy (6) Weight loss, unintentional: Code(s): R63.4 - Abnormal weight loss Status: Acute GI Consult Note Consult date/time: 07/30/23 15:37 Reason for consult: nausea, vomiting, anorexia, colon cancer HPI: Loly Duncan is a 82 year old female who was diagnosed with 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 She underwent surgery and also followed up with oncology and started on treatment. She came to the emergency department via private vehicle from home for evaluation of weakness. She was started on a daily oral chemotherapy medication and is supposed to have IV infusions every 3 weeks with her 1st infusion being on 07/11/2023, since infusion with extreme fatigue, nausea, and poor appetite. The oral chemotherapy has been on hold but this did not make any difference and she has not been able to hold much of anything and eating less, family concerned. She has lost 40 lb in last 3 months. Blood work with sodium 133, potassium 3.1, carbon dioxide 19, BUN 22, total protein 6.0, 4+ ketones in urine.? She is being admitted in this setting for hydration and supportive care. Patient says that nausea improved since admission, still poor appetite, denies dysphagia. Review of Systems Constitutional: Constitutional: Reports fatigue, Reports lethargy and Reports weight loss Eyes: Eyes: Denies blurry vision ENT: Reports Normal hearing present Cardiovascular: Cardiovascular: Denies chest pain Respiratory: Respiratory: Denies cough Gastrointestinal: Gastrointestinal: Reports nausea and Reports vomiting Genitourinary: Genitourinary: Denies hematuria Musculoskeletal: Musculoskeletal: Denies neck pain Integumentary/Breasts: Skin/Breast: Denies rash Neurologic: Denies confusion Psychiatric: Psychiatric: Denies behavioral changes [facility] Past Medical History Medical History (Updated 07/30/23 @ 13:10 by Jossie Ruiz PA-C) Colon cancer 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 Essential hypertension Hyperlipidemia Vitamin D deficiency Surgical History Surgical History (Updated 07/28/23 @ 14:07 by Vivi Martin PA-C) History of bilateral cataract extraction History of cholecystectomy History of right hemicolectomy (06/07/23) History of umbilical hernia repair Umbilical hernia repair with 6.6 cm Parietex underlay mesh Family History Family History Mother Family history of dementia Hypertension Carcinoma of colon Father Hypertension Social History Social History (Updated 07/28/23 @ 14:07 by Vivi Martin PA-C) Social History: Surrogate medical decision maker: Code status: Full code. Smoking status: Never smoker Second hand tobacco smoke exposure: No Alcohol intake: unknown Alcohol use details: Occasional, at holidays. Substance use: never Substance use type: does not use Lack of Transportation: No Lack of Food: Kai
--- NOTE | 2023-07-30 17:29 | PDONCCN ---
HPI - Date of Consult Date/Time: 07/30/23 17:29 Requesting Physician: Chandan Pool MD Primary Care Provider: Denia Kincaid MD - Consult Narrative Reason for consult: Colon cancer Narrative: Loly Duncan is a 82 year old female with diagnosis of T3 N1 M0 stage III adenocarcinoma of colon status post right-sided hemicolectomy done on June 07, 2023. Patient started adjuvant chemotherapy with CAPOX regimen and received cycle 1 of chemotherapy with oxaliplatin on July 10. She was only able to tolerate Xeloda for 1 week duration and discontinued due to loss of appetite and significant amount of weight loss. She came into the hospital with tiredness and fatigue along with lethargic and poor oral intake. She is not able to keep the food down and has been dealing with some nausea vomiting. Denies any diarrhea. She has mild neuropathy. CT abdomen and pelvis was ordered that showed enterocolitis. She has lost significant amount of weight recently. 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 Essential hypertension Hyperlipidemia Vitamin D deficiency Surgical History: Surgical History (Last Updated 07/28/23 @ 14:07 by Vivi Martin PA-C) History of bilateral cataract extraction History of cholecystectomy History of right hemicolectomy Onset Date: 06/07/23 History of umbilical hernia repair Umbilical hernia repair with 6.6 cm Parietex underlay mesh Family History: Family History (Last Reviewed 07/28/23 @ 14:07 by Vivi Martin PA-C) Mother Family history of dementia Hypertension Carcinoma of colon Father Hypertension - Social History Social History: Social History (Last Updated 07/28/23 @ 14:07 by Vivi Martin PA-C) Alcohol Use: Alcohol intake: unknown Alcohol use details: Occasional, at holidays. Substance Use: Substance use: never Substance use type: does not use Others: Spiritual care concerns: No Living Arrangements: Living arrangements: with family Oppucation/Education: Occupation/Education: retired Smoking Status: Smoking status: Never smoker Second hand tobacco smoke exposure: No Social Determinants of Health: Has the Lack of Transportation Kept You From Medical Appointments or From Getting Medications?: No Within the Past 12 Months, Were You Worried Whether Your Food Would Run Out Before You Got Money to Buy More?: Never True What is Your Housing Situation Today?: I Have Housing Are You Worried That in the Next 2 Months, You May Not Have Your Own Housing to Live In?: No Do You Have Trouble Paying Your Heating Or Electricity Bill?: No Do You Have Trouble Paying For Medicines?: No Are You Currently Unemployed and Looking for Work?: No Highest Level of Education Completed: High School Diploma/GED Do You Have Trouble With Childcare or the Care of a Family Member?: No Exam - Vital Signs Vital Signs - 24 hr 07/29/23 21:25 07/29/23 20:00 07/30/23 05:49 Temperature 36.4 C 36.8 C Pulse Rate 83 83 81 Respiratory Rate 18 18 18 Blood Pressure 110/64 116/59 L Pulse Oximetry 99 99 100 Oxygen Delivery Room Air 07/30/23 08:00 07/30/23 14:00 Temperature 36.8 C Pulse Rate 80 Respiratory Rate 18 Blood Pressure 103/52 L Pulse Oximetry 100 100 Oxygen Delivery Room Air - Exam HEENT: EOMI, PERRLA Neck: supple Lungs: clear to auscultation, normal air movement Heart: no murmurs, gallops, or rubs, regular rhythm, regular rate Abdomen: abdomen soft, non-distended, normal bowel sounds Extremities: normal pulses
[2023-07-30 21:00] VITALS: BP 101/57; PULSE 84; RESP 21; TEMP 36.7; O2SAT 100
[2023-07-31] VITALS (7 sets, daily range): BP systolic 101–120; BP diastolic 61–71; PULSE 66–88; RESP 16–22; TEMP 36.2–36.8; O2SAT 90–100
[2023-07-31 05:32] LABS: Hematocrit 29.7 % (37.0-47.0); Hemoglobin 9.8 g/dL (12.0-15.0); Mean Corpuscular Hemoglobin 30.1 pg (26-34); Mean Corpuscular Volume 91.1 fl (80-100); Mean Platelet Volume 8.8 fl (7.4-10.4); Platelet Count Result 301 k/mm3 (150-375); Red Blood Count 3.26 M/mm3 (4.2-5.4); Red Cell Distribution Width 15.4 % (11.5-14.5); White Blood Count 7.6 K/mm3 (4.5-10.0)
[2023-07-31 05:43] LABS: Alanine Aminotransferase 12 U/L (6-35); Albumin Level 2.1 g/dL (3.5-5.1); Alkaline Phosphatase 45 U/L (38-126); Anion Gap 7 mmol/L (8-16); Aspartate Amino Transferase 17 U/L (14-36); Bilirubin,Total 0.3 mg/dL (0.2-1.3); Blood Urea Nitrogen 19 mg/dL (7-17); Carbon Dioxide 20 mmol/L (22-30); Chloride 106 mmol/L (98-107); Estimated CRCL calculation 40 ml/min; Estimated Glomerular Filt Rate > 60; Glucose 83 mg/dL (65-110); Potassium 3.3 mmol/L (3.4-5.0); Sodium 133 mmol/L (137-145)
[2023-07-31 09:41] LABS: Toxigenic C. Diff NEGATIVE (NEGATIVE)
[2023-07-31] MEDS: LACTATED RINGERS 1,000 ML 150 ML IV CONT (11:13)
[2023-07-31] MEDS: ceFAZolin 1 GM/NS 50 ML 1 GM/50 ML BAG IVPB (11:21)
[2023-07-31 11:48] LABS: Phosphorus 2.8 mg/dL (2.5-4.5)
--- NOTE | 2023-07-31 13:33 | PM.IMPN ---
Progress Note: A&P Assessment and Plan (1) Malnutrition: Code(s): E46 - Unspecified protein-calorie malnutrition Status: Acute Assessment and Plan: Severe malnutrition diagnosed back in May 2023. Will get another dietary evaluation. Discussed with family that if patient cannot sustain life with her current diet and feeding tube will be the next step. She is on appetite stimulant, Megace Continue Megace 20 mg b.i.d. GI consulted due to early satiety and significant weight loss since March (50 lb). EGD performed today and revealed gastritis. Family decided to go ahead and placed G-tube due to malnutrition status. Patient was agreeable to this. Discussed with both GI and dietary. (2) Colon cancer: Qualifiers: Colon location: ascending Qualified Code(s): C18.2 - Malignant neoplasm of ascending colon Code(s): C18.9 - Malignant neoplasm of colon, unspecified Status: Acute Assessment and Plan: She received her 1st chemotherapy infusion on 07/11/2023 at which time she was also started on oral chemotherapy pills. Both of these have been placed on hold per Dr. Greenberg given her profound weakness, fatigue, and lack of appetite/oral intake. Oncology consulted. CT abdomen and pelvis ordered due to lack of appetite and revealed enterocolitis. Is likely related to patient's cancer due to her not having any abdominal pain, a white blood cell count or diarrhea. Oncology recommended GI consult due to nutrition status. (3) Dehydration: Code(s): E86.0 - Dehydration Status: Resolved Assessment and Plan: She endorses poor appetite with limited oral intake since receiving chemotherapy on 07/11/2023. Family members have encouraged her to drink protein shakes though she only consumes very small amounts. Concentrated urine with 4+ ketones. D5 normal saline discontinued and patient's labs stabilized. Resolved (4) Electrolyte abnormality: Code(s): E87.8 - Other disorders of electrolyte and fluid balance, not elsewhere classified Status: Resolved Assessment and Plan: Sodium and potassium are low. Replace potassium and monitor. IV fluids discontinued. Resolved Subjective Date/time seen: 07/31/23 13:33 Interval history: Had discussion with family and patient about G-tube placement. Discussed with them that if there is nothing anatomically wrong in her systemic and duodenum that I would suggest a G-tube placement. Patient and family were agreeable to this. Discussed with them that it is important that her adequate nutrition is provided while patient is undergoing chemotherapy. Until patient can regain her appetite she will need tube feedings. Patient, patient's and daughters are all in agreement with this. Had discussion with GI and dietary and they are both on page with this. EGD was performed and revealed gastritis the say a G-tube was placed. Will start tube feedings later in the evening. Exam Narrative: GENERAL: Comfortable, no acute distress, frail HENMT: moist mucous membranes EYES: EOM intact b/l NECK: no lymphadenopathy RESPIRATORY: clear to auscultation CARDIO: RRR GI: soft, nontender, bowel sounds present SKIN: no rashes EXTREMITIES: no edema, redness or tenderness Objective Data Vital Signs Vital Signs: Vital Signs - 24 hr 07/30/23 14:00 07/30/23 20:00 07/30/23 21:00 Temperature 98.2 F 98.0 F Pulse Rate 80 84 Respiratory Rate 18 21 H Blood Pressure 103/52 L 101/57 L Pulse Oximetry 100 100 Oxygen Delivery Room Air 07/31/23 06:00 07/31/23 11:11 07/31/23 11:46 Temperature 97.2 F L 97.5 F L Pulse Rate 81 88 69 Respiratory Rate 20 16 22 H Blood Pressure 120/71 102/67 101/67 Pulse Oximetry 99 100 100 Oxygen Delivery Room Air Room Air 07/31/23 11:56 07/31/23 12:04 07/31/23 12:51 Temperature 98.1 F Pulse Rate 68 66 69 Respiratory Rate 20 20 18 Blood Pressur
--- NOTE | 2023-07-31 13:37 | PCNFU ---
Nutrition Follow-Up Complete: Severe protein calorie malnutrition related to chronic colon cancer, loss of appetite, vomiting as evidenced by inadequate PO intake <75% needs >1 month; weight loss 30%/7 months; severe muscle wasting and fat loss. Goal: Meet estimated nutrition needs Maintain weight Patient is progressing towards goal. We will continue current goal. Pt current nutrition is Regular with Ensure compact and tube feedings of Jevity 1.5. Last recorded weight is 53.5 kg, up from 51 kg on admit. Bowel Motility: +BM reported 07/31 Labs Reviewed:BUN 19, K 3.3,Alb 2.1,Ca 8.0,Na 133 Meds Noted:Megace, Zofran Skin: WNL Additional Notes: Patient had been NPO for EGD/PEG placement today. Plans for tube feedings to start at 1700 hours of Jevity 1.5 at 10 ml/hr. Recommend trickle feedings at this time due to possible refeeding syndrome. Flush 30 ml q 4 hours. Ca 8.0,K 3.3, Mg and PO4 WNL. If patient tolerates tube feedings recommend goal rate of continuous feedings at 45 ml/hr. Bolus feedings of Jevity 1.5 or equivalent-340 ml 3 x per day. 50 ml flush before and after feedings. Monitoring plan of care, intakes, labs, weights, supplement tolerance every Sunday and Sunday.
[2023-07-31] MEDS: MORPHINE SULFATE (*CRX) 2 MG/ML INJ 1 MG IV PUSH (14:54)
[2023-07-31] MEDS: FERROUS SULFATE 325 MG TABLET DR PO (17:31)
[2023-07-31] MEDS: MEGESTROL ACETATE (*CHEMO) 20 MG TABLET PO (17:31)
[2023-07-31] MEDS: diphenhydrAMINE HCl CAP 25 MG CAPSULE PO (21:44)
[2023-07-31] MEDS: PANTOPRAZOLE 40 MG TABLET PO (21:45)
[2023-07-31] MEDS: HYDROcodone/acetaminophen (*CRX) 5-325 MG TABLET 1 TAB PO (21:45)
[2023-08-01 05:36] LABS: Hematocrit 30.7 % (37.0-47.0); Mean Corpuscular HGB Conc 32.6 g/dl (32-36); Mean Corpuscular Hemoglobin 29.9 pg (26-34); Mean Corpuscular Volume 91.9 fl (80-100); Platelet Count Result 325 k/mm3 (150-375); Red Blood Count 3.34 M/mm3 (4.2-5.4); Red Cell Distribution Width 15.6 % (11.5-14.5); White Blood Count 6.1 K/mm3 (4.5-10.0)
[2023-08-01 05:51] LABS: Anion Gap 8 mmol/L (8-16); Blood Urea Nitrogen 18 mg/dL (7-17); Calcium 8.1 mg/dL (8.4-10.2); Carbon Dioxide 21 mmol/L (22-30); Chloride 106 mmol/L (98-107); Estimated CRCL calculation 55 ml/min; Estimated Glomerular Filt Rate > 60; Glucose 102 mg/dL (65-110); Potassium 3.4 mmol/L (3.4-5.0); Sodium 135 mmol/L (137-145)
[2023-08-01 06:00] VITALS: BP 107/52; PULSE 72; RESP 20; TEMP 36.7; O2SAT 99
[2023-08-01] MEDS: ENOXAPARIN 40 MG/0.4 ML SYRINGE SUB-Q (08:02)
[2023-08-01] MEDS: MAGNESIUM OXIDE 200 MG TABLET PO (08:03)
[2023-08-01] MEDS: ERGOCALCIFEROL 50,000 UNITS CAPSULE 50000 UNITS PO (08:03)
[2023-08-01] MEDS: PANTOPRAZOLE 40 MG TABLET PO ×2 (08:03→20:59)
[2023-08-01] MEDS: MEGESTROL ACETATE (*CHEMO) 20 MG TABLET PO ×2 (08:03→16:07)
[2023-08-01] MEDS: FERROUS SULFATE 325 MG TABLET DR PO ×2 (08:03→16:07)
--- NOTE | 2023-08-01 10:08 | P.PNIM_ITS ---
Progress Note: A&P Assessment and Plan (1) Malnutrition: Code(s): E46 - Unspecified protein-calorie malnutrition Status: Acute Assessment and Plan: 07/31/23: * Severe malnutrition diagnosed back in May 2023. * Will get another dietary evaluation. * Discussed with family that if patient cannot sustain life with her current diet and feeding tube will be the next step. * She is on appetite stimulant, Megace * Continue Megace 20 mg b.i.d. * GI consulted due to early satiety and significant weight loss since March (50 lb). * EGD performed today and revealed gastritis. Family decided to go ahead and placed G-tube due to malnutrition status. Patient was agreeable to this. Discussed with both GI and dietary. 08/01/23: * Post op day 1 G-tube placement * Sourcing Assistant recommending transition to bolus feeds tomorrow as long as tolerating continuous feeds, currently at 40ml/hr with a goal of 45ml/hr. * Continue Megace and encouraged PO intake * GI following * Discuss outpatient needs with care management in the morning. (2) Colon cancer: Qualifiers: Colon location: ascending Qualified Code(s): C18.2 - Malignant neoplasm of ascending colon Code(s): C18.9 - Malignant neoplasm of colon, unspecified Status: Acute Assessment and Plan: 07/31/23: * She received her 1st chemotherapy infusion on 07/11/2023 at which time she was also started on oral chemotherapy pills. Both of these have been placed on hold per Dr. Greenberg given her profound weakness, fatigue, and lack of appetite/oral intake. * Oncology consulted. * CT abdomen and pelvis ordered due to lack of appetite and revealed enterocolitis. Is likely related to patient's cancer due to her not having any abdominal pain, a white blood cell count or diarrhea. * Oncology recommended GI consult due to nutrition status. 08/01/23: * Patient has G-tube in place with continuous tube feeding. She is tolerating advancement well. * Encouraged po intake * GI following * Oncology following (3) Dehydration: Code(s): E86.0 - Dehydration Status: Resolved Assessment and Plan: 07/31/23: * She endorses poor appetite with limited oral intake since receiving chemotherapy on 07/11/2023. Family members have encouraged her to drink protein shakes though she only consumes very small amounts. * Concentrated urine with 4+ ketones. * D5 normal saline discontinued and patient's labs stabilized. 08/01/23: * Encourage increase in her intake of food and fluid * Currently on tube feeding via G tube, see above * continue to monitor labs (4) Electrolyte abnormality: Code(s): E87.8 - Other disorders of electrolyte and fluid balance, not elsewhere classified Status: Resolved Assessment and Plan: 07/31/23: * Sodium and potassium are low. * Replace potassium and monitor. * IV fluids discontinued. 08/01/23: * Na+ 135, K+ 3.4 * No replacement needed * continue to trend labs Time Spent With Patient Time with patient: Greater than 35 minutes Subjective Date/time seen: 08/01/23 10:08 Interval history: 07/31/23:( copied from chart) Had discussion with family and patient about G-tube placement. Discussed with them that if there is nothing anatomically wrong in her systemic and duodenum that I would suggest a G-tube placement. Patient and family were agreeable to this. Discussed with them that it is important that her adequate nutrition is provided while patient
--- NOTE | 2023-08-01 10:08 | PM.IMPN ---
Progress Note: A&P Assessment and Plan (1) Malnutrition: Code(s): E46 - Unspecified protein-calorie malnutrition Status: Acute Assessment and Plan: 07/31/23: Severe malnutrition diagnosed back in May 2023. Will get another dietary evaluation. Discussed with family that if patient cannot sustain life with her current diet and feeding tube will be the next step. She is on appetite stimulant, Megace Continue Megace 20 mg b.i.d. GI consulted due to early satiety and significant weight loss since March (50 lb). EGD performed today and revealed gastritis. Family decided to go ahead and placed G-tube due to malnutrition status. Patient was agreeable to this. Discussed with both GI and dietary. 08/01/23: Post op day 1 G-tube placement Maintenance Coordinator recommending transition to bolus feeds tomorrow as long as tolerating continuous feeds, currently at 40ml/hr with a goal of 45ml/hr. Continue Megace and encouraged PO intake GI following Discuss outpatient needs with care management in the morning. (2) Colon cancer: Qualifiers: Colon location: ascending Qualified Code(s): C18.2 - Malignant neoplasm of ascending colon Code(s): C18.9 - Malignant neoplasm of colon, unspecified Status: Acute Assessment and Plan: 07/31/23: She received her 1st chemotherapy infusion on 07/11/2023 at which time she was also started on oral chemotherapy pills. Both of these have been placed on hold per Dr. Greenberg given her profound weakness, fatigue, and lack of appetite/oral intake. Oncology consulted. CT abdomen and pelvis ordered due to lack of appetite and revealed enterocolitis. Is likely related to patient's cancer due to her not having any abdominal pain, a white blood cell count or diarrhea. Oncology recommended GI consult due to nutrition status. 08/01/23: Patient has G-tube in place with continuous tube feeding. She is tolerating advancement well. Encouraged po intake GI following Oncology following (3) Dehydration: Code(s): E86.0 - Dehydration Status: Resolved Assessment and Plan: 07/31/23: She endorses poor appetite with limited oral intake since receiving chemotherapy on 07/11/2023. Family members have encouraged her to drink protein shakes though she only consumes very small amounts. Concentrated urine with 4+ ketones. D5 normal saline discontinued and patient's labs stabilized. 08/01/23: Encourage increase in her intake of food and fluid Currently on tube feeding via G tube, see above continue to monitor labs (4) Electrolyte abnormality: Code(s): E87.8 - Other disorders of electrolyte and fluid balance, not elsewhere classified Status: Resolved Assessment and Plan: 07/31/23: Sodium and potassium are low. Replace potassium and monitor. IV fluids discontinued. 08/01/23: Na+ 135, K+ 3.4 No replacement needed continue to trend labs Time Spent With Patient Time with patient: Greater than 35 minutes Subjective Date/time seen: 08/01/23 10:08 Interval history: 07/31/23:( copied from chart) Had discussion with family and patient about G-tube placement. Discussed with them that if there is nothing anatomically wrong in her systemic and duodenum that I would suggest a G-tube placement. Patient and family were agreeable to this. Discussed with them that it is important that her adequate nutrition is provided while patient is undergoing chemotherapy. Until patient can regain her appetite she will need tube feedings. Patient, patient's and daughters are all in agreement with this. Had discussion with GI and dietary and they are both on page with this. EGD was performed and revealed gastritis the say a G-tube was placed. Will start tube feedings later in the evening. 07/31/23: On examination patient is alert and oriented x4, resting in bed. Family at the bedside. VSS, she is afebrile, she is o
--- NOTE | 2023-08-01 10:51 | PCNFU ---
Nutrition Follow-Up Complete: Severe protein calorie malnutrition related to chronic colon cancer, loss of appetite, vomiting as evidenced by inadequate PO intake <75% needs >1 month; weight loss 30%/7 months; severe muscle wasting and fat loss. goal: Meet estimated nutrition needs Maintain weight Patient is progressing towards goal. We will continue current goal. Pt current nutrition is Jevity 1.2 at 20 ml/hr. Last recorded weight is 50.2 kg. Bowel Motility:Last reported BM 07/31 Labs Reviewed:BUN 19, K 3.3,Na 133, Alb 2.1 Meds Noted:Lovenox, Megace, Protonix, Ferrous Sulfate, Mag ox. Skin: WNL Additional Notes: Spoke with patient and family today as well as Hospitalist. Tube feedings overnight-tolerated. Plans for tube feedings to increase by 10 ml q 2 hours to goal rate of 45 ml/hr. Tube feedings at goal rate providing 1485 kcals/63 gms protein/752 ml water. Meeting 97% kcal needs at 30 kcal/kg and 100% protein needs at 1.2-1.4 gm/kg. Plans for tube feedings for home to change to bolus feeding of Jevity 1.5 or equivalent of 340 ml 3 x per day with flush 50 ml before and 50 ml after feedings. Bolus feedings are medically necessary due to limited po intake and weight loss reported-severe malnutrition. Regular tray was given for breakfast today, patient was eating bites of her eggs and drank half her ensure on tray last night. PO intake is encouraged. Agree with diet orders. Monitoring plan of care, intakes, labs, weights, supplement tolerance Follow up every Sunday and Sunday
[2023-08-01 14:01] VITALS: BP 102/65; PULSE 91; RESP 16; TEMP 36.1; O2SAT 100
--- NOTE | 2023-08-01 14:03 | WPDGIPROGNO ---
Progress Note: A&P Assessment and Plan (1) Malnutrition: Code(s): E46 - Unspecified protein-calorie malnutrition Status: Acute Assessment and Plan: patient with weight loss and anorexia she eventually can go home with tube feeding to reach nutrition goal, she can also drink/eat for pleasure (2) Adult failure to thrive: Code(s): R62.7 - Adult failure to thrive Status: Acute (3) Dehydration: Code(s): E86.0 - Dehydration Status: Acute Assessment and Plan: treated (4) Gastritis and duodenitis: Code(s): K29.90 - Gastroduodenitis, unspecified, without bleeding Status: Acute Assessment and Plan: found yesterday started on ppi (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 - Malignant neoplasm of cecum Status: Acute Assessment and Plan: will continue treatment by oncology as outpatient Subjective Date/time seen: 08/01/23 14:03 Interval history: g-tube placed yesterday and she is tolerating tube feeding, family is happy with results patient earlier had some coffee she is in good spirits Review of Systems Review of Systems: All systems reviewed & are unremarkable except as noted in HPI and below Exam Const: General: comfortable and no acute distress HENMT: Face/Nose/Sinus: Normal nares present Eyes: Sclera: sclerae normal Neck: Neck: supple Resp: Effort & Inspection: normal respiratory effort Cardio: Rate: regular rate GI: GI Palp: Yes Soft to palpation and No Tenderness to palpation present (GI) Other: g-tube in place Skin: General skin exam: normal color Neuro: Speech: normal speech Extrem: General: normal to inspection Psych: Mental Status: mental status grossly normal Objective Data Vital Signs Vital Signs: Vital Signs - 24 hr 07/31/23 22:00 07/31/23 20:00 08/01/23 06:00 Temperature 98.2 F 98.0 F Pulse Rate 77 72 Respiratory Rate 20 20 Blood Pressure 110/62 107/52 L Pulse Oximetry 98 99 Oxygen Delivery Room Air 08/01/23 08:00 08/01/23 14:01 Temperature 97.0 F L Pulse Rate 91 Respiratory Rate 16 Blood Pressure 102/65 Pulse Oximetry 100 Oxygen Delivery Room Air Intake/Output Intake/Output: Intake & Output 07/29/23 07/30/23 07/31/23 08/01/23 23:59 23:59 23:59 23:59 Intake Total 1480 440 750 283 Output Total 500 3 Balance 980 440 747 283 Meds/Results Medications: Active Medications Generic Name Dose Route Start Last Admin Trade Name Freq PRN Reason Stop Dose Admin Acetaminophen 650 mg 07/28/23 14:13 07/29/23 08:35 Acetaminophen 325 Mg Tablet PO 650 mg Q6H PRN Administration Mild Pain (1-3) or Fever Hydrocodone Bitart/Acetaminophen 1 tab 07/31/23 14:45 07/31/23 21:45 Hydrocodone/Acetaminophen (*Crx) 5-325 Mg Tablet PO 1 tab Q6H PRN Administration Pain Rated 4-6 Diphenhydramine HCl 25 mg 07/28/23 17:37 07/31/23 21:44 Diphenhydramine Hcl Cap 25 Mg Capsule PO 25 mg HS PRN Administration Sleep Enoxaparin Sodium 40 mg 07/28/23 14:35 08/01/23 08:02 Enoxaparin 40 Mg/0.4 Ml Syringe SUB-Q 40 mg DAILY REGINO Administration Ergocalciferol 50,000 units 07/30/23 09:00 08/01/23 08:03 Ergocalciferol 50,000 Units Capsule PO 50,000 units DAILY REGINO Administration Ferrous Sulfate 325 mg 07/29/23 09:00 08/01/23 08:03 Ferrous Sulfate [address] PO 08/28/23 08:59 325 mg BID REGINO Administration Magnesium Oxide 200 mg 07/29/23 09:00 08/01/23 08:03 Magnesium Oxide 200 Mg Tablet PO 200 mg DAILY REGINO Administration Megestrol Acetate 20 mg 07/29/23 17:00 08/01/23 08:03 Megestrol Acetate (*Chemo) 20 Mg Tablet PO 20 mg BID REGINO Administration Morphine Sulfate 1 mg 07/31/23 14:45 07/31/23 14:54 Morphine Sulfate (*Crx) 2 Mg/Ml Inj IV PUSH 1 mg Q4H PRN Administration pain 7-10 Ondansetron HCl 4 mg 07/28/23 14:13 07/29/23 13:05 Ondansetron Inj 4 Mg/2
[2023-08-01] MEDS: HYDROcodone/acetaminophen (*CRX) 5-325 MG TABLET 1 TAB PO (15:58)
[2023-08-01] MEDS: diphenhydrAMINE HCl CAP 25 MG CAPSULE PO (20:59)
[2023-08-01 21:02] VITALS: BP 115/63; PULSE 77; RESP 18; TEMP 37.2; O2SAT 99
[2023-08-02 04:49] VITALS: BP 118/60; PULSE 84; RESP 18; TEMP 36.2; O2SAT 99
[2023-08-02 06:25] LABS: Hematocrit 32.9 % (37.0-47.0); Hemoglobin 10.8 g/dL (12.0-15.0); Mean Corpuscular HGB Conc 32.8 g/dl (32-36); Mean Corpuscular Hemoglobin 29.9 pg (26-34); Mean Corpuscular Volume 91.1 fl (80-100); Mean Platelet Volume 8.7 fl (7.4-10.4); Platelet Count Result 338 k/mm3 (150-375); Red Blood Count 3.61 M/mm3 (4.2-5.4); Red Cell Distribution Width 15.3 % (11.5-14.5); White Blood Count 9.8 K/mm3 (4.5-10.0)
[2023-08-02 06:36] LABS: Alanine Aminotransferase 21 U/L (6-35); Albumin Level 2.4 g/dL (3.5-5.1); Alkaline Phosphatase 52 U/L (38-126); Anion Gap 8 mmol/L (8-16); Aspartate Amino Transferase 22 U/L (14-36); Bilirubin,Total 0.3 mg/dL (0.2-1.3); Blood Urea Nitrogen 17 mg/dL (7-17); Carbon Dioxide 20 mmol/L (22-30); Chloride 107 mmol/L (98-107); Estimated CRCL calculation 55 ml/min; Estimated Glomerular Filt Rate > 60; Glucose 103 mg/dL (65-110); Potassium 3.8 mmol/L (3.4-5.0); Sodium 135 mmol/L (137-145)
[2023-08-02 07:43] LABS: Band Neutrophils Percent 20 % (0-6); Eosinophils Absolute Manual 0.09 K/mm3 (0.02-0.5); Eosinophils Percent Manual 1 % (0-4); Lymphocytes Absolute Manual 1.37 K/mm3 (1.1-4.5); Lymphocytes Percent Manual 14 % (18-44); Monocytes Absolute Manual 1.66 K/mm3 (0.1-0.90); Monocytes Percent Manual 17 % (3-9); Neutrophils Absolute Manual 6.66 K/mm3 (1.7-7.2); Neutrophils Percent Manual 48 % (46-73); Total Cells Counted 100
[2023-08-02 07:44] LABS: Burr Cells 1+ (NORMAL); Hypochromasia 1+ (NORMAL); Ovalocytes 1+ (NORMAL); Platelet Estimate Adequate (Adequate)
[2023-08-02 07:45] LABS: Schistocytes None Seen (NORMAL)
[2023-08-02] MEDS: ENOXAPARIN 40 MG/0.4 ML SYRINGE SUB-Q (08:16)
[2023-08-02] MEDS: ERGOCALCIFEROL 50,000 UNITS CAPSULE 50000 UNITS PO (08:17)
[2023-08-02] MEDS: PANTOPRAZOLE 40 MG TABLET PO ×2 (08:17→21:46)
[2023-08-02] MEDS: FERROUS SULFATE 325 MG TABLET DR PO ×2 (08:17→17:37)
[2023-08-02] MEDS: MEGESTROL ACETATE (*CHEMO) 20 MG TABLET PO ×2 (08:17→17:37)
[2023-08-02] MEDS: MAGNESIUM OXIDE 200 MG TABLET PO (08:17)
--- NOTE | 2023-08-02 08:30 | P.PNIM_ITS ---
Progress Note: A&P Assessment and Plan (1) Malnutrition: Code(s): E46 - Unspecified protein-calorie malnutrition Status: Acute Assessment and Plan: 07/31/23: * Severe malnutrition diagnosed back in May 2023. * Will get another dietary evaluation. * Discussed with family that if patient cannot sustain life with her current diet and feeding tube will be the next step. * She is on appetite stimulant, Megace * Continue Megace 20 mg b.i.d. * GI consulted due to early satiety and significant weight loss since March (50 lb). * EGD performed today and revealed gastritis. Family decided to go ahead and placed G-tube due to malnutrition status. Patient was agreeable to this. Discussed with both GI and dietary. 08/01/23: * Post op day 1 G-tube placement * Cut Lace Machine Operator recommending transition to bolus feeds tomorrow as long as tolerating continuous feeds, currently at 40ml/hr with a goal of 45ml/hr. * Continue Megace and encouraged PO intake * GI following * Discuss outpatient needs with care management in the morning. 08/02/23: * Patient tolerating continuous tube feedings at 45 mil per hour throughout the night with no nausea, vomiting, or abdominal pain/distension. Patient had 170 ml residual x1. We will go ahead and start her on bolus feedings today to see how well she tolerates. If she tolerates bolus feeds we may potentially be able to discharge her tomorrow. * Continue Megace and encourage PO intake. * Encourage ambulation and out of bed to chair * GI following * Dietitian following * Case management working on outpatient needs will touch base with her today. (2) Colon cancer: Qualifiers: Colon location: ascending Qualified Code(s): C18.2 - Malignant neoplasm of ascending colon Code(s): C18.9 - Malignant neoplasm of colon, unspecified Status: Acute Assessment and Plan: 07/31/23: * She received her 1st chemotherapy infusion on 07/11/2023 at which time she was also started on oral chemotherapy pills. Both of these have been placed on hold per Dr. Greenberg given her profound weakness, fatigue, and lack of appetite/oral intake. * Oncology consulted. * CT abdomen and pelvis ordered due to lack of appetite and revealed enterocolitis. Is likely related to patient's cancer due to her not having any abdominal pain, a white blood cell count or diarrhea. * Oncology recommended GI consult due to nutrition status. 08/01/23: * Patient has G-tube in place with continuous tube feeding. She is tolerating advancement well. * Encouraged po intake * GI following * Oncology following 08/02/23: * See above (3) Dehydration: Code(s): E86.0 - Dehydration Status: Resolved Assessment and Plan: 07/31/23: * She endorses poor appetite with limited oral intake since receiving chemotherapy on 07/11/2023. Family members have encouraged her to drink protein shakes though she only consumes very small amounts. * Concentrated urine with 4+ ketones. * D5 normal saline discontinued and patient's labs stabilized. 08/01/23: * Encourage increase in her intake of food and fluid * Currently on tube feeding via G tube, see above * continue to monitor labs 08/02/23: * See above (4) Electrolyte abnormality: Code(s): E87.8 - Other disorders of electrolyte and fluid balance, not elsewhere classified Status: Resolved Assessment and Plan: 07/31/23: * Sodium and potassium are low. * Replace potassium and monitor. * IV fluids disco
--- NOTE | 2023-08-02 08:30 | PM.IMPN ---
Progress Note: A&P Assessment and Plan (1) Malnutrition: Code(s): E46 - Unspecified protein-calorie malnutrition Status: Acute Assessment and Plan: 07/31/23: Severe malnutrition diagnosed back in May 2023. Will get another dietary evaluation. Discussed with family that if patient cannot sustain life with her current diet and feeding tube will be the next step. She is on appetite stimulant, Megace Continue Megace 20 mg b.i.d. GI consulted due to early satiety and significant weight loss since March (50 lb). EGD performed today and revealed gastritis. Family decided to go ahead and placed G-tube due to malnutrition status. Patient was agreeable to this. Discussed with both GI and dietary. 08/01/23: Post op day 1 G-tube placement Equestrian Trainer recommending transition to bolus feeds tomorrow as long as tolerating continuous feeds, currently at 40ml/hr with a goal of 45ml/hr. Continue Megace and encouraged PO intake GI following Discuss outpatient needs with care management in the morning. 08/02/23: Patient tolerating continuous tube feedings at 45 mil per hour throughout the night with no nausea, vomiting, or abdominal pain/distension. Patient had 170 ml residual x1. We will go ahead and start her on bolus feedings today to see how well she tolerates. If she tolerates bolus feeds we may potentially be able to discharge her tomorrow. Continue Megace and encourage PO intake. Encourage ambulation and out of bed to chair GI following Dietitian following Case management working on outpatient needs will touch base with her today. (2) Colon cancer: Qualifiers: Colon location: ascending Qualified Code(s): C18.2 - Malignant neoplasm of ascending colon Code(s): C18.9 - Malignant neoplasm of colon, unspecified Status: Acute Assessment and Plan: 07/31/23: She received her 1st chemotherapy infusion on 07/11/2023 at which time she was also started on oral chemotherapy pills. Both of these have been placed on hold per Dr. Greenberg given her profound weakness, fatigue, and lack of appetite/oral intake. Oncology consulted. CT abdomen and pelvis ordered due to lack of appetite and revealed enterocolitis. Is likely related to patient's cancer due to her not having any abdominal pain, a white blood cell count or diarrhea. Oncology recommended GI consult due to nutrition status. 08/01/23: Patient has G-tube in place with continuous tube feeding. She is tolerating advancement well. Encouraged po intake GI following Oncology following 08/02/23: See above (3) Dehydration: Code(s): E86.0 - Dehydration Status: Resolved Assessment and Plan: 07/31/23: She endorses poor appetite with limited oral intake since receiving chemotherapy on 07/11/2023. Family members have encouraged her to drink protein shakes though she only consumes very small amounts. Concentrated urine with 4+ ketones. D5 normal saline discontinued and patient's labs stabilized. 08/01/23: Encourage increase in her intake of food and fluid Currently on tube feeding via G tube, see above continue to monitor labs 08/02/23: See above (4) Electrolyte abnormality: Code(s): E87.8 - Other disorders of electrolyte and fluid balance, not elsewhere classified Status: Resolved Assessment and Plan: 07/31/23: Sodium and potassium are low. Replace potassium and monitor. IV fluids discontinued. 08/01/23: Na+ 135, K+ 3.4 No replacement needed continue to trend labs 08/02/23: Sodium 135, potassium 3.8 No replacement needed Continue to trend labs Time Spent With Patient Time with patient: Greater than 35 minutes Subjective Date/time seen: 08/02/23 08:30 Interval history: 07/31/23:( copied from chart) Had discussion with family and patient about G-tube placement. Discussed with them that if there is nothing anatomically wrong i
[2023-08-02 14:00] VITALS: BP 98/64; PULSE 105; RESP 16; TEMP 36.6; O2SAT 100
[2023-08-02 21:46] VITALS: BP 111/58; PULSE 85; RESP 18; TEMP 36.8; O2SAT 99
[2023-08-02] MEDS: diphenhydrAMINE HCl CAP 25 MG CAPSULE PO (21:48)
[2023-08-03 04:12] VITALS: BP 108/63; PULSE 81; RESP 16; TEMP 36.6; O2SAT 100
[2023-08-03 07:14] LABS: Basophils Percent Auto 0.5 % (0.2-1.2); Eosinophils Absolute Auto 0.1 K/mm3 (0-0.3); Eosinophils Percent Auto 1.5 % (0-4.4); Hematocrit 29.9 % (37.0-47.0); Immature Granulocyte Absolute 0.07 K/mm3 (0.00-0.031); Immature Granulocyte Percent A 1.2 % (0-0.5); Lymphocytes Absolute Auto 1.37 K/mm3 (0.9-3.2); Lymphocytes Percent Auto 22.9 % (18.3-44.2); Mean Corpuscular HGB Conc 33.4 g/dl (32-36); Mean Corpuscular Hemoglobin 29.9 pg (26-34); Mean Corpuscular Volume 89.5 fl (80-100); Mean Platelet Volume 8.7 fl (7.4-10.4); Monocytes Absolute Auto 1.1 K/mm3 (0.1-0.6); Monocytes Percent Auto 17.5 % (2.6-8.5); Neutrophils Absolute Auto 3.4 K/mm3 (1.3-6.7); Neutrophils Percent Auto 56.4 % (45.5-73.1); Platelet Count Result 295 k/mm3 (150-375); Red Blood Count 3.34 M/mm3 (4.2-5.4); Red Cell Distribution Width 15.5 % (11.5-14.5)
[2023-08-03 07:28] LABS: Alanine Aminotransferase 16 U/L (6-35); Albumin Level 2.2 g/dL (3.5-5.1); Alkaline Phosphatase 47 U/L (38-126); Anion Gap 5 mmol/L (8-16); Aspartate Amino Transferase 17 U/L (14-36); Bilirubin,Total 0.3 mg/dL (0.2-1.3); Blood Urea Nitrogen 16 mg/dL (7-17); Calcium 8.1 mg/dL (8.4-10.2); Carbon Dioxide 24 mmol/L (22-30); Chloride 107 mmol/L (98-107); Estimated CRCL calculation 55 ml/min; Estimated Glomerular Filt Rate > 60; Glucose 95 mg/dL (65-110); Potassium 3.2 mmol/L (3.4-5.0); Sodium 136 mmol/L (137-145)
--- NOTE | 2023-08-03 08:33 | PM.DS ---
DS: Admitting Diagnosis Discharge Date 08/03/23 Admitting Diagnosis dehydration electrolyte abnormality colon cancer DS: Discharge Diagnosis Discharge Diagnosis (1) Malnutrition: Code(s): E46 - Unspecified protein-calorie malnutrition Status: Acute (2) Colon cancer: Qualifiers: Colon location: ascending Qualified Code(s): C18.2 - Malignant neoplasm of ascending colon Code(s): C18.9 - Malignant neoplasm of colon, unspecified Status: Acute (3) Dehydration: Code(s): E86.0 - Dehydration Status: Resolved (4) Electrolyte abnormality: Code(s): E87.8 - Other disorders of electrolyte and fluid balance, not elsewhere classified Status: Resolved DS: Summary Hospital Course Reason for hospitalization: dehydration electrolyte abnormality Hospital Course: This is an 82 year old female who presented to the hospital on 07/28/23 with generalized weakness. Patient has history of invasive adeno carcinoma in the colon and was started on daily oral chemotherapy medication and is supposed to have IV infusions every 3 weeks with her 1st infusion beginning on 07/11/2023. She started experiencing extreme fatigue, weakness, nausea, poor appetite after her infusion. In the last 3 months patient lost a total of 40 lb with 13 of those lb being in the last several weeks since the infusion. She came to the hospital for further evaluation and treatment. Workup in the hospital included some labs which showed a sodium level of 133, potassium 3.1, carbon dioxide 19, BUN 22, total protein is 6.0, albumin 3.1, with 4+ ketones in the urine. She was being admitted for hydration and supportive care. GI was consulted and oncology also following while inpatient. Patient continued to have poor intake requiring a G-tube placement with supplemental tube feeding. Labs today reveal white blood cell count of 6.0, hemoglobin 10.0, hematocrit 29.9, sodium 136, potassium 3.2, BUN 16, creatinine 0.5. Her vital signs are stable, she is afebrile, she is currently on room air. She denies any pain or discomfort at this time. She is stable for discharge. She will be going home on bolus tube feeds via G-tube, she was encouraged to increase her oral intake of food and fluid, and will follow-up with her primary care in 1 week. Status at Discharge Cognitive/behavioral status at discharge: Alert and oriented x4 Functional status at discharge: independent ambulation Overall status at discharge: patient is progressing back to baseline Time Spent with Patient Time attestation: Total time spent providing and/or coordinating discharge services: Time spent: Greater than 30 minutes Exam Narrative: General: In no acute distress, pleasant Head: atraumatic, no encephalopathy Eyes: EOMI, PERRLA, sclera clear ENT: moist mucous membranes, nasal passages clear Neck: supple, no JVD, no adenopathy, trachea midline Cardiac: Normal S1 and S2. No murmur, gallops or friction rubs, peripheral pulses intact. Respiratory: Lungs clear to auscultation, no adventitious lung sounds Gastrointestinal: soft, non-distended, non-tender, normoactive bowel sounds. : voiding without difficulty. Extremities: moves all extremities well, no edema, good ROM Skin: clean, dry, intact. No wounds or lesions. Neuro: Alert and oriented x4, cranial nerves intact, no neuro deficits. Psych: normal mood, normal affect, interactive DS: Data Data Completed and Pending Completed studies during hospitalization: Pending at discharge 07/31/23 11:46 Surgical [PTH] Routine Abdomen x-ray Chest/abdomen/pelvis CT Pending studies at discharge: None Labs on day of discharge: Labs from last 24 hours 08/03/23 07:03 WBC Pending RBC Pending Hgb Pending Hct Pending MCV Pending MCH Pending MCHC Pending RDW Pending Plt Count Pending MPV Pending Immature Gran % (Auto) Pending Neut % (Auto) Pending Lymph % (Auto) Pending [place] % (A
[2023-08-03] MEDS: PANTOPRAZOLE 40 MG TABLET PO (08:35)
[2023-08-03] MEDS: ENOXAPARIN 40 MG/0.4 ML SYRINGE SUB-Q (08:35)
[2023-08-03] MEDS: MAGNESIUM OXIDE 200 MG TABLET PO (08:35)
[2023-08-03] MEDS: ERGOCALCIFEROL 50,000 UNITS CAPSULE 50000 UNITS PO (08:35)
[2023-08-03] MEDS: FERROUS SULFATE 325 MG TABLET DR PO (08:35)
[2023-08-03] MEDS: MEGESTROL ACETATE (*CHEMO) 20 MG TABLET PO (08:35)
[2023-08-03 08:36] LABS: Hypochromasia 1+ (NORMAL); Platelet Estimate Adequate (Adequate); Schistocytes None Seen (NORMAL)
--- NOTE | 2023-08-03 11:46 | PCNFU ---
Nutrition Follow-Up Complete: Severe protein calorie malnutrition related to chronic colon cancer, loss of appetite, vomiting as evidenced by inadequate PO intake <75% needs >1 month; weight loss 30%/7 months; severe muscle wasting and fat loss. Goal: Meet estimated nutrition needs Maintain weight Pt current nutrition is Jevity 1.5 @ 45 ml h: 1485 kcal, 59 g protein, 752 ml free water. Continuous. Oral intake as tolerated Nutrition recommendation: Bolus feedings at home: Jevity 1.5: 340 ml TID. 1500 kcal, 65 g protein, 775 ml free water. Flush 50 ml before and after feedings. Oral intake as much as tolerated. Last recorded weight is 50.2 kg. Bowel Motility: +2 soft BMs today Labs Reviewed: Hgb 10.0, Hgb 29.9, Alb 2.2, Na 136, K+ 3.2, Cre 0.5 Meds Noted: Megace, protonix Skin: No pressure areas Additional Notes: Did not get served breakfast this morning because there was confusion with a regular diet + tube feeding diet. Lunch to be served soon. Oral intake improved. Pt found to have gastritis. Oral intake may improve at home, Reminded family to call MD if oral intake is improving, in case a tube feeding adjustment may be needed. Pt says she feels better. Ready to go home. Discharging today. Monitoring plan of care, intakes, labs, weights, supplement tolerance Follow up in 3 days or consult for immediate needs
--- NOTE | 2023-08-06 16:23 | PC.NURSE ---
RN opened this chart to look at discharge information as family called with questions about home health. RN gave them the number for home health off of the patient's discharge paperwork.
== END 2023-08-03 13:15 | disposition home health service (06) | DRG 374 ==
LOC: ANHED 10:40 → ANH3MEDSUR 14:34 → ANH3MED 15:34
PROVIDERS: Internal Medicine; Internal Medicine Critical Care Medicine; Internal Medicine Gastroenterology; Physician Assistant; Admitting Provider Internal Medicine; Emergency Provider Emergency Medicine; PCP Family Medicine; Visit Provider Nurse Practitioner Acute Care
PROC: 0DJ08ZZ Inspection of Upper Intestinal Tract, Via Natural or Artificial Opening Endoscopic (ICD-10-PCS; CPT 43235; principal; 2023-07-31 14:00)
PROC: 0DH63UZ Insertion of Feeding Device into Stomach, Percutaneous Approach (ICD-10-PCS; CPT 43246; 2023-07-31 14:00)
DX: C18.2 Malignant neoplasm of ascending colon (principal); E43 Unspecified severe protein-calorie malnutrition; E87.1 Hypo-osmolality and hyponatremia; E86.0 Dehydration; R62.7 Adult failure to thrive; E87.6 Hypokalemia; E78.5 Hyperlipidemia, unspecified; E55.9 Vitamin D deficiency, unspecified; I10 Essential (primary) hypertension; K21.00 Gastro-esophageal reflux disease with esophagitis, without bleeding; K29.70 Gastritis, unspecified, without bleeding; K29.80 Duodenitis without bleeding; Z68.20 Body mass index [BMI] 20.0-20.9, adult
CPT/HCPCS: 36415; 43246; 71260; 74018; 74177; 80048; 80053; 81001; 83690; 83735; 84100; 85025; 85027; 87493; 88305; 96361; 99285; A9270; G0378; J0690; J1650; J2270; J2405; J3480; J7040; J7042; J7120; Q9967

== ENCOUNTER 2023-08-10 12:55 | Outpatient (NON) | payer OTHER, SELFPAY ==
[2023-08-10 14:01] LABS: Mean Corpuscular HGB Conc 32.3 g/dl (32-36); Mean Corpuscular Hemoglobin 30.1 pg (26-34); Mean Corpuscular Volume 93.4 fl (80-100); Platelet Count Result 359 k/mm3 (150-375); Red Blood Count 3.32 M/mm3 (4.2-5.4); Red Cell Distribution Width 17.2 % (11.5-14.5); White Blood Count 7.7 K/mm3 (4.5-10.0)
[2023-08-10 14:12] LABS: Alanine Aminotransferase 34 U/L (6-35); Albumin Level 2.8 g/dL (3.5-5.1); Alkaline Phosphatase 49 U/L (38-126); Anion Gap 6 mmol/L (8-16); Aspartate Amino Transferase 31 U/L (14-36); Bilirubin,Total 0.3 mg/dL (0.2-1.3); Blood Urea Nitrogen 17 mg/dL (7-17); Calcium 8.4 mg/dL (8.4-10.2); Carbon Dioxide 23 mmol/L (22-30); Chloride 105 mmol/L (98-107); Estimated Glomerular Filt Rate > 60; Glucose 118 mg/dL (65-110); Potassium 4.1 mmol/L (3.4-5.0); Sodium 134 mmol/L (137-145)
== END 2023-08-10 12:56 | disposition home or self-care (01) ==
LOC: ANHLAB 12:57 → HOME HLTH 13:00
PROVIDERS: PCP Family Medicine; Visit Provider Family Medicine
DX: C18.2 Malignant neoplasm of ascending colon (principal); E46 Unspecified protein-calorie malnutrition; Z43.1 Encounter for attention to gastrostomy; E78.2 Mixed hyperlipidemia; D50.0 Iron deficiency anemia secondary to blood loss (chronic)
CPT/HCPCS: 80053; 85027

== ENCOUNTER 2023-09-18 16:03 | Emergency (ER) | payer OTHER, SELFPAY ==
[2023-09-18] VITALS (19 sets, daily range): BP systolic 118–142; BP diastolic 63–76; PULSE 69–80; RESP 12–22; TEMP 36.3; O2SAT 98–100
--- NOTE | ~2023-09-18 | CT_ITS ---
EXAMINATION: CTA brain carotid DATE: 09/18/2023 21:58 INDICATION: facial twitches TECHNIQUE: Computed tomographic angiography (CTA) of the head and neck was performed with 100 mL Omni paque-350 intravenous contrast. Automated exposure control and iterative reconstruction technique wer e employed. The dose-length product was 1049.77 mGy-cm. Maximum intensity projection and volume rend ered 3D-reconstructions were created by the technologist on a separate workstation. COMPARISON: CT brain, same date. FINDINGS: CTA HEAD: No large vessel occlusion, aneurysm, high flow vascular malformation, nidus or extravasation. Persist ent origin of the right MILLING SUPERVISOR. Hypoplastic distal segment of the intradural right vertebral arter y. Calcification of the cavernous carotids, without significant stenosis. Patent cerebral veins. Symm etric parenchymal enhancement. CTA NECK: Aortic arch and proximal great vessels: Mild atherosclerotic calcification at the aortic arch. Bovine arch anatomy. Right common carotid, carotid bifurcation, and internal carotid artery: Calcified plaque at the bifur cation.There is 0% stenosis of the proximal right internal carotid artery relative to normal distal a rtery lumen diameter (NASCET criteria). Left common carotid, carotid bifurcation, and internal carotid artery: Minimal plaque at the bifurcat ion.There is 0% stenosis of the proximal left internal carotid artery relative to normal distal arter y lumen diameter (NASCET criteria). Vertebral arteries: No significant plaque or stenosis. Left vertebral artery is dominant. Other findings: None. IMPRESSION: No large vessel occlusion. No severe carotid or vertebral artery stenosis. Reviewed, dictated and finalized at location K. ESE HERBALIST
--- NOTE | ~2023-09-18 | XR_ITS ---
EXAMINATION: XR chest 1V Exam Date/Time: 09/18/2023 16:30 METEOROLOGICAL ENGINEER HISTORY: weakness Comparison: 03/17/2020. RESULT: Lines, tubes, and devices: Midline G-tube. Cholecystectomy clips. Lungs and pleura: Senescent change, minimal bibasilar atelectasis/scar, granulomatous calcification, otherwise clear. Cardiomediastinal silhouette: Stable. Other: No acute osseous or upper abdominal finding. IMPRESSION: No acute cardiopulmonary process. Reviewed, dictated and finalized at location K. OROLOGICAL ENGINEER
--- NOTE | ~2023-09-18 | CT_ITS ---
EXAMINATION: CT brain wo con DATE: 09/18/2023 16:31 INDICATION: right side facial twitch/garbled speech . TECHNIQUE: Computed tomography (CT) of the head was performed without intravenous contrast. The mA wa s adjusted according to patient size. Iterative reconstruction technique was employed. The dose-lengt h product was 605.33 mGy-cm. COMPARISON: None. FINDINGS: No acute intracranial hemorrhage or extra-axial fluid collection. No hydrocephalus, mass, or herniation. No acute ischemic infarct. Unremarkable dural venous sinus attenuation. No acute osseous abnormality. Hyperostosis. Mucosal thickening and sclerosis of the left maxillary sinus, the remaining aerated spaces are clear. Mild atrophy and chronic white matter change. Atherosclerotic intracranial calcification. Bilateral l ens replacements. IMPRESSION: No acute intracranial process. Chronic left maxillary sinusitis. Reviewed, dictated and finalized at location [facility] [facility] [employer]
[2023-09-18 16:10] LABS: Glucose Point of Care 101 mg/dl (65-105)
--- NOTE | 2023-09-18 16:12 | ECG_ITS ---
Measurements Intervals [place] Rate: 76 P: 36 IA: 146 QRS: -41 QRSD: 89 T: 50 QT: 374 QTc: 423 Interpretive Statements SINUS RHYTHM LEFT AXIS DEVIATION PATTERN CONSISTENT WITH PULMONARY DISEASE BASELINE ARTIFACT- II, III, AVR, AVL, AVF, V1, V3-V6 BORDERLINE ECG COMPARED TO ECG 06/07/2023 06:37:58 NO SIGNIFICANT CHANGES Electronically Signed On 09-18-2023 16:55:24 BENZENE OPERATOR by Todd Fang D.O.
[2023-09-18 16:35] LABS: Basophils Percent Auto 0.6 % (0.2-1.2); Eosinophils Absolute Auto 0.1 K/mm3 (0-0.3); Eosinophils Percent Auto 1.4 % (0-4.4); Hematocrit 37.3 % (37.0-47.0); Hemoglobin 11.9 g/dL (12.0-15.0); Immature Granulocyte Absolute 0.06 K/mm3 (0.00-0.031); Immature Granulocyte Percent A 0.9 % (0-0.5); Lymphocytes Absolute Auto 1.75 K/mm3 (0.9-3.2); Lymphocytes Percent Auto 26.6 % (18.3-44.2); Mean Corpuscular HGB Conc 31.9 g/dl (32-36); Mean Corpuscular Volume 100.3 fl (80-100); Mean Platelet Volume 8.9 fl (7.4-10.4); Monocytes Absolute Auto 0.7 K/mm3 (0.1-0.6); Monocytes Percent Auto 10.2 % (2.6-8.5); Neutrophils Percent Auto 60.3 % (45.5-73.1); Platelet Count Result 361 k/mm3 (150-375); Red Blood Count 3.72 M/mm3 (4.2-5.4); Red Cell Distribution Width 16.9 % (11.5-14.5); White Blood Count 6.6 K/mm3 (4.5-10.0)
[2023-09-18 16:50] LABS: Prothrombin Time 13.5 Seconds (11.1-14.7)
[2023-09-18 16:51] LABS: Alanine Aminotransferase 26 U/L (6-35); Albumin Level 4.5 g/dL (3.5-5.1); Alkaline Phosphatase 61 U/L (38-126); Anion Gap 13 mmol/L (8-16); Aspartate Amino Transferase 25 U/L (14-36); Bilirubin,Total 0.3 mg/dL (0.2-1.3); Blood Urea Nitrogen 44 mg/dL (7-17); Carbon Dioxide 23 mmol/L (22-30); Chloride 103 mmol/L (98-107); Estimated CRCL calculation 25 ml/min; Estimated Glomerular Filt Rate 48; Glucose 123 mg/dL (65-110); Partial Thromboplastin Time 23.6 SECONDS (22.3-36.8); Potassium 3.8 mmol/L (3.4-5.0); Sodium 139 mmol/L (137-145)
[2023-09-18 17:01] LABS: Troponin I < 0.012 ng/mL (0.000-0.034)
--- NOTE | 2023-09-18 19:54 | ED.NEUROSD ---
HPI - Neuro Symptoms/Deficit General Chief Complaint: Suspected CVA Stated Complaint: facial twitching/garbled words Time Seen by Provider: 09/18/23 19:35 Source: patient and family (2 daughters) Limitations: no limitations History of Present Illness HPI Narrative: Patient is an 82-year-old female presents to the emergency department accompanied by 2 of her daughters for concerns of facial twitching. Patient points, states that she is here to who was hospitalized yesterday and that things current bother and does not know why she is here. Family states that yesterday around 6 or 7:00 p.m. they noticed that the patient was speaking she would sometimes have a bilateral facial twitch that was never been speaking with Oscar and go away and then it still going on today prompting and, for further evaluation here patient does not have any history is the past. Family is unsure whether not the patient has been taking her medications appropriately because her just got hospitalized. Patient denies dysphagia, dysphonia, slurred speech, confusion, chest pain, shortness of breath, recent injuries, recent illness, sore throat, nasal congestion, vomiting, diarrhea, melena, hematochezia, abdominal pain, vision changes headache, numbness, weakness, dysuria, rash. Related Data Home Medications Medication Instructions Recorded Confirmed magnesium 200 mg tablet 200 mg PO DAILY 12/01/20 08/06/23 [id number] fumarate 18 1 tab-cap PO DAILY 05/12/21 08/06/23 mg-FA 600 mcg-vit K 40 mcg capsule (Multi For Her) Sleep Aid (diphenhydramine) 25 mg PO HS PRN Sleep 06/01/23 08/06/23 megestrol 400 mg/10 mL (40 mg/mL) 200 mg PO DAILY 08/06/23 08/06/23 oral suspension prochlorperazine maleate 10 mg 10 mg PO Q6H PRN 08/06/23 08/06/23 tablet Allergies Allergy/AdvReac Type Severity Reaction Status Date / Time No Known Allergies Allergy Verified 08/06/23 13:46 Review of Systems Review of Systems: A 10 system review of systems was completed on the patient and is negative except for what is stated in the HPI. Nursing and ancillary documentation was reviewed. [facility] Past Medical History Medical History Colon cancer 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 Depression Essential hypertension Gastritis and duodenitis Hyperlipidemia Vitamin D deficiency Surgical History Surgical History History of bilateral cataract extraction History of cholecystectomy History of right hemicolectomy (06/07/23) History of umbilical hernia repair Umbilical hernia repair with 6.6 cm Parietex underlay mesh Family History Family History Mother Family history of dementia Hypertension Carcinoma of colon Father Hypertension Social History Social History Social History: Surrogate medical decision maker: Code status: Full code. Smoking status: Never smoker Second hand tobacco smoke exposure: No Alcohol intake: unknown Alcohol use details: Occasional, at holidays. Substance use: never Substance use type: does not use Lack of Transportation: No Lack of Food: Never True Current Housing: I Have Housing Concerned About Future Housing: No Difficulty Paying Gas/Electric Bills: No Difficulty Paying for Meds: No Currently Unemployed: No Education: High School Diploma/GED Difficulty w/ Childcare or Family Care: No Living arrangements: with family Additional living arrangements comments: . Lives with spouse in [place]. 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 Occupation/Education: retired Spiritual care concerns: No Comments At time of signature, I have reviewed and agree with nursing past me
--- NOTE | 2023-09-18 20:23 | ECG_ITS ---
Measurements Intervals [place] Rate: 76 P: 67 [place]: 161 QRS: -34 QRSD: 84 T: 66 QT: 390 QTc: 439 Interpretive Statements SINUS RHYTHM LEFT AXIS DEVIATION BASELINE ARTIFACT- I, III, AVR, AVL, AVF, V1-V2 BORDERLINE ECG COMPARED TO ECG 09/18/2023 16:20:01 NO SIGNIFICANT CHANGES Electronically Signed On 09-19-2023 7:44:02 METAL WASHING MACHINE OPERATOR by Todd Fang D.O.
[2023-09-18 20:25] LABS: Lipase 147 U/L (23-300); Magnesium 2.3 mg/dL (1.6-2.3)
[2023-09-18 20:30] LABS: Lactic Acid Reflex 1.1 mmol/L (0.7-2.0)
[2023-09-18 20:34] LABS: Creatine Kinase 97 U/L (30-135)
[2023-09-18] MEDS: SODIUM CHLORIDE 0.9% IV 1,000 ML 999 ML IV CONT (20:35)
[2023-09-18 20:42] LABS: Troponin I < 0.012 ng/mL (0.000-0.034)
[2023-09-18 20:53] LABS: Appearance Urine Clear (Clear); Bacteria Urine None Seen /hpf; Bilirubin Urine Negative (Negative); Blood Urine Negative (Negative); Color Urine Yellow (Yellow); Glucose Urine UA Negative (Negative); Ketones Urine Negative (Negative); Leukocyte Esterase Ur 1+ LEU/UL (Negative); Nitrate Urine Negative (Negative); Non Pathogenic Casts 0-2; Protein Urine Negative (Negative); RBC Urine 0-2 /hpf (0-2); Specific Grav Ur 1.021 (1.001-1.035); Squamous Epithelial Cell Urine None seen /hpf (Few); Urobilinogen Urine 0.2 mg/dL (<2.0)
[2023-09-18 20:57] LABS: Add Urine Microscopic? YES
--- NOTE | 2023-09-18 23:24 | PC.NURSE ---
report and care given to FINN Wallis. all questions answered.
== END 2023-09-18 23:42 | disposition home or self-care (01) ==
PROVIDERS: Emergency Medicine; Emergency Provider Student in an Organized Health Care Education/Training Program; PCP Family Medicine
DX: R25.3 Fasciculation (principal); N17.9 Acute kidney failure, unspecified; I10 Essential (primary) hypertension; E78.5 Hyperlipidemia, unspecified
CPT/HCPCS: 36415; 70450; 70496; 70498; 71045; 80053; 81001; 82550; 82948; 83605; 83690; 83735; 84443; 84484; 85025; 85610; 85730; 87086; 87088; 93005; 96360; 99284; J7030; Q9967

== ENCOUNTER 2023-10-18 10:26 | Day surgery (SDC) | payer OTHER, SELFPAY ==
--- NOTE | 2023-10-18 10:28 | WPDANESEPPF ---
Anes - Initial Pre Proc Eval Procedure: Operation Date: 10/18/23 12:00 Proposed Procedures p Esophagogastroduodenoscopy - Demetris Smith MD Date/Time: 10/18/23 10:28 Surgeon: Demetris Smith MD Pre Op Diagnosis: Gastrostomy status Patient Data Age: 83 Gender: F Height: Weight: Allergies Allergy/AdvReac Type Severity Reaction Status Date / Time No Known Allergies Allergy Verified 10/18/23 08:37 Home Medications Medication Instructions Recorded Confirmed Type magnesium 200 mg tablet 200 mg PO DAILY 12/01/20 09/20/23 History [id number] fumarate 18 1 tab-cap PO DAILY 05/12/21 09/20/23 History mg-FA 600 mcg-vit K 40 mcg capsule (Multi For Her) Sleep Aid (diphenhydramine) 25 mg PO HS PRN Sleep 06/01/23 09/20/23 History rosuvastatin 10 mg tablet 10 mg PO HS #90 tabs 07/30/23 09/20/23 Rx omeprazole 40 mg capsule,delayed 40 mg PO DAILY #90 caps 08/06/23 09/20/23 Rx release citalopram 10 mg tablet (Celexa) 10 mg PO DAILY #90 tabs 09/03/23 09/20/23 Rx ferrous sulfate 325 mg (65 mg 325 mg PO DAILY 10/18/23 History iron) tablet Patient hx anesthesia problems: none Family hx anesthesia problems: none Results Review: All pre-operative results and documents have been reviewed as part of the pre-operative evaluation. 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 Depression Essential hypertension Gastritis and duodenitis Gastrostomy present Hyperlipidemia Vitamin D deficiency Surgical History Surgical History History of bilateral cataract extraction History of cholecystectomy History of right hemicolectomy (06/07/23) History of umbilical hernia repair Umbilical hernia repair with 6.6 cm Parietex underlay mesh Family History Family History Mother Family history of dementia Hypertension Carcinoma of colon Father Hypertension Social History Social History Social History: Surrogate medical decision maker: Code status: Full code. Smoking status: Never smoker Second hand tobacco smoke exposure: No Alcohol intake: unknown Alcohol use details: Occasional, at holidays. Substance use: never Substance use type: does not use Lack of Transportation: No Lack of Food: Never True Current Housing: I Have Housing Concerned About Future Housing: No Difficulty Paying Gas/Electric Bills: No Difficulty Paying for Meds: No Currently Unemployed: No Education: High School Diploma/GED Difficulty w/ Childcare or Family Care: No Living arrangements: with family Additional living arrangements comments: . Lives with spouse in [place]. 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 Occupation/Education: retired Spiritual care concerns: No Anes - Eval Final PreProcedure Day of Procedure 10/18/23 10:28 Patient weight: normal Heart: regular rate and rhythm Lungs: decreased breath sounds Airway: Mallampati scale class II Neurological: other (alert) Last oral intake: 4 hours ASA classification: III Emergent: yes Anesthetic plan: proceed Anesthesia type and monitoring: general GIVS and standard monitoring Results Review: All pre-operative results and documents have been reviewed as part of the pre-operative evaluation. Informed Consent: The patient's anesthetic plan and its attendant risks and benefits were discussed with the patient/family/POA. Questions were solicited and answers provided to the satisfaction of the patient/family/POA.
[2023-10-18 10:48] VITALS: BP 129/53; PULSE 65; RESP 20; TEMP 36.1; O2SAT 100
[2023-10-18] MEDS: LACTATED RINGERS 1,000 ML 150 ML IV CONT (11:03)
[2023-10-18] MEDS: BENZOCAINE (*SP) 60 ML SPRAY CAN (HURRICAINE) 1 SPRAY MUCOUS MEM (11:05)
[2023-10-18 11:06] VITALS: BP 98/57; PULSE 66; RESP 21; O2SAT 100; BMI 25.8
[2023-10-18 11:16] VITALS: BP 109/66; PULSE 64; RESP 17; O2SAT 100
[2023-10-18 11:27] VITALS: BP 118/60; PULSE 60; RESP 16; O2SAT 100
== END 2023-10-18 11:32 | disposition home or self-care (01) ==
PROVIDERS: PCP Family Medicine; Visit Provider Internal Medicine Gastroenterology
PROC: 0DJ08ZZ Inspection of Upper Intestinal Tract, Via Natural or Artificial Opening Endoscopic (ICD-10-PCS; CPT 43235; principal; 2023-10-18 12:00)
DX: T18.2XXA Foreign body in stomach, initial encounter (principal); W44.8XXA Other foreign body entering into or through a natural orifice, initial encounter; F32.A Depression, unspecified; I10 Essential (primary) hypertension; E78.5 Hyperlipidemia, unspecified; E55.9 Vitamin D deficiency, unspecified; K29.70 Gastritis, unspecified, without bleeding; K29.80 Duodenitis without bleeding; Z90.49 Acquired absence of other specified parts of digestive tract; Z98.890 Other specified postprocedural states; Z92.21 Personal history of antineoplastic chemotherapy; Z85.038 Personal history of other malignant neoplasm of large intestine; Z80.0 Family history of malignant neoplasm of digestive organs
CPT/HCPCS: 43247; J2001; J2704; J7120

== ENCOUNTER 2023-12-29 09:23 | Outpatient (CLI) | payer OTHER, SELFPAY ==
--- NOTE | ~2023-12-29 | MR_ITS ---
EXAMINATION: MR brain/brain stem wo con DATE: 12/29/2023 10:05 INDICATION: Signs involving cognitive function. 2 years of forgetfulness. TECHNIQUE: Magnetic resonance imaging (MRI) of the brain and brainstem was performed without intraven ous contrast. Sequences included sagittal and axial T1-weighted SE, axial diffusion-weighted FS SE, a xial T2*-weighted GRE, axial T2-weighted FLAIR, and axial T2-weighted FSE. Apparent diffusion coeffic ient (ADC) maps were created. COMPARISON: None. FINDINGS: There are no areas of restricted diffusion to suggest acute infarction. No intracranial hemorrhage or abnormal intracranial mass lesion. 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 There are scattered areas of nonspecific increased T2-weighted signal intensity in the cerebral and pontine white matter, predominantly involving the de ep and periventricular white matter. There are no intraparenchymal signal abnormalities seen on the o ther pulse sequences. The ventricles are symmetric and normal in size. There are no abnormal extra-ax ial fluid collections. Flow voids are seen in the cerebral arteries on the T2-weighted sequences cons istent with their expected patency. Left vertebral artery is dominant. Changes of bilateral intraocul ar lens replacement. Mucosal thickening with near complete filling of the left maxillary sinus which demonstrates thickened sclerotic gordon consistent with chronic sinusitis. Mild mucoperiosteal thicken ing the anterior ethmoid air cells. IMPRESSION: 1. 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 No acute intracranial process. 2. Mild scattered nonspecific white matter T2 hyperintensity which is within normal limits for age an d likely sequela of chronic small vessel ischemic disease. Reviewed, dictated and finalized at location A. IMPRESSION: 1. 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 No acute intracranial process. 2. Mild scattered nonspecific white matter T2 hyperintensity which is within no rmal limits for age and likely sequela of chronic small vessel ischemic disease .
== END 2023-12-29 09:24 ==
LOC: MICIMG 09:24
PROVIDERS: PCP Family Medicine; Visit Provider Family Medicine
DX: R41.89 Other symptoms and signs involving cognitive functions and awareness (principal)
CPT/HCPCS: 70551

== ENCOUNTER 2024-12-22 09:50 | Outpatient (CLI) | payer OTHER, SELFPAY ==
--- OUTSIDE RECORDS SUMMARY | 2024-12-22 11:08 | XMS_ITS | Clinical Summary ---
Author Organization [facility] Address [address] [place] [address] Care Team Providers Care Foreclosure Specialist Name Role Phone Denia Kincaid MD Primary Care Provider Allergies No known active allergies Medications rosuvastatin (CRESTOR) 10 mg tablet Take 10 mg by mouth daily. Active lisinopril-hydr oCHLOROthiazide (ZESTORETIC) 10-12.5 mg tablet Take 1 Tablet by mouth daily. Active multivitamin (DAILY-ROLDAN) tablet Take 1 Tablet by mouth daily. Active ferrous sulfate 325 mg (65 mg iron) tablet Take 325 mg by mouth daily. Active MAGNESIUM CITRATE ORAL Take by mouth. Ac tive cholecalciferol , vitamin D3, 5,000 unit Take 400 Units by mouth daily. Active ondansetron (ZOFRAN ODT) 8 mg Tablet, Rapid DissolveIndicat ions:Malignant neoplasm of colon, unspecified part of colon (CMS/HCC) Dissolve 1 tablet on top of tongue then swallow with saliva every 8 hours as needed for nausea or vomiting 30 Tablet 1 07/04/20 23 Active lidocaine-prilo antonio (EMLA) 2.5-2.5 % CreamIndication s:Malignant neoplasm of colon, unspecified part of colon (CMS/HCC) Apply to affected area see administration instructions. 30 Gram 1 07/04/20 23 Active prochlorperazin e maleate (COMPAZINE) 10 mg tablet Take 1 Tablet (10 mg) by mouth every 6 hours as needed for Nausea/Emesis. 30 Tablet 1 07/20/20 23 Active megestroL (MEGACE) 400 mg/10 mL (40 mg/mL) suspension Take 5 mL (200 mg) by mouth daily. 240 mL 1 07/20/20 23 Active Active Problems No known active problems Encounters Date Type Department Care Team Description 10/09/2024 External Device Data [facility]STRACTION Provider, Abstract 10/08/2024 External Device Data [facility] ABSTRACTION Provider, Abstract 10/07/2024 External Device Data [facility] ABSTRACTION Provider, Abstract from Last 3 Months Family History Medical History Relation Name Comments Colon Cancer Mother Relation Name Status Comments Brother Alive Daughter 1 Alive Daughter 2 Alive Daughter 3 Alive Father Mother Son Alive Social History Tobacco Use Types Packs/Day Years Used Date Smoking Tobacco: Never Smokeless Tobacco: Never Tobacco Cessation:Counseling Given: Not Answered Alcohol Use Standard Drinks/Week Comments Never 0 (1 standard drink = 0.6 oz pur e alcohol) Comments Unknown Sex and Gender Information Value Date Recorded Sex Assigned at Not on file Legal Sex Female 10:51 AM CDT Gender Identity Not on file Sexual Orientation Not on file Last Filed Vital Signs Vital Sign Reading Time Taken Comments Blood Pressure 73/47 06/19/2023 1:31 PM CDT Pulse 91 06/19/2023 1:28 PM CDT Temperature 36.2 C (97.1 F) 06/19/2023 1:28 PM CDT Respiratory Rate 10 06/19/2023 1:28 PM CDT Oxygen Saturation 100% 06/19/2023 1:28 PM CDT Inhaled Oxygen Concentration - - Weight 53.1 kg (117 lb) 06/19/2023 1:28 PM CDT Height 154.9 cm (5' 1 ) 06/19/2023 1:28 PM CDT Body Mass Index 22.11 06/19/2023 1:28 PM CDT Plan of Treatment Health Maintenance Due Date Last Done Comments DTAP/TDAP/TD VACCINES (1 - Tdap) 1959 PNEUMOCOCCAL VACCINE 50+ YEARS (1 of 1 - PCV) 10/03/18 91 ZOSTER VACCINE (1 of 2) 1990 OSTEOPOROSIS SCREENING 2005 RSV VACCINE (60+ or ) (1 - 1-dose 75+ series) 2015 INFLUENZA VACCINE (#1) 2024 Insurance [employer] M[employer] RX MEDIMPACT Member Subscriber Plan / Payer (Ef fective 2016-Present) Name:Loly Duncan Relation to Subscriber:Self Name:Loly Duncan Payer ID:Not on file Group ID:[id number] Type:RX Medicare Part D Address: [place] Care Teams Foreclosure Specialist Relationship Specialty Start Date End Date Denia Kincaid MD [address] [place] [address] PCP - General Family Practice 05/10/23
[2024-12-22 11:23] LABS: Basophils Absolute Auto 0.1 K/mm3 (0.0-0.1); Basophils Percent Auto 0.7 % (0.2-1.2); Eosinophils Absolute Auto 0.2 K/mm3 (0-0.3); Eosinophils Percent Auto 1.7 % (0-4.4); Hematocrit 39.3 % (37.0-47.0); Hemoglobin 12.8 g/dL (12.0-15.0); Immature Granulocyte Absolute 0.05 K/mm3 (0.00-0.031); Immature Granulocyte Percent A 0.6 % (0-0.5); Lymphocytes Absolute Auto 2.09 K/mm3 (0.9-3.2); Lymphocytes Percent Auto 23.6 % (18.3-44.2); Mean Corpuscular HGB Conc 32.6 g/dl (32-36); Mean Corpuscular Hemoglobin 30.9 pg (26-34); Mean Corpuscular Volume 94.9 fl (80-100); Mean Platelet Volume 9.3 fl (7.4-10.4); Monocytes Absolute Auto 1.1 K/mm3 (0.1-0.6); Monocytes Percent Auto 12.6 % (2.6-8.5); Neutrophils Absolute Auto 5.4 K/mm3 (1.3-6.7); Neutrophils Percent Auto 60.8 % (45.5-73.1); Platelet Count Result 251 k/mm3 (150-375); Red Blood Count 4.14 M/mm3 (4.2-5.4); Red Cell Distribution Width 14.5 % (11.5-14.5); White Blood Count 8.8 K/mm3 (4.5-10.0)
[2024-12-22 12:42] LABS: Alanine Aminotransferase 22 U/L (6-35); Albumin Level 4.3 g/dL (3.5-5.1); Alkaline Phosphatase 70 U/L (38-126); Anion Gap 7 mmol/L (4-12); Aspartate Amino Transferase 33 U/L (14-36); Bilirubin,Total 0.2 mg/dL (0.2-1.3); Blood Urea Nitrogen 17 mg/dL (7-17); Calcium 9.6 mg/dL (8.4-10.2); Carbon Dioxide 29 mmol/L (22-30); Chloride 105 mmol/L (98-107); Cholesterol 178 mg/dL (0-200); Estimated Glomerular Filt Rate 54; Glucose 99 mg/dL (65-110); HDL Direct 85 mg/dL; Potassium 4.7 mmol/L (3.4-5.0); Sodium 141 mmol/L (137-145); Triglycerides 176 mg/dL (<150)
[2024-12-22 12:53] LABS: LDL Cholesterol Direct 70 mg/dL
[2024-12-22 13:10] LABS: Vitamin D 25 Hydroxy 33.3 ng/mL
[2024-12-22 15:23] LABS: Hemoglobin A1C 5.4 % (<5.7)
== END 2024-12-22 09:51 | disposition home or self-care (01) ==
PROVIDERS: PCP Family Medicine; Visit Provider Family Medicine
DX: R73.9 Hyperglycemia, unspecified (principal); E78.5 Hyperlipidemia, unspecified; E55.9 Vitamin D deficiency, unspecified; E78.2 Mixed hyperlipidemia; Z00.00 Encounter for general adult medical examination without abnormal findings; I10 Essential (primary) hypertension; F32.A Depression, unspecified
CPT/HCPCS: 36415; 80053; 80061; 82306; 83036; 84443; 85025

== ENCOUNTER 2025-02-11 08:27 | Outpatient (CLI) | payer OTHER, SELFPAY ==
--- OUTSIDE RECORDS SUMMARY | 2025-02-11 08:31 | XMS_ITS | Clinical Summary ---
Author Organization [facility] Address [address] [place] [address] Care Team Providers Care Incendiaries Supervisor Name Role Phone Denia Kincaid MD Primary [...] Encounters Date Type Department Care Team Description 01/08/2025 Orders Only [facility] [address] [place] [address] Agustin Greenberg MD Malignant neoplasm of colon, unspecified part of colon (CMS/HCC) (Primary Dx) from Last 3 Months Family History Medical [...] 1:28 PM CDT Height 154.9 cm (5' 1) 06/19/2023 1:28 PM CDT Body Mass Index 22.11 06/19/2023 1:28 PM CDT Plan of Treatment Upcoming Encounters Date Type Department Care Team (Late st Contact Info) Description 02/11/2025 8:45 AM CDT Office Visit [facility] [address] [place] [address] Agustin Greenberg MD [address] [place] [address] Health Maintenance Due Date Last Done Comments DTAP/TDAP/TD VACCINES (1 - Tdap) 1959 PNEUMOCOCCAL VACCINE 50+ YEARS (1 of 1 - PCV) 10/03/18 91 ZOSTER VACCINE (1 of 2) 1990 OSTEOPOROSIS SCREENING 2005 RSV VACCINE (60+ or ) (1 - 1-dose 75+ series) 2015 INFLUENZA VACCINE (#1) 2024 Medicare Advantage [place]) Prev entative Visit/Annual Wellness Visit 09/17/2024 Insurance [employer] O MCR RX MEDIMPACT Member Subscriber Plan / Payer (Ef fective 2016-Present) Name:Loly Duncan Relation to Subscriber:Self Name:Loly Duncan Payer ID:Not on file Group ID:[id number] Type:RX Medicare Part D Address: [place] Care Teams Incendiaries Supervisor Relationship Specialty Start Date End Date Denia Kincaid MD [address] [place] [address] PCP - General Family Practice 05/10/23
[2025-02-11 08:51] LABS: Basophils Absolute Auto 0.1 K/mm3 (0.0-0.1); Eosinophils Absolute Auto 0.1 K/mm3 (0-0.3); Eosinophils Percent Auto 1.3 % (0-4.4); Hematocrit 37.7 % (37.0-47.0); Hemoglobin 12.6 g/dL (12.0-15.0); Immature Granulocyte Absolute 0.03 K/mm3 (0.00-0.031); Immature Granulocyte Percent A 0.5 % (0-0.5); Lymphocytes Absolute Auto 1.77 K/mm3 (0.9-3.2); Lymphocytes Percent Auto 28.6 % (18.3-44.2); Mean Corpuscular HGB Conc 33.4 g/dl (32-36); Mean Corpuscular Hemoglobin 31.6 pg (26-34); Mean Corpuscular Volume 94.5 fl (80-100); Mean Platelet Volume 8.8 fl (7.4-10.4); Monocytes Absolute Auto 0.8 K/mm3 (0.1-0.6); Monocytes Percent Auto 12.5 % (2.6-8.5); Neutrophils Absolute Auto 3.5 K/mm3 (1.3-6.7); Neutrophils Percent Auto 56.1 % (45.5-73.1); Platelet Count Result 238 k/mm3 (150-375); Red Blood Count 3.99 M/mm3 (4.2-5.4); Red Cell Distribution Width 14.2 % (11.5-14.5); White Blood Count 6.2 K/mm3 (4.5-10.0)
[2025-02-11 08:57] LABS: Blood Urea Nitrogen 16 mg/dL (8-26); Carbon Dioxide 25 mmol/L (22-30); Chloride 105 mmol/L (98-109); Estimated Glomerular Filt Rate 43; Glucose 110 mg/dL (70-105); Ionized Calcium (POC) 1.23 mmol/L (1.11-1.31); Potassium 4.2 mmol/L (3.5-4.9); Sodium 141 mmol/L (138-146)
[2025-02-11 11:24] LABS: Carcinoembryonic Antigen 0.9 ng/mL (0.0-3.0)
== END 2025-02-11 08:28 | disposition home or self-care (01) ==
LOC: ANHLAB 08:29
PROVIDERS: PCP Family Medicine; Visit Provider Internal Medicine Hematology & Oncology
DX: C18.9 Malignant neoplasm of colon, unspecified (principal)
CPT/HCPCS: 36415; 80047; 82378; 85025

== ENCOUNTER 2025-03-11 09:26 | Outpatient (CLI) | payer OTHER, SELFPAY ==
--- NOTE | ~2025-03-11 | CT_ITS ---
CT of the Abdomen and Pelvis: Indication: Colon cancer Technique: 2.5 mm axial scans were obtained through the abdomen and pelvis following intravenous adm inistration of 100 cc of Omnipaque 350. Dose reduction technique was used on this scan by utilizing a utomated exposure control and iterative reconstruction technique. The dose-length product (DLP) was 6 99.21 mGy-cm. COMPARISON: 07/30/2023 Findings: Scans through the lung bases are unremarkable. There is diffuse hepatic steatosis. Cholecystectomy clips are present. The spleen, pancreas, adrenals and kidneys are within normal limits. There are atherosclerotic calcifications of the aorta. No lym phadenopathy. No bowel obstruction or bowel wall thickening. Postoperative changes of large bowel noted. Images through the pelvis were performed. Urinary bladder unremarkable. No pelvic mass seen. No ascit es. Impression: No evidence for active malignancy or metastatic disease. Postoperative change of large bowel noted. Diffuse hepatic steatosis. Reviewed, dictated and finalized at location . Impression: No evidence for active malignancy or metastatic disease. Postoperative change o f large bowel noted. Diffuse hepatic steatosis.
[2025-03-11 09:54] LABS: Estimated Glomerular Filt Rate 39
== END 2025-03-11 09:27 | disposition home or self-care (01) ==
PROVIDERS: PCP Family Medicine; Visit Provider Internal Medicine Hematology & Oncology
DX: C18.9 Malignant neoplasm of colon, unspecified (principal); K76.0 Fatty (change of) liver, not elsewhere classified
CPT/HCPCS: 74177; Q9967

== ENCOUNTER 2025-07-14 15:23 | Outpatient (CLI) | payer OTHER, SELFPAY ==
--- OUTSIDE RECORDS SUMMARY | 2025-07-14 17:28 | XMS_ITS | Clinical Summary ---
Author Organization [facility] Hallie Barnes Address [address] [place] [address] Care Team Providers Care Lead Blender Name Role Phone Denia Kincaid MD Primary [...] Encounters Date Type Department Care Team Description 07/07/2025 External Device Data [facility] ABSTRACTION Provider, Abstract 05/19/2025 External Device Data [facility] ABSTRACTION Provider, Abstract 05/05/2025 External Device Data [facility]STRACTION Provider, Abstract 04/22/2025 External Device Data [facility] ABSTRACTION Provider, Abstract [...] Sign Reading Time Taken Comments Blood Pressure 127/81 02/11/2025 9:06 AM CDT Pulse 70 02/11/2025 9:06 AM CDT Temperature 36.6 C (97.9 F) 02/11/2025 9:06 AM CDT Respiratory Rate 15 02/11/2025 9:06 AM CDT Oxygen Saturation 95% 02/11/2025 9:0 6 AM CDT Inhaled Oxygen Concentration - - Weight 72.6 kg (160 lb) 02/11/2025 9:06 AM CDT Pt verbally stated that this is the correct weight Height 154.9 cm (5' 1) 06/19/2023 1:28 PM CDT Body Mass Index 30.23 06/19/2023 1:28 PM CDT Plan of Treatment Upcoming Encounters Date Type Department Care Team (Late st Contact Info) Description 09/29/2025 10:15 AM STOCKROOM ASSOCIATE Office Visit [facility] Oncology and Hematology - [place] [address] [place] [address] Agustin Greenberg MD [address] [place] [address] Health Maintenance Due Date Last Done Comments DTAP/TDAP/TD VACCINES (1 - Tdap) 1959 PNEUMOCOCCAL VACCINE 50+ YEARS (1 of 1 - PCV) 10/03/18 91 ZOSTER VACCINE (1 of 2) 1990 OSTEOPOROSIS SCREENING 2005 RSV VACCINE (60+ or ) (1 - 1-dose 75+ series) 2015 INFLUENZA VACCINE (#1) 2025 Insurance [employer] M[employer] RX MEDIMPACT Member Subscriber Plan / Payer (Ef fective 2016-Present) Name:Loly Duncan Relation to Subscriber:Self Name:Loly Duncan Payer ID:Not on file Group ID:[id number] Type:RX Medicare Part D Address: [place] Care Teams Lead Blender Relationship Specialty Start Date End Date Denia Kincaid MD [address] [place] [address] PCP - General Family Practice 05/10/23
[2025-07-14 19:08] LABS: Alanine Aminotransferase 28 U/L (6-35); Albumin Level 4.2 g/dL (3.5-5.1); Alkaline Phosphatase 72 U/L (38-126); Anion Gap 8 mmol/L (4-12); Aspartate Amino Transferase 49 U/L (14-36); Bilirubin,Total 0.6 mg/dL (0.2-1.3); Blood Urea Nitrogen 19 mg/dL (7-17); Calcium 9.4 mg/dL (8.4-10.2); Carbon Dioxide 27 mmol/L (22-30); Chloride 103 mmol/L (98-107); Estimated Glomerular Filt Rate 52; Glucose 113 mg/dL (65-110); Potassium 4.5 mmol/L (3.4-5.0); Sodium 138 mmol/L (137-145); Total Protein 7.3 g/dL (6.3-8.2)
[2025-07-14 19:43] LABS: Thyroid Stimulating Hormone Reflex 2.150 uIU/mL (0.465-4.68)
[2025-07-14 20:01] LABS: Vitamin B12 813.0 pg/mL (239-931)
== END 2025-07-14 15:24 | disposition home or self-care (01) ==
LOC: ANHGOSHLAB 15:24
PROVIDERS: PCP Family Medicine; Visit Provider Family Medicine
DX: E53.8 Deficiency of other specified B group vitamins (principal); F32.A Depression, unspecified; I10 Essential (primary) hypertension
CPT/HCPCS: 36415; 80053; 82607; 84443